=== PATIENT | male | born 1940 | race Caucasian/White ===

== ENCOUNTER 2017-10-23 19:05 | Inpatient (IN) | payer OTHER ==
[~2017-10-23] VITALS: Ht 167.6 cm; Wt 86.2 kg
[2017-10-23 20:30] VITALS: BP 172/93; PULSE 102; TEMP 36.7; O2SAT 91
[2017-10-23 21:20] VITALS: Ht 167.6 cm; Wt 86.2 kg
[2017-10-23] MEDS ORDERED: INFLUENZA VACCINE HIGH DOSE 65+ 0.5 ML SYR IM. ONE (21:45)
[2017-10-23] MEDS ORDERED: INFLUENZA ADMINISTRATION CHARGE ONE (21:45)
[2017-10-23] MEDS ORDERED: PATIENT'S ALLERGY INFO NEEDS ENTERED SCH (22:00)
[2017-10-23] MEDS ORDERED: FRS/40 PO (22:10)
[2017-10-23] MEDS ORDERED: POTA10CA28 PO (22:22)
[2017-10-23] MEDS ORDERED: TRAM-10 PO (22:22)
[2017-10-23] MEDS ORDERED: FENO145T26 PO (22:22)
[2017-10-23] MEDS ORDERED: DUTA0.5C PO (22:22)
[2017-10-23] MEDS ORDERED: DOXE10CA PO (22:22)
[2017-10-23] MEDS ORDERED: NTRGSL/4 UT (22:22)
[2017-10-23] MEDS ORDERED: MELO7.5T5 PO (22:22)
[2017-10-23] MEDS ORDERED: METO25TA4 PO (22:22)
[2017-10-23] MEDS ORDERED: MOME200A INH (22:22)
[2017-10-23] MEDS ORDERED: LEVO1TAB33 PO (22:22)
[2017-10-23] MEDS ORDERED: LOSA1TAB PO (22:22)
[2017-10-23] MEDS ORDERED: ESCI1TAB10 PO (22:22)
[2017-10-23] MEDS ORDERED: PANT1TAB3 PO (22:22)
[2017-10-23] MEDS ORDERED: TAMS0.4C38 PO (22:27)
[2017-10-23] MEDS ORDERED: ISOS30TA3 PO (22:27)
[2017-10-23] MEDS ORDERED: SITA100T3 PO (22:27)
[2017-10-23] MEDS ORDERED: ALBU2SYP9 NEB (22:27)
[2017-10-23] MEDS ORDERED: IPRASOL4 INH (22:27)
[2017-10-23] MEDS ORDERED: NITROGLYCERIN 0.4 MG SL PER TAB CHARGE UT PRN (23:15)
[2017-10-23] MEDS ORDERED: FUROSEMIDE 40 MG TAB PO PRN (23:15)
[2017-10-23] MEDS ORDERED: NITROGLYCERIN 0.4 MG SL PER TAB CHARGE SL PRN (23:30)
[2017-10-23] MEDS ORDERED: VANCOMYCIN INJ 1,000 MG in SODIUM CHLORIDE 0.9% 250ML 250 ML IV SCH (23:30)
[2017-10-23] MEDS ORDERED: MAGNESIUM HYDROXIDE SUSP 30 ML UDC PO PRN (23:30)
[2017-10-23] MEDS ORDERED: ONDANSETRON INJ 2 MG/ML 2 ML VIAL IV PRN (23:30)
[2017-10-23 23:55] VITALS: BP 164/84; PULSE 100; TEMP 36.9; O2SAT 91
[2017-10-24] VITALS (12 sets, daily range): BP systolic 147–169; BP diastolic 72–89; PULSE 61–95; TEMP 36.5–36.7; O2SAT 90–97
[2017-10-24] MEDS ORDERED: PIPERACILL/TAZOBAC IV 3.375 GM in DEXTROSE 5% 100ML IV ONE ×2
[2017-10-24] MEDS ORDERED: VANCOMYCIN INJ 2,000 MG in SODIUM CHLORIDE 0.9% 500ML 500 ML IV SCH ×2
[2017-10-24 00:04] LABS: BASO % 0.1 %; BASO ABS # 0.01 K/uL (0-0.2); HEMATOCRIT 42.6 % (42-52); HEMOGLOBIN 14.5 g/dL (14.0-18.0); IG# 0.16 K/uL (0.00-0.02); LYMPH % 4.7 %; LYMPH ABS # 0.58 K/uL (1.2-3.4); MEAN CELL VOLUME 89.3 fL (80-100); MEAN CORPUSCULAR HEMOGLOBIN 30.4 pg (25-34); MONO ABS # 0.12 K/uL (0.11-0.59); NEUT % 92.9 %; NEUT ABS # 11.43 K/uL (1.4-6.5); PLATELET COUNT 376 K/uL (130-400); RED CELL DISTRIBUTION WIDTH CV 14.2 % (11.5-14.5); RED CELL DISTRIBUTION WIDTH SD 46.6 fL (36.4-46.3)
--- NOTE | 2017-10-24 00:31 | History and Physical ---
History & Physical Date & Time of Service: Oct 24, 2017 at 00:00 Chief Complaint: Pneumonia, Copd Primary Care Physician: No Doctor, Assigned History of Present Illness Source: patient, hospital records The patient is a 77-year-old male with a past medical history of End Stage COPD , Type 2 diabetes, hypertension, congestive heart failure, and CAD with CABG x 4 , that presents as a transfer from [facility] for worsening shortness of breath and pneumonia. The patient was initially evaluated 3 days ago with cough and dyspnea and was sent on chest x-ray to have a right sided lung consolidation. The patient was started on by mouth Levaquin and discharged home. Earlier today the patient returned to the hospital with worsening shortness of breath and increased work of breathing. The patient states that he has had this cough for the last month, and it has recently become productive of clear sputum. He denies any fevers or chills during this time but states that in the hospital he is started to develop some sweats. The patient is normally on 2 L of oxygen at home, and currently smokes 2 packs per day which is how much she has been smoking for an extensive period of time. The patient also states that he has been having left sided pain around his abdomen and flank for the last month as well along with this cough. At [facility] his chest x-ray showed a questionable mass or infiltrate that had changed in size from a few years ago, and due to concern of the worsening pulmonary status of the patient with the concerning chest x-ray findings the patient was transferred to [facility]. His PCP is Mica Lacey in [place], [place] Family History Noncontributory Social History Smoking Status: Current Every Day Smoker Smokeless Tobacco Use: No Alcohol Use: none Drug Use: none Occupational Status: retired Immunizations History of Influenza Vaccine: Unknown History of Tetanus Vaccine?: Unknown History of Pneumococcal: Unknown History of Hepatitis B Vaccine: Unknown Multi-Drug Resistant Organisms History of MDRO: No Allergies Coded Allergies: Cortisone (Verified Allergy, Unknown, unknown, 10/23/17) Home Medications Scheduled Dutasteride (Avodart), 0.5 MG PO DAILY Escitalopram Oxalate (Lexapro), 20 MG PO DAILY Fenofibrate (Tricor ), 1 TAB PO DAILY Isosorbide Mononitrate Ext Rel (Imdur Ext Rel), 1 TAB PO DAILY Levofloxacin (Levaquin), 500 MG PO DAILY Losartan Potassium (Cozaar), 1 TAB PO DAILY Meloxicam (Mobic), 15 MG PO DAILY Metoprolol Succinate (Toprol Xl), 1 TAB PO DAILY Mometasone Furoate-Formoterol (Dulera 200/5 Mcg), 1 AER INH BID Pantoprazole (Protonix), 1 TAB PO DAILY Potassium Chloride (Micro-K Ext Rel), 20 MEQ PO DAILY Sitagliptin Phosphate (Januvia), 100 MG PO DAILY Tamsulosin Hcl (Flomax), 0.4 MG PO DAILY Scheduled PRN Albuterol Sulf (Ventolin), 2 NEB QID PRN for Shortness of Breath Furosemide (Lasix), 40 MG PO DAILY PRN for edema Ipratropium-Albuterol (Duoneb), 1 TREATMENT INH Q4H PRN for Shortness of Breath Nitroglycerin (Nitrostat), 0.4 MG UT PRN PRN for Chest Pain Tramadol (Ultram), 50 MG PO Q6H PRN for Pain Miscellaneous Medications Doxepin (Sinequan), 3 MG PO Review of Systems Constitutional: + sweats, + fatigue, No fever, No chills, No weight loss Respiratory: + cough, + sputum, + wheezing, + shortness of breath, + dyspnea on exertion, + dyspnea at rest, No hemoptysis Cardiovascular: + edema, No chest pain, No palpitations Abdomen: No pain, No nausea, No vomiting, No diarrhea, No constipation Endocrine: + fatigue Physical Exam Vital Signs Date Time Temp Pulse Resp B/P (MAP) Pulse Ox O2 Delivery O2 Flow Rate FiO2 10/23/17 21:20 Nasal Cannula 3.0 10/23/17 20:30 36.7 102 22 172/93 (119) 91 Nasal Cannula 3.0 General Appearance: WD/WN, no apparent distress Head: normocephalic, atraumatic Eyes: normal inspection, sclerae normal Neck: supple, no carotid bruits Respiratory/Chest: chest non-tender, + decreased breath sounds, + wheezing Cardiovascular: regular rate, rhythm, no gallop, no murmur Abdomen/GI: normal bowel sounds, non tender, soft, + distended Extremities/Musculoskelatal: no calf tenderness, + pedal edema Neurologic/Psych: alert, normal mood/affect, oriented x 3 Diagnostics Laboratory Results Results Past 24 Hours Test 10/23/17 23:54 Range/Units Impression Assessment and Plan The patient is a 77-year-old male with a past medical history of End Stage COPD , Type 2 diabetes, hypertension, congestive heart failure, and CAD with CABG x 4 , that presents as a transfer from [facility] for worsening shortness of breath and pneumonia. 1) Acute Hypoxic Respiratory Failure 2/2 RLL Pneumonia - Admit to telemetry - Chest CT --> Upper lobe pleural effusion with appearance of pneumonia/ multiple abscesses throughout the right lung. Also appearance of multiple liver mets - 2 View CXR ordered - Vancomycin, Zosyn, and Levaquin - Duonebs - Supplemental oxygen to maintain SpO2 > 92% - CBC, CMP - CXR from [facility]: Large airspace consolidation in the right lung base - Pulmonary Consult - Thoracic Surgery Consult 2) Questionable Malignancy - Son apparently stated that during previous hip surgery a tumor was discovered although at that time the patient refused further evaluation - On CT chest patient has appearance of liver mets in addition to concerning lung findings - Extensive smoking history (2 PPD for 40-50 years) 3) End Stage COPD - Supplemental oxygen - Duonebs - Currently on Dulera at home --> Ordered Budesonide 4) Diabetes Mellitus - Hold home Sitagliptin - BSG of 354 --> Gave 20 units of Lantus and 16 units of Novolog one time - Sliding scale insulin - BSG AC and HS - HbA1c - Glycemic consult 5) CHF - Continue home Lasix and Imdur - Continue home potassium - ECHO ordered 6) Hyperlipidemia - Continue home Fenofibrate 7) Hypertension - Continue home Losartan and metoprolol 8) Depression - Continue home Doxepin and Lexapro 9) BPH - Tamsulosin 10) Chronic Pain - Tramadol 50mg q6h PRN 11) Smoking Cessation - Nicotine Patch 21mg qAM 12) DVT Prophylaxis - SCDs 13) Code Status - Full Resuscitation Attending addendum: I have physically seen this patient, have supervised the medical residents activities, and agree with the H&P unless as otherwise noted. Assessment and Plan: Acute respiratory failure with hypoxia/pneumonia/pleural effusion/end-stage COPD -- Vancomycin IV per pharmacokinetic monitoring Zosyn 3.375 mg IV every 8 hours Levofloxacin 500 mg IV every 24 hours Duonebs every 4 hours while awake and every 2 hours when necessary. Pulmicort Respules 0.5 mg inhaled twice a day Guaifenesin extended release 600 mg by mouth twice a day Nasal cannula oxygen titrate to keep pulse ox greater than or equal to 92% Thoracic surgery consult Dr. Mock Pulmonology consult CAD/hypertension/CHF-- The patient will be admitted to telemetry for serial cardiac enzymes, serial EKG's, cardiac rhythm monitoring and a 2-D echocardiogram with Dopplers. Continue Lasix, Imdur, potassium, losartan and metoprolol tartrate Level of Care Telemetry Advanced Directives Existing Advance Directive: No Existing Living Will: No Existing Power of [employer]ist: No Resuscitation Status FULL RESUSCITATION VTE Prophylaxis VTE Risk Assessment Done? Y/N: Yes Risk Level: Moderate Given or contraindicated: SCD's Resident Tracking Resident Involvement: Resident Care Provided Care Provided: Adult Hospital Medicine
[2017-10-24 00:54] LABS: ALBUMIN 2.3 gm/dl (3.4-5.0); ALKALINE PHOSPHATASE 112 U/L (45-117); ALT/SGPT 32 U/L (12-78); AST/SGOT 52 U/L (15-37); BLOOD UREA NITROGEN 13 mg/dl (7-18); CALCIUM 9.2 mg/dl (8.5-10.1); CARBON DIOXIDE 30 mmol/L (21-32); CREATININE 0.98 mg/dl (0.60-1.40); GLUCOSE 354 mg/dl (70-99); POTASSIUM 4.6 mmol/L (3.5-5.1); SODIUM 131 mmol/L (136-145); TOTAL PROTEIN 6.9 gm/dl (6.4-8.2)
[2017-10-24] MEDS: BUDESONIDE 0.5 MG/2 ML VIAL (PULMICORT) INH SCH ×2 (01:15→07:42)
[2017-10-24] MEDS ORDERED: INSULIN GLARGINE SOLOSTAR 100 UNITS/ML 3 ML PEN SC ONE ×2 (01:15→08:00)
[2017-10-24] MEDS ORDERED: PHARMACY GLYCEMIC MGMT CONSULT PRN (01:41)
[2017-10-24] MEDS ORDERED: INSULIN GLARGINE SOLOSTAR 100 UNITS/ML 3 ML PEN SC STA (01:46)
[2017-10-24] MEDS ORDERED: GLUCOSE 40% GEL 15 GM TUBE PO PRN (02:00)
[2017-10-24] MEDS ORDERED: INSULIN HUMAN REGULAR PER UNIT 6 UNITS in SYRINGE 5.94 ML IV SCH (02:00)
[2017-10-24] MEDS ORDERED: GLUCAGON FOR INJ 1 MG VIAL SQ PRN (02:00)
[2017-10-24] MEDS ORDERED: GLUCOSE 10 TABS/TUBE PO PRN (02:00)
[2017-10-24] MEDS: LEVOFLOXACIN 750 MG TAB PO SCH ×2 (02:10→08:35)
[2017-10-24] MEDS ORDERED: IV FLUIDS COMPLETED PRN (03:00)
[2017-10-24] MEDS ORDERED: INSULIN ASPART 100 UNITS/ML 3 ML PEN SC SCH (04:00)
[2017-10-24] MEDS: PIPERACILL/TAZOBAC IV 3.375 GM in DEXTROSE 5% 100ML 100 ML IV SCH ×3 (04:16→20:19)
[2017-10-24] MEDS: ALBUT/IPRATROP 3MG/0.5MG NEB 3 ML VIAL INH SCH ×3 (07:42→19:35)
[2017-10-24] MEDS ORDERED: ALBUT/IPRATROP 3MG/0.5MG NEB 3 ML VIAL INH SCH (08:00)
[2017-10-24] MEDS ORDERED: FORMOTEROL FUMA NEBULIZER SOLN 20 MCG/2 ML VIAL INH SCH (08:00)
--- NOTE | 2017-10-24 08:06 | DIAGNOSTIC IMAGING REPORT ---
CHEST 2 VIEWS ROUTINE CLINICAL HISTORY: Pneumonia, Pleural Effusions COMPARISON STUDY: No previous studies for comparison. FINDINGS: Right basilar pleural effusion and or consolidative change. Right midlung infiltrate. Mild congestive failure. Left lung is grossly clear. Pulmonary vasculature is prominent. IMPRESSION: Congestive heart failure with a right basilar effusion versus superimposed consolidative infiltrate. The above report was generated using voice recognition software. It may contain grammatical, syntax or spelling errors. Electronically signed by: Minor Davila M.D. 10/24/2017 8:04 AM Dictated Date/Time: 10/24/2017 8:03 AM
--- NOTE | 2017-10-24 08:07 | DIAGNOSTIC IMAGING REPORT ---
CHEST DECUBS CLINICAL HISTORY: Pneumonia, Pleural Effusions basilar consolidation COMPARISON STUDY: Chest films same date FINDINGS: Layering right pleural effusion. Trace layering left effusion. Persistent prominence of pulmonary vasculature. IMPRESSION: 1. Layering right effusion. 2. Trace layering left effusion. The above report was generated using voice recognition software. It may contain grammatical, syntax or spelling errors. Electronically signed by: Minor Davila M.D. 10/24/2017 8:05 AM Dictated Date/Time: 10/24/2017 8:05 AM
[2017-10-24] MEDS ORDERED: VANCOMYCIN CONSULT ACTIVE PRN (08:30)
[2017-10-24] MEDS ORDERED: PIPERACILL/TAZOBAC CONSULT ACTIVE PRN (08:30)
--- NOTE | 2017-10-24 08:30 | DIAGNOSTIC IMAGING REPORT ---
(CHEST) THORAX WITHOUT CT DOSE: 660.85 mGy.cm HISTORY: Pneumonia, questionable mass TECHNIQUE: Multiaxial CT images of the chest were performed without contrast. A dose lowering technique was utilized adhering to the principles of ALARA. COMPARISON: None. FINDINGS: Multiple hypodense lesions seen throughout the liver with the largest in the left hepatic lobe measuring 3 cm. These are highly suspicious for metastatic disease. The visualized spleen and adrenal glands are unremarkable. Abnormal appearance to the partially visualized abdominal aorta which appears to be widened concerning for an aneurysm. This measures up to 5.6 cm in diameter. A few mildly enlarged upper abdominal lymph nodes measuring up to 2 cm. This is also concerning for metastatic disease. Mildly enlarged right supraclavicular lymph node measuring 16 x 14 mm. Mediastinal and left hilar lymphadenopathy. Subcarinal lymph node measures up to 5.6 cm. Dominant left hilar lymph node measures 2.5 cm. The heart is mildly enlarged. The right hilum appears to be replaced by an ill-defined soft tissue mass which is not usually measured on this noncontrast study. This results in complete obstruction of the bronchus intermedius. There is also mucous material within the right upper lobe bronchus. Small to moderate right pleural effusion. Complete collapse of the right middle lobe and right lower lobes. Consolidative and nodular densities within the majority of the right upper lobe. There is an irregular 7 mm nodule within the left upper lobe. A few tiny subpleural nodular densities within the left upper lobe are nonspecific. Mass effect at the distal right main pulmonary artery and right pulmonary veins due to the suspected right hilar mass. This is suboptimally evaluated on this noncontrast study. Old, healed right-sided rib fractures. IMPRESSION: 1. Large right ill-defined right hilar mass consistent with a primary bronchogenic malignancy. This results in obstruction of the bronchus intermedius with complete collapse of the right middle and lower lobes. Bronchoscopy is recommended for further evaluation. 2. There is right supraclavicular, mediastinal, bilateral hilar, and upper abdominal lymphadenopathy consistent with metastatic disease. 3. Multiple hypodense lesions within the liver also consistent with metastatic disease. 4. A 7 mm irregular nodule within the left upper lobe. This may represent metastatic disease. 5. Consolidative and nodular densities within the right upper lobe which may represent a postobstructive pneumonitis. However, extension of the right hilar malignancy cannot be excluded. 6. Small to moderate right pleural effusion. Electronically signed by: Wilber Pennington M.D. 10/24/2017 8:29 AM Dictated Date/Time: 10/24/2017 8:07 AM
[2017-10-24] MEDS: POTASSIUM CHLORIDE 10 MEQ TABCR PO SCH (08:33)
[2017-10-24] MEDS: TAMSULOSIN HCL 0.4 MG CAP PO SCH (08:34)
[2017-10-24] MEDS: FENOFIBRATE 145 MG TAB PO SCH (08:34)
[2017-10-24] MEDS: ESCITALOPRAM OXALATE 20 MG TAB PO SCH (08:34)
[2017-10-24] MEDS: ISOSORBIDE MONONITRATE 30 MG TABCR PO SCH (08:34)
[2017-10-24] MEDS: METOPROLOL SUCC 25MG EXT REL TAB PO SCH (08:34)
[2017-10-24] MEDS: PANTOprazole SOD 40 MG TAB PO SCH (08:35)
[2017-10-24] MEDS: NICOTINE 21 MG/24 HR TDSY TD SCH (08:35)
[2017-10-24] MEDS: LOSARTAN POTASSIUM 25 MG TAB PO SCH (08:35)
[2017-10-24] MEDS: INSULIN ASPART 100 UNITS/ML 3 ML PEN SC SCH ×4 (08:40→20:21)
--- NOTE | 2017-10-24 08:55 | Family Medicine Progress Note ---
Progress Note Date of Service Oct 24, 2017. Subjective Pt evaluation today including: conversation w/ patient, physical exam, chart review, lab review, review of studies, conversation w/ [facility] consultant (Dr Cain, Dr Mock) Patient feels his breathing has improved since coming in. He is a 2 pack/day smoker quit just one month previously and requests a nicotine patch. Discussed his cardiac history and had a CABG 14 years prior but reports not having a heart attack since then or further stents. He is unsure whether he has had a cardiac catheterization since then. He denies any worsening of swelling in his ankles. At baseline Constitutional: No fever, No chills Eyes: No worsening of vision ENT: No hearing loss Respiratory: + cough, + sputum, + wheezing, + shortness of breath Cardiovascular: + orthopnea, + edema, No chest pain Abdomen: No pain, No nausea, No vomiting, No diarrhea Male : No dysuria Heme: No abnormal bleeding/bruising Skin: No rash, No itch Medications Current Inpatient Medications Medications (Trade) Dose Ordered Sig/Ramin Route Start Time Stop Time Status Last Admin Dose Admin Escitalopram Oxalate (Lexapro Tab) 20 mg DAILY PO 10/24/17 09:00 11/23/17 08:59 10/24/17 08:34 20 MG Fenofibrate (Tricor Tab) 145 mg DAILY PO 10/24/17 09:00 11/23/17 08:59 10/24/17 08:34 145 MG Isosorbide Mononitrate (Imdur Ext Rel Tab) 30 mg DAILY PO 10/24/17 09:00 11/23/17 08:59 10/24/17 08:34 30 MG Losartan Potassium (coZAAR TAB) 25 mg DAILY PO 10/24/17 09:00 11/23/17 08:59 10/24/17 08:35 25 MG Metoprolol Succinate (Toprol Xl Tab) 25 mg DAILY PO 10/24/17 09:00 11/23/17 08:59 10/24/17 08:34 25 MG Nitroglycerin (Nitrostat Tab) 0.4 mg PRN PRN UT 10/23/17 23:15 11/22/17 23:14 Pantoprazole Sodium (Protonix Tab) 40 mg DAILY PO 10/24/17 09:00 11/23/17 08:59 10/24/17 08:35 40 MG Potassium Chloride (Klor-Con M10) 20 meq DAILY PO 10/24/17 09:00 11/23/17 08:59 10/24/17 08:33 20 MEQ Tamsulosin HCl (Flomax Cap) 0.4 mg DAILY PO 10/24/17 09:00 11/23/17 08:59 10/24/17 08:34 0.4 MG Tramadol HCl (Ultram Tab) 50 mg Q6H PRN PO 10/23/17 23:15 11/22/17 23:14 Miscellaneous Information (Order Awaiting Action) 1 ea QS N/A 10/24/17 00:00 11/23/17 00:00 Miscellaneous Information (Order Awaiting Action) 1 ea QS N/A 10/24/17 08:00 11/23/17 07:59 Piperacillin Sod/ Tazobactam Sod 3.375 gm/Dextrose 115 ml @ 28.75 mls/ hr Q8H IV 10/24/17 04:00 10/26/17 03:59 10/24/17 04:16 28.75 MLS/HR Levofloxacin (Levaquin Tab) 750 mg DAILY PO 10/23/17 23:30 10/25/17 23:29 10/24/17 08:35 750 MG Albuterol/ Ipratropium (Duoneb) 3 ml QIDR INH 10/24/17 08:00 11/23/17 07:59 10/24/17 07:42 3 ML Acetaminophen (Tylenol Tab) 650 mg Q4H PRN PO 10/23/17 23:30 11/22/17 23:29 Magnesium Hydroxide (Milk Of Magnesia Susp) 30 ml Q12H PRN PO 10/23/17 23:30 11/22/17 23:29 Ondansetron HCl (Zofran Inj) 4 mg Q6H PRN IV 10/23/17 23:30 11/22/17 23:29 Nicotine (Nicoderm Cq 21MG Patch) 1 patch QAM TD 10/24/17 09:00 11/23/17 08:59 10/24/17 08:35 1 PATCH Miscellaneous (Remove Nicoderm Patch) 1 ea HS N/A 10/24/17 21:00 11/23/17 20:59 Budesonide (Pulmicort Respules 0.5MG/ 2ML Neb Soln) 0.5 mg BIDR INH 10/24/17 01:15 11/23/17 01:14 10/24/17 07:42 0.5 MG Insulin Aspart (novoLOG ASPART) SLIDING SCALE G... ACHS SC 10/24/17 07:00 11/23/17 06:59 10/24/17 08:40 8 UNITS Miscellaneous Information (Consult Glycemic Management Pharmacy) 1 ea DAILY PRN N/A 10/24/17 01:41 11/23/17 01:40 Glucose (Glucose 40% Gel) 15-30 GRAMS 15 GRAMS... UD PRN PO 10/24/17 02:00 11/23/17 01:59 Glucose (Glucose Chew Tab) 4-8 Tablets 4 Tabl... UD PRN PO 10/24/17 02:00 11/23/17 01:59 Dextrose (Dextrose 50% 50ML Syringe) 25-50ML OF 50% DW IV FOR... UD PRN IV 10/24/17 02:00 11/23/17 01:59 Glucagon (Glucagon Inj) 1 mg UD PRN SQ 10/24/17 02:00 11/23/17 01:59 Albuterol/ Ipratropium (Duoneb) 3 ml Q2H PRN INH 10/24/17 02:30 11/23/17 02:29 Miscellaneous (Iv Fluids Completed) 1 ea PRN PRN N/A 10/24/17 03:00 10/24/18 02:59 Vancomycin HCl (Consult) 1 ea UD PRN N/A 10/24/17 08:30 10/26/17 23:59 Piperacillin Sod/ Tazobactam Sod (Consult) 1 ea UD PRN N/A 10/24/17 08:30 10/26/17 23:59 Vancomycin HCl 1000 mg/Sodium Chloride 270 ml @ 125 mls/hr Q12H IV 10/24/17 12:00 10/26/17 00:00 Objective Vital Signs Date Time Temp Pulse Resp B/P (MAP) Pulse Ox O2 Delivery O2 Flow Rate FiO2 10/24/17 07:40 36.5 93 18 164/89 (114) 93 3.0 10/24/17 04:00 92 Nasal Cannula 3.0 1/10/18 03:40 36.6 95 20 158/72 (100) 92 Nasal Cannula 3.5 10/24/17 02:14 86 18 95 Nasal Cannula 3.0 10/24/17 00:01 91 Nasal Cannula 3.0 10/23/17 23:55 36.9 100 18 164/84 (110) 91 Nasal Cannula 3.0 10/23/17 21:20 Nasal Cannula 3.0 10/23/17 20:30 36.7 102 22 172/93 (119) 91 Nasal Cannula 3.0 Physical Exam General Appearance: no apparent distress (short of breath), + mild distress Eyes: normal inspection (pupils equal) Neck: supple, no JVD, trachea midline Respiratory/Chest: + decreased breath sounds (right > left), + crackles ( throughout), + wheezing (mild intermittent expiratory wheezing) Cardiovascular: regular rate, rhythm, no murmur Abdomen: normal bowel sounds, non tender, soft Extremities: no calf tenderness, normal capillary refill, + pedal edema (2+ up to knees) Neurologic/Psychiatric: no motor/sensory deficits (grossly normal), alert, oriented x 3 Skin: normal color, warm/dry, no rash Laboratory Results 10/23/17 23:54 Red Blood Count 4.77, Mean Corpuscular Volume 89.3, Mean Corpuscular Hemoglobin 30.4, Mean Corpuscular Hemoglobin Concent 34.0, Mean Platelet Volume 10.0, Neutrophils (%) (Auto) 92.9, Lymphocytes (%) (Auto) 4.7, Monocytes (%) (Auto) 1.0, Eosinophils (%) (Auto) 0.0, Basophils (%) (Auto) 0.1, Neutrophils # (Auto) 11.43, Lymphocytes # (Auto) 0.58, Monocytes # (Auto) 0.12, Eosinophils # (Auto) 0.00, Basophils # (Auto) 0.01 10/23/17 23:54 Test 10/23/17 23:54 10/24/17 06:36 White Blood Count 12.30 K/uL (4.8-10.8) Red Blood Count 4.77 M/uL (4.7-6.1) Hemoglobin 14.5 g/dL (14.0-18.0) Hematocrit 42.6 % (42-52) Mean Corpuscular Volume 89.3 fL (80-100) Mean Corpuscular Hemoglobin 30.4 pg (25-34) Mean Corpuscular Hemoglobin Concent 34.0 g/dl (32-36) Platelet Count 376 K/uL (130-400) Mean Platelet Volume 10.0 fL (7.4-10.4) Neutrophils (%) (Auto) 92.9 % Lymphocytes (%) (Auto) 4.7 % Monocytes (%) (Auto) 1.0 % Eosinophils (%) (Auto) 0.0 % Basophils (%) (Auto) 0.1 % Neutrophils # (Auto) 11.43 K/uL (1.4-6.5) Lymphocytes # (Auto) 0.58 K/uL (1.2-3.4) Monocytes # (Auto) 0.12 K/uL (0.11-0.59) Eosinophils # (Auto) 0.00 K/uL (0-0.5) Basophils # (Auto) 0.01 K/uL (0-0.2) RDW Standard Deviation 46.6 fL (36.4-46.3) RDW Coefficient of Variation 14.2 % (11.5-14.5) Immature Granulocyte % (Auto) 1.3 % Immature Granulocyte # (Auto) 0.16 K/uL (0.00-0.02) Prothrombin Time 10.7 SECONDS (9.0-12.0) Prothromb Time International Ratio 1.0 (0.9-1.1) Anion Gap 7.0 mmol/L (3-11) Est Creatinine Clear Calc Drug Dose 69.6 ml/min Estimated GFR () 85.8 Estimated GFR (Non- 74.1 BUN/Creatinine Ratio 12.8 (10-20) Lactic Acid Level 1.8 mmol/L (0.4-2.0) Calcium Level 9.2 mg/dl (8.5-10.1) Total Bilirubin 0.3 mg/dl (0.2-1) Aspartate Amino Transf (AST/SGOT) 52 U/L (15-37) Alanine Aminotransferase (ALT/SGPT) 32 U/L (12-78) Alkaline Phosphatase 112 U/L (45-117) Troponin I < 0.015 ng/ml (0-0.045) Total Protein 6.9 gm/dl (6.4-8.2) Albumin 2.3 gm/dl (3.4-5.0) Globulin 4.6 gm/dl (2.5-4.0) Albumin/Globulin Ratio 0.5 (0.9-2) Beta-Hydroxybutyric Acid 8.82 mg/dL (0.2-2.81) Bedside Glucose 221 mg/dl (70-99) Assessment and Plan 77-year-old male with a past medical history of End Stage COPD, Type 2 diabetes , hypertension, congestive heart failure, and CAD with CABG x 4, that presents as a transfer from [facility] for worsening shortness of breath and pneumonia. Acute on chronic Hypoxic Respiratory Failure secondary to right middle and lower loba collapse from mass obstruction - Duonebs - Supplemental oxygen to maintain SpO2 > 92% - ABG to assess for hypercapnia Right hilar mass obstructing bronchus intermedius with collapse of right middle and lower lobes - Thoracic Surgery Consult - discussed with Dr Mock and plan for bronchoscopy this afternoon, will be NPO till then Suspected metastatic disease - multiple hypodense lesions seen throughout the liver - Son apparently stated that during previous hip surgery a tumor was discovered although at that time the patient refused further evaluation - On CT chest patient has appearance of liver mets in addition to concerning lung findings - Extensive smoking history (2 PPD for 40-50 years) - Will consult heme/oncology when more stable Possible pneumonia - will continue on Vancomycin, Zosyn and Levaquin pending bronchoscopy results - Consult pulmonology pending Severe COPD - On 2L O2 at home - Duonebs QIDR, then Q2H PRN for wheezing - Switch from Dulera to Pulmicort nebulizers Type 2 Diabetes Mellitus - HbA1C 11.2 - Hold home Sitagliptin - BSG AC and HS - Cancel Glycemic consult - Give lantus 15 units SQ BID, Sliding scale insulin: correction 25, carb ratio 8 (will need tighter control if starts on steroids) Congestive heart failure (unknown systolic vs. diastolic) / Coronary artery disease / hypertension / Hyperlipidemia - does not appear to be in acute failure - unclear why he is not on aspirin or statin (request outpatient notes) - continue metoprolol, losartan and ISMN - Continue fenofibrate - takes lasix PRN outpatient - ECHO ordered - EKG on admission with nonspecific T wave abnormality (no previous to compare) - consult cardiology as per thoracic surgery recommendations Depression - Continue home Doxepin and Lexapro BPH - Continue Tamsulosin Chronic Pain - Continue Tramadol 50mg q6h PRN - Hold meloxicam as awaiting bronchoscopy Smoking Cessation - Nicotine Patch 21mg qAM VTE Prophylaxis - SCDs - chemical prophylaxis deferred pending bronchoscopy results Code Status - Full Disposition - continued on telemetry given cardiac risk factors and needing high level of care due to severity of illness Resident Tracking Resident Involvement: Resident Care Provided Care Provided: Adult Hospital Medicine Reviewed: Pt Seen/Exam by Me History breathing still difficult but better than last night. still coughing with phlegm Constitutional: denies: fever Cardiovascular: denies chest pain Gastrointestinal/Abdominal: positive: other (no bowel movement today) General Appearance: mild distress Respiratory: no respiratory distress, decreased breath sounds, rhonchi Cardiovascular: regular rate, rhythm Neurologic/Psychiatric: alert, oriented x 3 Skin Characteristics: warm/dry Assessment/Plan Resident Physician Supervision Note: I independently interviewed and examined the patient and verified the bryant history and physical, reviewed labs and image studies, discussed the case with the resident Dr. Rosas and agree with the findings and care plan.
[2017-10-24 08:57] LABS: HEMOGLOBIN A1C 11.7 % (4.5-5.6)
[2017-10-24] MEDS ORDERED: MOMETASONE FUROATE 14 PUFF/1 INHALER INH SCH (09:00)
[2017-10-24] MEDS ORDERED: SITAGLIPTIN 100 MG TAB PO SCH (09:00)
[2017-10-24] MEDS ORDERED: METOPROLOL SUCC 25MG EXT REL TAB PO STA (09:34)
--- NOTE | 2017-10-24 09:56 | Cardiology Consultation ---
Cardiology Consultation Date of Consultation: Oct 24, 2017. Requesting Physician: Dr. Mock, Dr. Rosas, Dr. Miranda Attending Physician: Dr. Cain Reason for Consultation: Pre-op clearance for endoscopy to investigate questionable mass in lungs Pt evaluation today including: conversation w/ patient, physical exam, chart review, lab review History of Present Illness This note is written by Brea Demarco, PGY 1 [facility] Med Resident. Mr. Noguera is a pleasant 77-year-old male with a past medical history of End Stage COPD, Type 2 diabetes, hypertension, congestive heart failure, and CAD with CABG x 4, who presents as a transfer from [facility] for worsening shortness of breath and pneumonia. He was evaluated 4 days ago at [facility] and sent home on aquin, returned yesterday with worsening shortness of breath and then transferred here. He has been found on CXR to have a questionable mass in his lungs, and is to undergo a scope to evaluate further. The purpose of this consultation is to assess him from a cardiac point of view for such procedure. Mr. Noguera states that his only heart attack was in 2002, for which he underwent a bypass surgery. Afterwards, he was followed by a podiatry professor but only for a brief time, and then did not attend to any more follow up appointments. When asked who prescribes his cardiac medications, he states his family doctor does, and that generally he does not see a doctor regularly, only when he "has to." Mr. Noguera lives at home by himself and is on 3L O2 daily. His daily routine is quite sedentary, denies climbing stairs, and goes from bedroom to kitchen to living room with his O2 tank. He describes having a sharp chest pain on average 4 days out of 7 days per week for the last few months, which is resolved with one dose of his nitrostat daily, however he denies a pressure. He takes all his other medications as scheduled. He denies PND, leg swelling or palpitations however he describes needing to sleep in a recliner for the past 4- 5 months which was new for him. Prior to 4-5 months, he was able to sleep in his bed with one pillow. Pt states he is a former smoker, quit 1 month ago. Prior to that smoked 2 PPD. Currently denies chest pain, and says he is breathing much better than yesterday. This note is written by Brea Demarco, PGY 1 [facility] Med Resident. Past Medical/Surgical History CABG x 4 2002 Social History Smoking Status: Former Smoker (2 packs per day. Pt states he quit 1 month ago.) History of Alcohol Use: No Review of Systems Respiratory: + see HPI Cardiac: + see HPI Allergies Coded Allergies: Cortisone (Verified Allergy, Unknown, unknown, 10/23/17) Medications Current Inpatient Medications Medications (Trade) Dose Ordered Sig/Ramin Route Start Time Stop Time Status Last Admin Dose Admin Escitalopram Oxalate (Lexapro Tab) 20 mg DAILY PO 10/24/17 09:00 11/23/17 08:59 10/24/17 08:34 20 MG Fenofibrate (Tricor Tab) 145 mg DAILY PO 10/24/17 09:00 11/23/17 08:59 10/24/17 08:34 145 MG Isosorbide Mononitrate (Imdur Ext Rel Tab) 30 mg DAILY PO 10/24/17 09:00 11/23/17 08:59 10/24/17 08:34 30 MG Losartan Potassium (coZAAR TAB) 25 mg DAILY PO 10/24/17 09:00 11/23/17 08:59 10/24/17 08:35 25 MG Metoprolol Succinate (Toprol Xl Tab) 25 mg DAILY PO 10/24/17 09:00 11/23/17 08:59 10/24/17 08:34 25 MG Nitroglycerin (Nitrostat Tab) 0.4 mg PRN PRN UT 10/23/17 23:15 11/22/17 23:14 Pantoprazole Sodium (Protonix Tab) 40 mg DAILY PO 10/24/17 09:00 11/23/17 08:59 10/24/17 08:35 40 MG Potassium Chloride (Klor-Con M10) 20 meq DAILY PO 10/24/17 09:00 11/23/17 08:59 10/24/17 08:33 20 MEQ Tamsulosin HCl (Flomax Cap) 0.4 mg DAILY PO 10/24/17 09:00 11/23/17 08:59 10/24/17 08:34 0.4 MG Tramadol HCl (Ultram Tab) 50 mg Q6H PRN PO 10/23/17 23:15 11/22/17 23:14 Miscellaneous Information (Order Awaiting Action) 1 ea QS N/A 10/24/17 00:00 11/23/17 00:00 Miscellaneous Information (Order Awaiting Action) 1 ea QS N/A 10/24/17 08:00 11/23/17 07:59 Piperacillin Sod/ Tazobactam Sod 3.375 gm/Dextrose 115 ml @ 28.75 mls/ hr Q8H IV 10/24/17 04:00 10/26/17 03:59 10/24/17 04:16 28.75 MLS/HR Levofloxacin (Levaquin Tab) 750 mg DAILY PO 10/23/17 23:30 10/25/17 23:29 10/24/17 08:35 750 MG Albuterol/ Ipratropium (Duoneb) 3 ml QIDR INH 10/24/17 08:00 11/23/17 07:59 10/24/17 07:42 3 ML Acetaminophen (Tylenol Tab) 650 mg Q4H PRN PO 10/23/17 23:30 11/22/17 23:29 Magnesium Hydroxide (Milk Of Magnesia Susp) 30 ml Q12H PRN PO 10/23/17 23:30 11/22/17 23:29 Ondansetron HCl (Zofran Inj) 4 mg Q6H PRN IV 10/23/17 23:30 11/22/17 23:29 Nicotine (Nicoderm Cq 21MG Patch) 1 patch QAM TD 10/24/17 09:00 11/23/17 08:59 10/24/17 08:35 1 PATCH Miscellaneous (Remove Nicoderm Patch) 1 ea HS N/A 10/24/17 21:00 11/23/17 20:59 Budesonide (Pulmicort Respules 0.5MG/ 2ML Neb Soln) 0.5 mg BIDR INH 10/24/17 01:15 11/23/17 01:14 10/24/17 07:42 0.5 MG Insulin Aspart (novoLOG ASPART) SLIDING SCALE G... ACHS SC 10/24/17 07:00 11/23/17 06:59 10/24/17 08:40 8 UNITS Miscellaneous Information (Consult Glycemic Management Pharmacy) 1 ea DAILY PRN N/A 10/24/17 01:41 11/23/17 01:40 Glucose (Glucose 40% Gel) 15-30 GRAMS 15 GRAMS... UD PRN PO 10/24/17 02:00 11/23/17 01:59 Glucose (Glucose Chew Tab) 4-8 Tablets 4 Tabl... UD PRN PO 10/24/17 02:00 11/23/17 01:59 Dextrose (Dextrose 50% 50ML Syringe) 25-50ML OF 50% DW IV FOR... UD PRN IV 10/24/17 02:00 11/23/17 01:59 Glucagon (Glucagon Inj) 1 mg UD PRN SQ 10/24/17 02:00 11/23/17 01:59 Albuterol/ Ipratropium (Duoneb) 3 ml Q2H PRN INH 10/24/17 02:30 11/23/17 02:29 Miscellaneous (Iv Fluids Completed) 1 ea PRN PRN N/A 10/24/17 03:00 10/24/18 02:59 Vancomycin HCl (Consult) 1 ea UD PRN N/A 10/24/17 08:30 10/26/17 23:59 Piperacillin Sod/ Tazobactam Sod (Consult) 1 ea UD PRN N/A 10/24/17 08:30 10/26/17 23:59 Vancomycin HCl 1000 mg/Sodium Chloride 270 ml @ 125 mls/hr Q12H IV 10/24/17 12:00 10/26/17 00:00 Insulin Glargine (Lantus Solostar Pen) 15 units BID SC 10/24/17 21:00 11/23/17 20:59 UNV Physical Exam Vital Signs Past 12 Hours Date Time Temp Pulse Resp B/P (MAP) Pulse Ox O2 Delivery O2 Flow Rate FiO2 10/24/17 07:40 36.5 93 18 164/89 (114) 93 3.0 10/24/17 04:00 92 Nasal Cannula 3.0 10/24/17 03:40 36.6 95 20 158/72 (100) 92 Nasal Cannula 3.5 10/24/17 02:14 86 18 95 Nasal Cannula 3.0 10/24/17 00:01 91 Nasal Cannula 3.0 10/23/17 23:55 36.9 100 18 164/84 (110) 91 Nasal Cannula 3.0 10/23/17 21:20 Nasal Cannula 3.0 Constitutional: General Apperance: well-nourished Level of Distress: NAD Psychiatric: Mental Status: normal mood, normal affect Lungs: Respiratory effort: use of accessory muscles Auscultation: no rales/crackles, expiratory wheezing Cardiovascular: Heart Auscultation: normal S1, normal S2, no murmurs, no rubs, no gallops, tachycardia Peripheral Pulses: Bruits: none appreciated Radial Pulse: normal on the left, normal on the right Dorsalis Pedis Pulse: normal on the left, normal on the right Abdomen: Bowel Sounds: normal Inspection & Palpation: soft, non-distended Extremities: no cyanosis, edema (trace edema) Data Laboratory Results: Last 24 Hours Test 10/23/17 23:54 10/24/17 02:32 10/24/17 06:36 White Blood Count 12.30 K/uL Red Blood Count 4.77 M/uL Hemoglobin 14.5 g/dL Hematocrit 42.6 % Mean Corpuscular Volume 89.3 fL Mean Corpuscular Hemoglobin 30.4 pg Mean Corpuscular Hemoglobin Concent 34.0 g/dl Platelet Count 376 K/uL Mean Platelet Volume 10.0 fL Neutrophils (%) (Auto) 92.9 % Lymphocytes (%) (Auto) 4.7 % Monocytes (%) (Auto) 1.0 % Eosinophils (%) (Auto) 0.0 % Basophils (%) (Auto) 0.1 % Neutrophils # (Auto) 11.43 K/uL Lymphocytes # (Auto) 0.58 K/uL Monocytes # (Auto) 0.12 K/uL Eosinophils # (Auto) 0.00 K/uL Basophils # (Auto) 0.01 K/uL RDW Standard Deviation 46.6 fL RDW Coefficient of Variation 14.2 % Immature Granulocyte % (Auto) 1.3 % Immature Granulocyte # (Auto) 0.16 K/uL Prothrombin Time 10.7 SECONDS Prothromb Time International Ratio 1.0 Sodium Level 131 mmol/L Potassium Level 4.6 mmol/L Chloride Level 94 mmol/L Carbon Dioxide Level 30 mmol/L Anion Gap 7.0 mmol/L Blood Urea Nitrogen 13 mg/dl Creatinine 0.98 mg/dl Est Creatinine Clear Calc Drug Dose 69.6 ml/min Estimated GFR () 85.8 Estimated GFR (Non- 74.1 BUN/Creatinine Ratio 12.8 Random Glucose 354 mg/dl Estimated Average Glucose 289 mg/dl Hemoglobin A1c 11.7 % Lactic Acid Level 1.8 mmol/L Calcium Level 9.2 mg/dl Total Bilirubin 0.3 mg/dl Aspartate Amino Transf (AST/SGOT) 52 U/L Alanine Aminotransferase (ALT/SGPT) 32 U/L Alkaline Phosphatase 112 U/L Troponin I < 0.015 ng/ml Total Protein 6.9 gm/dl Albumin 2.3 gm/dl Globulin 4.6 gm/dl Albumin/Globulin Ratio 0.5 Beta-Hydroxybutyric Acid 8.82 mg/dL Bedside Glucose 278 mg/dl 221 mg/dl Imaging: CHEST 2 VIEWS ROUTINE CLINICAL HISTORY: Pneumonia, Pleural Effusions COMPARISON STUDY: No previous studies for comparison. FINDINGS: Right basilar pleural effusion and or consolidative change. Right midlung infiltrate. Mild congestive failure. Left lung is grossly clear. Pulmonary vasculature is prominent. IMPRESSION: Congestive heart failure with a right basilar effusion versus superimposed consolidative infiltrate. CHEST DECUBS CLINICAL HISTORY: Pneumonia, Pleural Effusions basilar consolidation COMPARISON STUDY: Chest films same date FINDINGS: Layering right pleural effusion. Trace layering left effusion. Persistent prominence of pulmonary vasculature. IMPRESSION: 1. Layering right effusion. 2. Trace layering left effusion. (CHEST) CT THORAX WITHOUT HISTORY: Pneumonia, questionable mass TECHNIQUE: Multiaxial CT images of the chest were performed without contrast. A dose lowering technique was utilized adhering to the principles of ALARA. COMPARISON: None. IMPRESSION: 1. Large right ill-defined right hilar mass consistent with a primary bronchogenic malignancy. This results in obstruction of the bronchus intermedius with complete collapse of the right middle and lower lobes. Bronchoscopy is recommended for further evaluation. 2. There is right supraclavicular, mediastinal, bilateral hilar, and upper abdominal lymphadenopathy consistent with metastatic disease. 3. Multiple hypodense lesions within the liver also consistent with metastatic disease. 4. A 7 mm irregular nodule within the left upper lobe. This may represent metastatic disease. 5. Consolidative and nodular densities within the right upper lobe which may represent a postobstructive pneumonitis. However, extension of the right hilar malignancy cannot be excluded. 6. Small to moderate right pleural effusion. EKG: Vent. rate 98 BPM ND interval 242 ms QRS duration 102 ms QT/QTc 360/459 ms P-R-T axes 103 -42 73 Sinus rhythm with 1st degree A-V block Left axis deviation Nonspecific T wave abnormality Abnormal ECG Stable from 10/23/17. Telemetry reviewed: Sinus tachycardia, rate 90-100. Assessment & Plan This note is written by Brea Demarco, PGY 1 [facility] Med Resident. Mr. Noguera is a pleasant 77 year old male here to be evaluated for lung malignancy with possible metastases. From a cardiac perspective, he is reasonably stable for the proposed endoscopic procedure. We recommend the following: Tachycardia, hypertension - ordered additional dose of Toprol Xl 25mg LA, CABG x4, stable angina - continue Nitrostat PRN - continue Isosorbide Mononitrate (Imdur Ext Rel Tab) 30 mg daily, Losartan 25mg daily, Toprol Xl 25mg daily and Klor-con 20meq. Smoking cessation - continue Nicoderm patch daily Diabetes - continue blood sugar management per hospitalist team End stage COPD - continue inhalers and antibiotics per hospitalist team Thank you for allowing us to participate in his care. This note is written by Brea Demarco, PGY 1 [facility] Med Resident. Mr. Noguera has a longstanding history of coronary artery disease. He gives a history of chronic stable angina pectoris, however, his symptoms are atypical in nature. We have discussed increasing his beta-norah to better control his resting heart rate and blood pressure. Unfortunately, it appears that the patient may have a malignancy. Feel that it is best to proceed with bronchoscopy and biopsy at this time. No further cardiac evaluation is necessary. Would be sure to continue his beta-norah medications in the perioperative period.
[2017-10-24] MEDS ORDERED: NICOTINE 21 MG/24 HR TDSY TD ONE (09:57)
--- NOTE | 2017-10-24 11:16 | SURGICAL CONSULTATION ---
DATE OF CONSULTATION: 10/24/2017 REASON FOR CONSULTATION: Right pleural effusion. HISTORY OF PRESENT ILLNESS: This is a very nice 77-year-old male with history of heavy cigarette smoking. He began smoking at age 11 and continues to smoke in an average of 2 packs a day for the last 66 years. He has had increasing shortness of breath. He was evaluated at [facility] near his hometown of [place]. They felt he had a pneumonia and was discharged home on Levaquin only and to come back and a chest x-ray and then a CT showed enlarging right pleural effusion, and also has consolidation of the right middle lobe and lower lobe and has marked mediastinal adenopathy. He was transferred here for further evaluation. I was asked to see him for this pleural effusion. The patient is a heavy smoker. He has continued to smoke up until his admission. He has been on 3 liters of O2 daily. He had some chest pain in the last few months for which he takes Nitrostat. He has also had some orthopnea at night. He tells me he has really not lost too much weight. He is short of breath and he does have a cough. He states that he feels much better than he felt when he was admitted to the hospital. PAST MEDICAL HISTORY: 1. Coronary artery disease. 2. Chronic obstructive pulmonary disease. 3. Episodes of congestive heart failure. 4. Hypertension. 5. Active cigarette smoking. 6. Benign prostatic hypertrophy. ALLERGIES: CORTISONE. FAMILY MEDICAL HISTORY: The patient's mother at 51 from myocardial infarction. Mother at 67 from complications of diabetes. He had a sister with type 1 diabetes and at age 37. He has several siblings who are still living, although he did have a 47-year-old brother who from a myocardial infarction. The patient has 5 children and multiple grandchildren they are all healthy. SOCIAL HISTORY: He was in the [employer] for 3 years in the early 50s. 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 He is a heavy smoker. Denies the use of alcohol. He lives alone. He is independent in his activities of daily living. PAST SURGICAL HISTORY: Coronary artery bypass grafting x4 in 2002. MEDICATIONS: (at home): 1. Ventolin 2. Sinequan. 3. Avodart. 4. TriCor. 5. Lasix. 6. Lexapro. 7. DuoNeb treatments. 8. Cozaar. 9. Imdur. 10. Mobic. 11. Toprol-XL. 12. Nitrostat p.r.n. sublingual. 13. Dulera. 14. Protonix. 15. Potassium supplements. 16. Flomax. 17. Januvia. 18. Ultram. REVIEW OF SYSTEMS: The patient states his weight has not really changed much. He has had some night sweats. He has also been quite fatigued and more short of breath. He has a cough and states it occasionally produced some greenish or light yellow sputum. He has also complained of wheezing and has had marked dyspnea on exertion. He cannot lay flat. He has had some chest pain which sounds anginal in nature and he uses Nitrostat for that. He denies palpitations. He has had no nausea, vomiting or diarrhea. He takes Flomax for his benign prostatic hypertrophy. He denies any peripheral edema, although on exam, he has 2+ edema. He has had no neurologic events such as amaurosis fugax, transient ischemic attacks. He has had no skin breakdown. He has had no changes in his visual or auditory systems. PHYSICAL EXAMINATION: GENERAL: This is an elderly appearing 77-year-old male who stands 5 feet 6 inches tall and weighs 192 pounds. HEENT: His extraocular movements are intact. His pupils are equal, round and reactive. His sclerae are anicteric. He has no nasolabial flattening. He is edentulous. He wears upper and lower denture plates. He has no oral mucosal lesions. His oral mucosa is dry. NECK: Supple. I detect no supraclavicular, cervical or axillary adenopathy. He has no carotid bruits. LUNGS: He has some wheezing and some rhonchi in his upper airways. He has decreased breath sounds in the right base. HEART: He has a regular rate and rhythm of his heart. ABDOMEN: A bit protuberant, soft, nontender. EXTREMITIES: He has 2+ edema of his lower extremities. I am having difficulty palpating his pulses, but his feet are warm and well perfused and he has no joint effusions. NEUROLOGIC: He is completely intact. He was ambulating in his room. DATA: I reviewed the CT scan and it is pretty impressive. He has got marked mediastinal adenopathy. In addition, he has a large right hilar mass and this is causing obstruction in the bronchus intermedius with subsequent collapse. He has marked adenopathy, although I did not feel the right supraclavicular lesion. He also has possible liver lesions. He has got a small to moderate effusion, but I do not think this is his major problem. ASSESSMENT AND PLAN: Right hilar mass. I attempted to schedule him for an endobronchial ultrasound for this afternoon; however, he had already eaten breakfast. I have discussed this with Dr. Chidi Huff and Dr. Huff will see him and schedule him. It is possible he would offer something from an endobronchial perspective to open his middle lobe or lower lobe. Diagnosis is paramount importance as he will need radiation to get these airways opened up. I will be going out of town tomorrow, and I have asked Dr. Huff to kindly see Mr. Noguera.
[2017-10-24] MEDS: VANCOMYCIN INJ 1,000 MG in SODIUM CHLORIDE 0.9% 250ML 250 ML IV SCH (11:25)
[2017-10-24] MEDS ORDERED: MIDAZOLAM HCL 5 MG/ML 1 ML VIAL IV STA (12:02)
[2017-10-24] MEDS ORDERED: LORAZEPAM 2 MG/ML 1 ML VIAL IV STA (12:16)
[2017-10-24] MEDS ORDERED: LORAZEPAM 2 MG/ML 1 ML VIAL ONE (12:17)
--- NOTE | 2017-10-24 12:40 | ECHOCARDIOGRAM REPORT ---
*NOTICE TO RECEIVING REPUBLICAN AGENCY This information is strictly Confidential and protected under [place] law. [place] law prohibits you from making any further disclosure of this information unless further disclosure is expressly permitted by the written consent of the person to whom it pertains or is authorized by law. A general authorization for the release of medical or other information is not sufficient for this purpose. Hospital accepts no responsibility if the information is made available to any other person, INCLUDING THE PATIENT. Interpretation Summary * Name: NIKOS CANTU Study Date: 10/24/2017 06:38 AM BP: 164/89 mmHg * Patient Location: C.2T\S\S244\S\1 HR: 98 * : 1940 (M/d/yyyy) Gender: Male Height: 67 in * Age: 77 yrs Ethnicity: CA Weight: 197 lb * Ordering Physician: Efraín Valdez * Referring Physician: UNKNOWN * Performed By: Sosa Mckeon RCS * * Reason For Study: CHF * BSA: 2.0 m2 * -- Conclusions -- * Left ventricular systolic function is normal. * Small akinetic and thinned segment involving the proximal inferoposterior wall. * Ejection Fraction = 60-65%. * There is mild concentric left ventricular hypertrophy. * Diastolic dysfunction is suggested. * Aortic valve sclerosis moderate, without significant aortic valvular stenosis. * There is mild mitral regurgitation. Procedure Details * A complete two-dimensional transthoracic echocardiogram was performed (2D, M-mode, Doppler and color flow Doppler). Left Ventricle * The left ventricle is normal in size. * There is mild concentric left ventricular hypertrophy. * Left ventricular systolic function is normal. * Ejection Fraction = 60-65%. * Small akinetic and thinned segment involving the proximal inferoposterior wall. Right Ventricle * The right ventricle is grossly normal size. * The right ventricular systolic function is normal as assessed by tricuspid annular plane systolic excursion (TAPSE) (normal >1.5 cm). Atria * The left atrium is mildly dilated. * The right atrium is mildly dilated. Mitral Valve * The mitral valve is grossly normal. * There is no mitral valve stenosis. * There is mild mitral regurgitation. Tricuspid Valve * The tricuspid valve is not well visualized, but is grossly normal. * There is no tricuspid stenosis. * Significant tricuspid regurgitation is absent. Aortic Valve * The aortic valve is trileaflet. * The aortic valve opens well. * Aortic valve sclerosis moderate, without significant aortic valvular stenosis. * No aortic regurgitation is present. Pulmonic Valve * The pulmonary valve is not well seen, but the Doppler examination is normal without significant regurgitation or stenosis. Great Vessels * The aortic root is normal size. * The pulmonary is not well visualized. Pericardium/Pleural * There is no pericardial effusion. Great Vessels * Normal inferior vena cava size and collapsability with sniff indicates a normal right atrial pressure of 3 mmHg Left Ventricular Diastolic Function * Diastolic dysfunction is suggested. MMode 2D Measurements and Calculations IVSd 1.6 cm IVSs 2.2 cm LVIDd 5.2 cm LVIDs 3.8 cm LVPWd 1.6 cm LVPWs 1.7 cm IVS/LVPW 0.98 FS 26.2 % EDV(Teich) 127.2 ml ESV(Teich) 62.2 ml EF(Teich) 51.1 % EDV(cubed) 137.3 ml ESV(cubed) 55.2 ml EF(cubed) 59.8 % % IVS thick 38.5 % % LVPW thick 4.4 % LV mass(C)d 365.2 grams LV mass(C)dI 181.8 grams/m\S\2 LV mass(C)s 325.2 grams LV mass(C)sI 161.8 grams/m\S\2 SV(Teich) 64.9 ml SI(Teich) 32.3 ml/m\S\2 SV(cubed) 82.2 ml SI(cubed) 40.9 ml/m\S\2 Ao root diam 3.3 cm Ao root area 8.6 cm\S\2 ACS 1.4 cm LA dimension 3.4 cm LA/Ao 1.0 LVOT diam 1.8 cm LVOT area 2.6 cm\S\2 LVAd ap4 36.2 cm\S\2 LVLd ap4 8.3 cm EDV(MOD-sp4) 126.2 ml EDV(sp4-el) 133.9 ml LVAs ap4 22.2 cm\S\2 LVLs ap4 7.2 cm ESV(MOD-sp4) 55.5 ml ESV(sp4-el) 57.6 ml EF(MOD-sp4) 56.0 % EF(sp4-el) 57.0 % LVAd ap2 37.6 cm\S\2 LVLd ap2 7.7 cm EDV(MOD-sp2) 151.7 ml EDV(sp2-el) 156.6 ml LVAs ap2 21.3 cm\S\2 LVLs ap2 6.5 cm ESV(MOD-sp2) 62.9 ml ESV(sp2-el) 59.5 ml EF(MOD-sp2) 58.5 % EF(sp2-el) 62.0 % LVLd %diff -8.19 % EDV(MOD-bp) 141.5 ml LVLs %diff -11.92 % ESV(MOD-bp) 61.7 ml EF(MOD-bp) 56.4 % SV(MOD-sp4) 70.7 ml SI(MOD-sp4) 35.2 ml/m\S\2 SV(MOD-sp2) 88.7 ml SI(MOD-sp2) 44.2 ml/m\S\2 SV(MOD-bp) 79.8 ml SI(MOD-bp) 39.7 ml/m\S\2 SV(sp4-el) 76.4 ml SI(sp4-el) 38.0 ml/m\S\2 SV(sp2-el) 97.1 ml SI(sp2-el) 48.3 ml/m\S\2 Doppler Measurements and Calculations MV E max rona 126.7 cm/sec MV P1/2t max rona 134.6 cm/sec MV P1/2t 69.6 msec MVA(P1/2t) 3.2 cm\S\2 MV dec slope 566.4 cm/sec\S\2 MV dec time 0.20 sec Ao V2 max 122.5 cm/sec Ao max PG 6.0 mmHg Ao max PG (full) 2.5 mmHg RUDY(V,A) 1.9 cm\S\2 RUDY(V,D) 1.9 cm\S\2 LV V1 max PG 3.5 mmHg LV V1 max 93.4 cm/sec PA V2 max 71.6 cm/sec PA max PG 2.1 mmHg TR max rona 280.4 cm/sec
--- NOTE | 2017-10-24 13:05 | Procedure Note ---
Procedure Note Date of Service Oct 24, 2017. Procedure Note Procedures: right sided Thoracentesis Consent: obtained via the patient and placed into the chart Pre-Procedural Dx: Left-sided Pleural effusion Post-Procedural Dx: Left-sided pleural effusion possibly malignant Analgesia: 8cc of 1% Liquid Lidocaine Procedure: The patient was placed in an upright position and thoracic US was used to select a spot for the procedure. A spot along the posterior axillary line was marked in the 7th intercostal space. The patient was then draped and prepped in a sterile fashion. A modified Seldinger technique was then used for catheter placement. Flowing this approximately 1500cc of brownish alvarado pleural fluid was removed. The patient was then cleaned and placed at a 60 degree angle in the bed were the US was used to evaluate for possible pneumothorax. The US showed good lung sliding and starry night sign. EBL: None Complications: None
[2017-10-24 13:57] LABS: PLEURAL FLUID TOTAL PROTEIN 3.2 g/dl
--- NOTE | 2017-10-24 14:35 | Pharmacy Progress Note ---
Pharmacy Abx Initial Consult Date of Service Oct 24, 2017. Pharmacy Dosing Scope Date of Consult: 10/24/17 Consultation requested by: Dr. Valdez Pharmacy is consulted to initiate empiric Vancomycin and Zosyn IV dosing therapies r/o pneumonia, order appropriate labs and adjust drug dose/frequency. Subjective The patient is a 77 year old male admitted on Oct 24, 2017 at 10:39. Objective Height (Feet): 5 Height (Inches): 6.00 Weight (Kilograms): 87.300 Vital Signs (Past 12Hrs) Vital Signs Past 12 Hours Date Time Temp Pulse Resp B/P (MAP) Pulse Ox O2 Delivery O2 Flow Rate FiO2 10/24/17 11:34 88 18 97 Nasal Cannula 3.0 10/24/17 11:20 36.7 79 22 162/79 (106) 95 3.0 10/24/17 07:40 36.5 93 18 164/89 (114) 93 3.0 10/24/17 04:00 92 Nasal Cannula 3.0 10/24/17 03:40 36.6 95 20 158/72 (100) 92 Nasal Cannula 3.5 Lab Results (24Hrs) Laboratory Tests (24 Hours) Test 10/23/17 23:54 Lactic Acid Level 1.8 mmol/L (0.4-2.0) White Blood Count 12.30 K/uL (4.8-10.8) H Red Blood Count 4.77 M/uL (4.7-6.1) Hemoglobin 14.5 g/dL (14.0-18.0) Hematocrit 42.6 % (42-52) Mean Corpuscular Volume 89.3 fL (80-100) Mean Corpuscular Hemoglobin 30.4 pg (25-34) Mean Corpuscular Hemoglobin Concent 34.0 g/dl (32-36) Platelet Count 376 K/uL (130-400) Mean Platelet Volume 10.0 fL (7.4-10.4) Neutrophils (%) (Auto) 92.9 % Lymphocytes (%) (Auto) 4.7 % Monocytes (%) (Auto) 1.0 % Eosinophils (%) (Auto) 0.0 % Basophils (%) (Auto) 0.1 % Neutrophils # (Auto) 11.43 K/uL (1.4-6.5) H Lymphocytes # (Auto) 0.58 K/uL (1.2-3.4) L Monocytes # (Auto) 0.12 K/uL (0.11-0.59) Eosinophils # (Auto) 0.00 K/uL (0-0.5) Basophils # (Auto) 0.01 K/uL (0-0.2) Micro Results Date/Time Source Procedure Growth Status 10/24/17 11:28 Nasal MRSA DNA Surveillance Screen - Final Specimen Negative for MRSA by DNA Probe Complete 10/24/17 12:15 Pleural Fluid (Thoracentesis) Right Acid Fast Stain Pending Received 10/24/17 12:15 Pleural Fluid (Thoracentesis) Right Mycobacterial Culture Pending Received 10/24/17 12:15 Pleural Fluid (Thoracentesis) Right Gram Stain - Final Resulted 10/24/17 12:15 Pleural Fluid (Thoracentesis) Right Bacterial Culture Pending Resulted Risk Factors for Resistance * Antimicrobial use within the last 90 days Levaquin [unknown dose] started at [facility] as out-patient therapy for pneumonia Assessment & Plan Assessment 77 year old male * Direct transfer from [facility] * failed out-patient Levaquin therapy (started 10/20/17) * smoker * h/o COPD * h/o diabetes and CHF Plan Pharmacy has been consulted for treatment of empiric antimicrobial therapy r/o pneumonia Vancomycin IV * Loading dose: 2000 mg (23 mg/kg) * Maintenance dose: 1000 mg IV (11 mg/kg) every 12 hours * Goal trough level for empiric therapy r/o pneumonia : 15 to 20 mcg/mL * Trough/Random levels will be ordered if therapy is to continue beyond empiric window of 48 hours Piperacillin/tazobactam * 3.375 g IV extended infusion every 8 hours for CrCl greater than 20 mL/min Pharmacy will continue to follow and will adjust dose/frequency as necessary. Thank you.
--- NOTE | 2017-10-24 15:39 | Pulmonary Consultation ---
History General Date of Service: Oct 24, 2017. Stated Complaint: Pneumonia, Copd HPI The patient is a 77 year old male who presents to [facility] with complaints of Pneumonia, Copd. The patient's primary care provider is No Doctor, Assigned. CC: Large mediastinal and perihilar mass with associated pleural effusion 77-year-old male with a long history of smoking and a previous mass seen on CXR per the patient which she had decided not to further workup at that time. The patient initially presented to [facility] [address] for worsening shortness of breath. Patient was started on Levaquin and discharged home. Earlier on the day of his admission the patient presented to [facility] [address] for worsening shortness of breath and increased work of breathing. Is also noted now cough for at least last month, increasing work of breathing is some mild sweats and some pleuritic-type chest pain. The patient has a long history of smoking at least 2 packs per day as currently oxygen dependent on 2 liters. After further workup the patient was transferred to [facility] for higher level of care. At the time of my interview the patient still noted increased work of breathing some mild shortness of breath but did not have any active pleurisy or chest pain. He also denied any active sputum production but intermittent dry cough. Echocardiogram 10/24/2017 LV: 60-65%, mild concentric LVH, diastolic dysfunction RV: TAPSE >1.5cm Atria: Bilaterally mildly dilated Valves: Grossly within normal limits Serum studies WBC: 12.3 (neutro# >11.43) PLT: 376K AB.43/43/70/28 on 3 liters oxygen support INR: 1.0 PTT: 10.7 Na: 131 AST: 52 Alb: 2.3 Pro: 6.9 Beta-Hydroxybutyric Acid: >>8.82 Pleural effusion pH: 7.40 WBC: 3349 (Mifflin: 97%) LDH: 220 Sosa: 14 Pro: 3.2 Glucose: 139 PmHx: 1. COPD 2. Diabetes 3. Hypertension 4. Congestive heart failure 5. Coronary artery disease the PsHx: 1. 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) ENT: reports: no symptoms Cardiovascular: reports: as stated in HPI Respiratory: reports: as stated in HPI Gastrointestinal: reports: no symptoms Genitourinary - Male: reports: no symptoms Musculoskeletal: reports: myalgias Integumentary: reports: no symptoms Neurologic: reports: no symptoms Psychiatric: reports: no symptoms Endocrine: no symptoms Hematologic / Lymphatic: no symptoms Allergic / Immunologic: no symptoms Past Medical History Past Medical History: Please refer to HPI Past Surgical History: Please refer to HPI Family History Please refer to HPI Social History Please refer to HPI Hx Tobacco Use In Past Year?: Yes Smoking Status: Former Smoker (2 packs per day. Pt states he quit 1 month ago.) Allergies Coded Allergies: Cortisone (Verified Allergy, Unknown, unknown, 10/23/17) Current Medications Reported Home Medications Medications Dose Route/Sig Max Daily Dose Days Date Category Ventolin (Albuterol Sulfate) 2 Mg/5 Ml Syrp 2 NEB QID PRN 10/23/17 Reported Januvia (Sitagliptin Phosphate) 100 Mg Tab 100 Mg PO DAILY 10/23/17 Reported Imdur Ext Rel (Isosorbide Mononitrate) 30 Mg Ertab 1 Tab PO DAILY 30 10/23/17 Reported Flomax (Tamsulosin Hcl) 0.4 Mg Cap 0.4 Mg PO DAILY 10/23/17 Reported Duoneb (Ipratropium-Albuterol) 3 Ml Nebu 1 Treatment INH Q4H PRN 10/23/17 Reported Dulera 200/5 Mcg (Mometasone Furoate-Formoterol) 1 Aer Aer 1 Aer INH BID 10/23/17 Reported Cozaar (Losartan Potassium) 25 Mg Tab 1 Tab PO DAILY 30 10/23/17 Reported Avodart (Dutasteride) 0.5 Mg Cap 0.5 Mg PO DAILY 10/23/17 Reported Ultram (Tramadol HCl) 50 Mg Tab 50 Mg PO Q6H PRN 10/23/17 Reported Tricor (Fenofibrate) 145 Mg Tab 1 Tab PO DAILY 30 10/23/17 Reported Toprol Xl (Metoprolol Succinate) 25 Mg Tabcr 1 Tab PO DAILY 30 10/23/17 Reported Sinequan (Doxepin HCl) 10 Mg Cap 3 Mg PO 10/23/17 Reported Protonix (Pantoprazole) 40 Mg Tab 1 Tab PO DAILY 30 10/23/17 Reported Nitrostat (Nitroglycerin) 0.4 Mg Tab 0.4 Mg UT PRN PRN 10/23/17 Reported Mobic (Meloxicam) 7.5 Mg Tab 15 Mg PO DAILY 10/23/17 Reported Lexapro (Escitalopram Oxalate) 20 Mg Tab 20 Mg PO DAILY 10/23/17 Reported Levaquin (Levofloxacin) 500 Mg Tab 500 Mg PO DAILY 7 10/23/17 Reported Micro-K Ext Rel (Potassium Chloride) 10 Meq Capcr 20 Meq PO DAILY 10/23/17 Reported Lasix (Furosemide) 40 Mg Tab 40 Mg PO DAILY PRN 10/23/17 Reported Physical Physical Exam Vital Signs: Date Time Temp Pulse Resp B/P (MAP) Pulse Ox O2 Delivery O2 Flow Rate FiO2 10/24/17 14:58 61 18 92 Nasal Cannula 3.0 10/24/17 12:00 Nasal Cannula 3.0 10/24/17 11:34 88 18 97 Nasal Cannula 3.0 10/24/17 11:20 36.7 79 22 162/79 (106) 95 3.0 10/24/17 08:00 93 Nasal Cannula 3.0 10/24/17 07:40 36.5 93 18 164/89 (114) 93 3.0 10/24/17 04:00 92 Nasal Cannula 3.0 10/24/17 03:40 36.6 95 20 158/72 (100) 92 Nasal Cannula 3.5 10/24/17 02:14 86 18 95 Nasal Cannula 3.0 10/24/17 00:01 91 Nasal Cannula 3.0 10/23/17 23:55 36.9 100 18 164/84 (110) 91 Nasal Cannula 3.0 10/23/17 21:20 Nasal Cannula 3.0 10/23/17 20:30 36.7 102 22 172/93 (119) 91 Nasal Cannula 3.0 General Appearance: mild distress Head: NORMOCEPHALIC, ATRAUMATIC Eyes: NO DISCHARGE, EOMI, SCLERAE NORMAL ENT: NORMAL EAR EXAM, NORMAL NASAL EXAM, NORMAL MOUTH EXAM, NORMAL THROAT EXAM , NORMAL DENTAL EXAM Neck: NO TENDERNESS, TRACHEA MIDLINE, NO STRIDOR, SUPPLE, NO THYROMEGALY Respiratory: other (Bilateral inspiratory expiratory rhonchi with decreased breath sounds and dullness to percussion on the right hemithorax: Ultrasonic evaluation should noted large right-sided pleural effusion with intraparenchymal changes) Cardiovasular: other (Tachycardic distant heart sounds unable to auscultate for murmurs rubs or gallops) Abdomen: NON TENDER, NORMAL BOWEL SOUNDS, NO REBOUND, NO MASSES, NO GUARDING Genitourinary - Male: EXTERNAL GENITALIA NORMAL Back: NORMAL INSPECTION, NO MIDLINE TENDERNESS, NO CVA TENDERNESS Upper Extremities: NO EDEMA, NO DEFORMITY, NORMAL ROM Lower Extremities: NO EDEMA, NO DEFORMITY, NORMAL ROM Pulses: carotid (R) (1+), carotid (L) (1+), dorsalis pedis (R) (1+), dorsalis pedis (L) (1+) Neuro: ALERT, ORIENTED x 3, NORMAL MOTOR EXAM, NORMAL SENSATION, NORMAL CEREBELLAR EXAM Reflexes: biceps (R) (2+), bicpes (L) (2+), patellar (R) (1+), patellar (L) (1+ ) Babinski Testing: right (downgoing), left (downgoing) Psychiatric: NORMAL AFFECT, NO SUICIDAL IDEATION, CONTRACTS FOR SAFETY Diagnostics Labs Results Past 24 Hours Test 10/23/17 23:54 10/24/17 02:32 10/24/17 04:19 10/24/17 06:36 Range/Units White Blood Count 12.30 4.8-10.8 K/uL Red Blood Count 4.77 4.7-6.1 M/uL Hemoglobin 14.5 14.0-18.0 g/dL Hematocrit 42.6 42-52 % Mean Corpuscular Volume 89.3 80-100 fL Mean Corpuscular Hemoglobin 30.4 25-34 pg Mean Corpuscular Hemoglobin Concent 34.0 32-36 g/dl Platelet Count 376 130-400 K/uL Mean Platelet Volume 10.0 7.4-10.4 fL Neutrophils (%) (Auto) 92.9 % Lymphocytes (%) (Auto) 4.7 % Monocytes (%) (Auto) 1.0 % Eosinophils (%) (Auto) 0.0 % Basophils (%) (Auto) 0.1 % Neutrophils # (Auto) 11.43 1.4-6.5 K/uL Lymphocytes # (Auto) 0.58 1.2-3.4 K/uL Monocytes # (Auto) 0.12 0.11-0.59 K/uL Eosinophils # (Auto) 0.00 0-0.5 K/uL Basophils # (Auto) 0.01 0-0.2 K/uL RDW Standard Deviation 46.6 36.4-46.3 fL RDW Coefficient of Variation 14.2 11.5-14.5 % Immature Granulocyte % (Auto) 1.3 % Immature Granulocyte # (Auto) 0.16 0.00-0.02 K/uL Prothrombin Time 10.7 9.0-12.0 SECONDS Prothromb Time International Ratio 1.0 0.9-1.1 Sodium Level 131 136-145 mmol/L Potassium Level 4.6 3.5-5.1 mmol/L Chloride Level 94 98-107 mmol/L Carbon Dioxide Level 30 21-32 mmol/L Anion Gap 7.0 3-11 mmol/L Blood Urea Nitrogen 13 7-18 mg/dl Creatinine 0.98 0.60-1.40 mg/dl Est Creatinine Clear Calc Drug Dose 69.6 ml/min Estimated GFR () 85.8 Estimated GFR (Non- 74.1 BUN/Creatinine Ratio 12.8 10-20 Random Glucose 354 70-99 mg/dl Estimated Average Glucose 289 mg/dl Hemoglobin A1c 11.7 4.5-5.6 % Lactic Acid Level 1.8 0.4-2.0 mmol/L Calcium Level 9.2 8.5-10.1 mg/dl Total Bilirubin 0.3 0.2-1 mg/dl Aspartate Amino Transf (AST/SGOT) 52 15-37 U/L Alanine Aminotransferase (ALT/SGPT) 32 12-78 U/L Alkaline Phosphatase 112 45-117 U/L Troponin I < 0.015 0-0.045 ng/ml Total Protein 6.9 6.4-8.2 gm/dl Albumin 2.3 3.4-5.0 gm/dl Globulin 4.6 2.5-4.0 gm/dl Albumin/Globulin Ratio 0.5 0.9-2 Beta-Hydroxybutyric Acid 8.82 0.2-2.81 mg/dL Bedside Glucose 278 270 221 70-99 mg/dl Test 10/24/17 11:02 10/24/17 11:51 10/24/17 12:15 Range/Units Bedside Glucose 75 70-99 mg/dl Arterial Blood pH 7.43 7.35-7.45 Arterial Blood Partial Pressure CO2 43 35-46 mmHg Arterial Blood Partial Pressure O2 70 80-95 mm/Hg Arterial Blood HCO3 28 19-24 mmol/L Arterial Blood Oxygen Saturation 93.1 90-95 % Arterial Blood Base Excess 3.0 -9-1.8 mEq/L Arterial Blood Gas Delivery 3L Reid Test POS POS Pleural Fluid Source RIGHT LUNG Pleural Fluid Color YELLOW Pleural Fluid Appearance HAZY Pleural Fluid WBC 3349 /uL Pleural Fluid RBC 4000 /uL Pleural Fluid pH 7.40 7.3-7.4 Pleural Fluid Polynuclear WBCs % 2.8 % Pleural Fluid Mononuclear WBCs % 97.2 % Pleural Fluid Total Protein 3.2 g/dl Pleural Fluid LDH 220 IU Pleural Fluid Glucose 139 mg/dl Pleural Fluid Amylase 14 U/L Microbiology Results 10/24/17 MRSA DNA Surveillance Screen - Final, Complete Specimen Negative for MRSA by DNA Probe 10/24/17 Acid Fast Stain, Received Pending 10/24/17 Mycobacterial Culture, Received Pending 10/24/17 Gram Stain - Final, Resulted 10/24/17 Bacterial Culture, Resulted Pending Diagnostic Radiology CT thorax 1. Large right ill-defined right hilar mass consistent with a primary bronchogenic malignancy. This results in obstruction of the bronchus intermedius with complete collapse of the right middle and lower lobes. Bronchoscopy is recommended for further evaluation. 2. There is right supraclavicular, mediastinal, bilateral hilar, and upper abdominal lymphadenopathy consistent with metastatic disease. 3. Multiple hypodense lesions within the liver also consistent with metastatic disease. 4. A 7 mm irregular nodule within the left upper lobe. This may represent metastatic disease. 5. Consolidative and nodular densities within the right upper lobe which may represent a postobstructive pneumonitis. However, extension of the right hilar malignancy cannot be excluded. 6. Small to moderate right pleural effusion. EKG Sinus rhythm with first-degree AV block Impression Assessment and Plan 77-year-old male with large mediastinal hilar mass, pleural effusion associated dyspnea: 1. Mediastinal-Hilar Mass/Pleural Effusion: The most noninvasive way to initially workup this patient is to evaluate the patient's pleural effusion. He did agree to undergo thoracentesis please refer to the notes. The chemical analysis at this time does show transudative property with an elevated LDH level and monocytic/lymphocytic predominant cell type. Subtle pathology is currently pending. This time I would like to wait for the cytologic report. I will also speak to the patient about moving forward with bronchoscopic evaluation in the a.m. and trans carinal biopsy if necessary verses evaluation of the airway to determine if stent placement is necessary. Thank you for this consultation
[2017-10-24] MEDS: [UNRECOGNIZED DRUG - OTHER] SCH (16:00)
[2017-10-24] MEDS: AVODART~ORDER AWAITING ACTION SCH ×2 (16:00)
--- NOTE | 2017-10-24 17:16 | Medical Student: [facility] ---
Med Student Progress Note Date of Service Oct 24, 2017. Subjective Pt evaluation today including: conversation w/ patient, physical exam, chart review, lab review, review of studies Pt is a 77 yo M who presented to [facility] with worsening SOB and chest pain. At [facility], CXR showed R pleural effusion and R basilar airspace ( suspected pneumonia) and he was subsequently transferred to [facility] for "diagnostic imaging" and "specialty care" purposes. Pt has had SOB since Sunday and received Levaquin to take as an outpatient but this did not improve the SOB. Pt had bronchoscopy performed on this morning with drainage of 1500 cc of fluid from the pleural effusion sent off for analysis. Pt reports feeling much better s/p R thoracentesis and is able to breathe with more ease now. Besides some breathing problems, he otherwise has no acute complaints. Review of Systems Eyes: + problem reported (patient is legally blind), No worsening of vision ENT: + problem reported (patient is hard of hearing) Respiratory: + cough, + sputum (clear), + wheezing, + shortness of breath, + dyspnea on exertion Cardiac: + orthopnea, + PND, + edema Abdomen: No pain, No nausea, No vomiting Musculoskeletal: No joint pain, No muscle pain Male : No dysuria Neurologic: No memory loss Psychiatric: No depression symptoms Heme: No abnormal bleeding/bruising Endo: No fatigue Skin: No rash, No itch Objective Vital Signs Date Time Temp Pulse Resp B/P (MAP) Pulse Ox O2 Delivery O2 Flow Rate FiO2 10/24/17 14:58 61 18 92 Nasal Cannula 3.0 10/24/17 12:00 Nasal Cannula 3.0 10/24/17 11:34 88 18 97 Nasal Cannula 3.0 10/24/17 11:20 36.7 79 22 162/79 (106) 95 3.0 10/24/17 08:00 93 Nasal Cannula 3.0 10/24/17 07:40 36.5 93 18 164/89 (114) 93 3.0 10/24/17 04:00 92 Nasal Cannula 3.0 10/24/17 03:40 36.6 95 20 158/72 (100) 92 Nasal Cannula 3.5 10/24/17 02:14 86 18 95 Nasal Cannula 3.0 10/24/17 00:01 91 Nasal Cannula 3.0 10/23/17 23:55 36.9 100 18 164/84 (110) 91 Nasal Cannula 3.0 10/23/17 21:20 Nasal Cannula 3.0 10/23/17 20:30 36.7 102 22 172/93 (119) 91 Nasal Cannula 3.0 Physical Exam General Appearance: WD/WN, no apparent distress Eyes: bilateral eyes normal inspection ENT: + pertinent finding (hard of hearing) Neck: supple, no adenopathy, no JVD Respiratory/Chest: + decreased breath sounds (moreso on the right side than the left side), + crackles (diffuse) Cardiovascular: regular rate, rhythm, no gallop, no JVD, no murmur Abdomen: normal bowel sounds, non tender, soft Extremities: normal range of motion, non-tender, + pedal edema (+2 bilaterally) Neurologic/Psychiatric: alert, normal mood/affect, oriented x 3 Skin: normal color, warm/dry, no rash Laboratory Results Last 24 Hours Test 10/23/17 23:54 10/24/17 02:32 10/24/17 04:19 10/24/17 06:36 White Blood Count 12.30 K/uL Red Blood Count 4.77 M/uL Hemoglobin 14.5 g/dL Hematocrit 42.6 % Mean Corpuscular Volume 89.3 fL Mean Corpuscular Hemoglobin 30.4 pg Mean Corpuscular Hemoglobin Concent 34.0 g/dl Platelet Count 376 K/uL Mean Platelet Volume 10.0 fL Neutrophils (%) (Auto) 92.9 % Lymphocytes (%) (Auto) 4.7 % Monocytes (%) (Auto) 1.0 % Eosinophils (%) (Auto) 0.0 % Basophils (%) (Auto) 0.1 % Neutrophils # (Auto) 11.43 K/uL Lymphocytes # (Auto) 0.58 K/uL Monocytes # (Auto) 0.12 K/uL Eosinophils # (Auto) 0.00 K/uL Basophils # (Auto) 0.01 K/uL RDW Standard Deviation 46.6 fL RDW Coefficient of Variation 14.2 % Immature Granulocyte % (Auto) 1.3 % Immature Granulocyte # (Auto) 0.16 K/uL Prothrombin Time 10.7 SECONDS Prothromb Time International Ratio 1.0 Sodium Level 131 mmol/L Potassium Level 4.6 mmol/L Chloride Level 94 mmol/L Carbon Dioxide Level 30 mmol/L Anion Gap 7.0 mmol/L Blood Urea Nitrogen 13 mg/dl Creatinine 0.98 mg/dl Est Creatinine Clear Calc Drug Dose 69.6 ml/min Estimated GFR () 85.8 Estimated GFR (Non- 74.1 BUN/Creatinine Ratio 12.8 Random Glucose 354 mg/dl Estimated Average Glucose 289 mg/dl Hemoglobin A1c 11.7 % Lactic Acid Level 1.8 mmol/L Calcium Level 9.2 mg/dl Total Bilirubin 0.3 mg/dl Aspartate Amino Transf (AST/SGOT) 52 U/L Alanine Aminotransferase (ALT/SGPT) 32 U/L Alkaline Phosphatase 112 U/L Troponin I < 0.015 ng/ml Total Protein 6.9 gm/dl Albumin 2.3 gm/dl Globulin 4.6 gm/dl Albumin/Globulin Ratio 0.5 Beta-Hydroxybutyric Acid 8.82 mg/dL Bedside Glucose 278 mg/dl 270 mg/dl 221 mg/dl Test 10/24/17 11:02 10/24/17 11:51 10/24/17 12:15 Bedside Glucose 75 mg/dl Arterial Blood pH 7.43 Arterial Blood Partial Pressure CO2 43 mmHg Arterial Blood Partial Pressure O2 70 mm/Hg Arterial Blood HCO3 28 mmol/L Arterial Blood Oxygen Saturation 93.1 % Arterial Blood Base Excess 3.0 mEq/L Arterial Blood Gas Delivery 3L Reid Test POS Pleural Fluid Source RIGHT LUNG Pleural Fluid Color YELLOW Pleural Fluid Appearance HAZY Pleural Fluid WBC 3349 /uL Pleural Fluid RBC 4000 /uL Pleural Fluid pH 7.40 Pleural Fluid Polynuclear WBCs % 2.8 % Pleural Fluid Mononuclear WBCs % 97.2 % Pleural Fluid Total Protein 3.2 g/dl Pleural Fluid LDH 220 IU Pleural Fluid Glucose 139 mg/dl Pleural Fluid Amylase 14 U/L Medications Current Inpatient Medications Medications (Trade) Dose Ordered Sig/Ramin Route Start Time Stop Time Status Last Admin Dose Admin Escitalopram Oxalate (Lexapro Tab) 20 mg DAILY PO 10/24/17 09:00 11/23/17 08:59 10/24/17 08:34 20 MG Fenofibrate (Tricor Tab) 145 mg DAILY PO 10/24/17 09:00 11/23/17 08:59 10/24/17 08:34 145 MG Isosorbide Mononitrate (Imdur Ext Rel Tab) 30 mg DAILY PO 10/24/17 09:00 11/23/17 08:59 10/24/17 08:34 30 MG Losartan Potassium (coZAAR TAB) 25 mg DAILY PO 10/24/17 09:00 11/23/17 08:59 10/24/17 08:35 25 MG Metoprolol Succinate (Toprol Xl Tab) 25 mg DAILY PO 10/24/17 09:00 11/23/17 08:59 10/24/17 08:34 25 MG Nitroglycerin (Nitrostat Tab) 0.4 mg PRN PRN UT 10/23/17 23:15 11/22/17 23:14 Pantoprazole Sodium (Protonix Tab) 40 mg DAILY PO 10/24/17 09:00 11/23/17 08:59 10/24/17 08:35 40 MG Potassium Chloride (Klor-Con M10) 20 meq DAILY PO 10/24/17 09:00 11/23/17 08:59 10/24/17 08:33 20 MEQ Tamsulosin HCl (Flomax Cap) 0.4 mg DAILY PO 10/24/17 09:00 11/23/17 08:59 10/24/17 08:34 0.4 MG Tramadol HCl (Ultram Tab) 50 mg Q6H PRN PO 10/23/17 23:15 11/22/17 23:14 Miscellaneous Information (Order Awaiting Action) 1 ea QS N/A 10/24/17 00:00 11/23/17 00:00 Miscellaneous Information (Order Awaiting Action) 1 ea QS N/A 10/24/17 08:00 11/23/17 07:59 Piperacillin Sod/ Tazobactam Sod 3.375 gm/Dextrose 115 ml @ 28.75 mls/ hr Q8H IV 10/24/17 04:00 10/26/17 03:59 10/24/17 13:41 28.75 MLS/HR Levofloxacin (Levaquin Tab) 750 mg DAILY PO 10/23/17 23:30 10/25/17 23:29 10/24/17 08:35 750 MG Albuterol/ Ipratropium (Duoneb) 3 ml QIDR INH 10/24/17 08:00 11/23/17 07:59 10/24/17 11:34 3 ML Acetaminophen (Tylenol Tab) 650 mg Q4H PRN PO 10/23/17 23:30 11/22/17 23:29 Magnesium Hydroxide (Milk Of Magnesia Susp) 30 ml Q12H PRN PO 10/23/17 23:30 11/22/17 23:29 10/24/17 11:39 30 ML Ondansetron HCl (Zofran Inj) 4 mg Q6H PRN IV 10/23/17 23:30 11/22/17 23:29 Nicotine (Nicoderm Cq 21MG Patch) 1 patch QAM TD 10/24/17 09:00 11/23/17 08:59 10/24/17 08:35 1 PATCH Miscellaneous (Remove Nicoderm Patch) 1 ea HS N/A 10/24/17 21:00 11/23/17 20:59 Budesonide (Pulmicort Respules 0.5MG/ 2ML Neb Soln) 0.5 mg BIDR INH 10/24/17 01:15 11/23/17 01:14 10/24/17 07:42 0.5 MG Insulin Aspart (novoLOG ASPART) SLIDING SCALE G... ACHS SC 10/24/17 07:00 11/23/17 06:59 10/24/17 08:40 8 UNITS Glucose (Glucose 40% Gel) 15-30 GRAMS 15 GRAMS... UD PRN PO 10/24/17 02:00 11/23/17 01:59 Glucose (Glucose Chew Tab) 4-8 Tablets 4 Tabl... UD PRN PO 10/24/17 02:00 11/23/17 01:59 Dextrose (Dextrose 50% 50ML Syringe) 25-50ML OF 50% DW IV FOR... UD PRN IV 10/24/17 02:00 11/23/17 01:59 Glucagon (Glucagon Inj) 1 mg UD PRN SQ 10/24/17 02:00 11/23/17 01:59 Albuterol/ Ipratropium (Duoneb) 3 ml Q2H PRN INH 10/24/17 02:30 11/23/17 02:29 Miscellaneous (Iv Fluids Completed) 1 ea PRN PRN N/A 10/24/17 03:00 10/24/18 02:59 Vancomycin HCl (Consult) 1 ea UD PRN N/A 10/24/17 08:30 10/26/17 23:59 Piperacillin Sod/ Tazobactam Sod (Consult) 1 ea UD PRN N/A 10/24/17 08:30 10/26/17 23:59 Vancomycin HCl 1000 mg/Sodium Chloride 270 ml @ 125 mls/hr Q12H IV 10/24/17 12:00 10/26/17 00:00 10/24/17 11:25 125 MLS/HR Insulin Glargine (Lantus Solostar Pen) 15 units BID SC 10/24/17 21:00 11/23/17 20:59 Assessment and Plan Assessment and Plan: Pt is a 77 yo M who presented to [facility] with worsening SOB and chest pain with subsequent transfer to [facility] for "diagnostic imaging" and "specialty care" purposes. He has an extensive smoking hx (~2PPD for 66 years). PMH notable for COPD, T2DM, and HTN. CXR finding notable for R pleural effusion and R airspace basilar opacity. Chest CT found an ill-defined R hilar mass and multiple hypodense lesions in the liver. Acute on chronic hypoxic respiratory failure - Collapse of the R middle and lower lobes 2/2 mass obstruction from the hilar mass which is consistent with a primary bronchogenic malignancy. Significant smoking hx. - Dr. Mock consulted: would like to schedule EBUS, NPO then Pleural effusion Right side - drained via thoracentesis 1500cc. Pathology pending. - Initial analysis shows transudative properties COPD - On 3L NC O2 at home - Duonebs - Pulmicort T2DM - HbA1c 11.2 - Lantus 15 units SQ BID plus sliding scale - Glucose check AC and HS Suspected Metastases to Liver - Found on CT - Pt had refused workup previously CHF / RI / CABG X 4 - Unknown whether diastolic or systolic - Outpatient notes requested - Continue fenofibrate, metoprolol, losartan, ISMN - ECHO ordered - Cardio consulted CAD - Not sure why no aspirin or statin - Outside notes requested HTN - Metoprolol and losartan Suspected pneumonia - Continue vanc, zosyn, and levoquin Depression - Continue doxepin and lexapro BPH - Tamsolusin Chronic pain - Tramadol Smoking Cessation - Nicotine patch 21mg q AM VTE Prophylaxis - SCDs Code - Full Disposition - Continue on tele
--- NOTE | 2017-10-24 17:43 | DIAGNOSTIC IMAGING REPORT ---
CT OF THE CHEST WITHOUT IV CONTRAST CLINICAL HISTORY: Previous CT with mass - now S/P thoracentesis COMPARISON STUDY: Chest CT October 23, 2017. CT DOSE: 483.75 mGycm TECHNIQUE: Axial images of the chest were obtained without IV contrast. Images were reviewed in the axial, sagittal, and coronal planes. IV contrast was not administered for this examination. A dose lowering technique was utilized adhering to the principles of ALARA. FINDINGS: A right pleural effusion has decreased in size since exam of October 22, 2017. A small to moderate residual right pleural effusion is noted. No pneumothorax is present There are median sternotomy wires and post surgical findings consistent with bypass grafting. There is moderate cardiomegaly and extensive coronary artery calcification. There is no pericardial effusion. 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 Several calcified and noncalcified pleural plaques are noted. A mildly enlarged right supraclavicular lymph node measures 1.8 x 1.3 cm. A right paratracheal lymph node measures 3.8 x 2.8 cm. A subcarinal lymph node measures approximately 4.2 x 7 cm. Abrupt cut off of the longus intermedius is noted due to a large infiltrative right hilar/infrahilar mass. Measurements of this mass are difficult to obtain given adjacent consolidated lung. The mass may measure approximately 8.9 x 7.8 cm. Diffuse nodular and lobular septal thickening within the right lung is noted. An irregular 1.4 cm left upper lobe nodular density is noted. There is moderate emphysema. No suspicious osseous lesion is present. Innumerable hypodense hepatic lesions are noted. Index lateral segment lesion measures 3 cm. There are several mildly enlarged upper abdominal lymph nodes. A left renal calculus is noted. IMPRESSION: 1. Large irregular right hilar/infrahilar mass with resultant occlusion of the bronchus intermedius and volume loss within the right middle and right lower lobes. The appearance is highly suggestive of bronchogenic carcinoma. 2. Interval decrease in size of a small to moderate right pleural effusion. No pneumothorax. 3. Extensive right supraclavicular, mediastinal, bilateral hilar and upper abdominal lymphadenopathy consistent with metastatic disease. 4. Numerous hypodense hepatic lesions consistent with metastatic disease. 5. 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 6. Moderate emphysema. 7. Nodular interlobular septal thickening within the right lung which favors lymphangitic carcinomatosis. Electronically signed by: Fabian Zavala M.D. 10/24/2017 5:42 PM Dictated Date/Time: 10/24/2017 5:13 PM
[2017-10-24] MEDS ORDERED: INSULIN GLARGINE SOLOSTAR 100 UNITS/ML 3 ML PEN SC SCH (21:00)
[2017-10-24] MEDS: ACETAMINOPHEN 325 MG TAB PO PRN (21:36)
[2017-10-25] VITALS (16 sets, daily range): BP systolic 113–185; BP diastolic 58–89; PULSE 71–97; TEMP 36.7–37.1; O2SAT 91–98
[2017-10-25] MEDS: VANCOMYCIN INJ 1,000 MG in SODIUM CHLORIDE 0.9% 250ML 250 ML IV SCH (00:44)
[2017-10-25] MEDS: PIPERACILL/TAZOBAC IV 3.375 GM in DEXTROSE 5% 100ML 100 ML IV SCH ×3 (04:20→19:21)
[2017-10-25] MEDS: DEXTROSE 50% 50 ML SYR IV PRN ×2 (06:54→10:17)
[2017-10-25] MEDS: INSULIN ASPART 100 UNITS/ML 3 ML PEN SC SCH ×4 (07:00→21:00)
[2017-10-25 07:33] LABS: BASO % 0.4 %; BASO ABS # 0.05 K/uL (0-0.2); EOS ABS # 0.13 K/uL (0-0.5); HEMATOCRIT 41.2 % (42-52); HEMOGLOBIN 13.5 g/dL (14.0-18.0); IG# 0.27 K/uL (0.00-0.02); LYMPH ABS # 1.37 K/uL (1.2-3.4); MEAN CORPUSCULAR HEMOGLOBIN 29.5 pg (25-34); MEAN CORPUSCULAR HGB CONC 32.8 g/dl (32-36); MEAN PLATELET VOLUME 9.8 fL (7.4-10.4); MONO % 9.2 %; MONO ABS # 1.25 K/uL (0.11-0.59); NEUT % 77.4 %; NEUT ABS # 10.59 K/uL (1.4-6.5); PLATELET COUNT 381 K/uL (130-400); RED CELL DISTRIBUTION WIDTH CV 14.7 % (11.5-14.5); RED CELL DISTRIBUTION WIDTH SD 47.7 fL (36.4-46.3); WHITE BLOOD COUNT 13.66 K/uL (4.8-10.8)
[2017-10-25 07:38] LABS: PTT PATIENT 27.3 SECONDS (21.0-31.0)
[2017-10-25] MEDS ORDERED: HydrALAZINE HCL 20 MG/ML VIAL IV. STA (07:46)
[2017-10-25] MEDS: BUDESONIDE 0.5 MG/2 ML VIAL (PULMICORT) INH SCH ×2 (07:56→20:05)
[2017-10-25] MEDS: ALBUT/IPRATROP 3MG/0.5MG NEB 3 ML VIAL INH SCH ×3 (07:56→20:00)
[2017-10-25] MEDS: [UNRECOGNIZED DRUG - OTHER] SCH ×3 (08:00→16:00)
[2017-10-25] MEDS: AVODART~ORDER AWAITING ACTION SCH ×3 (08:00→16:00)
[2017-10-25 08:10] LABS: CALCIUM 8.7 mg/dl (8.5-10.1); CREATININE 0.81 mg/dl (0.60-1.40); POTASSIUM 3.5 mmol/L (3.5-5.1)
[2017-10-25] MEDS: POTASSIUM CHLORIDE 10 MEQ TABCR PO SCH (08:27)
[2017-10-25] MEDS: TAMSULOSIN HCL 0.4 MG CAP PO SCH (08:27)
[2017-10-25] MEDS: ISOSORBIDE MONONITRATE 30 MG TABCR PO SCH (08:27)
[2017-10-25] MEDS: LEVOFLOXACIN 750 MG TAB PO SCH (08:28)
[2017-10-25] MEDS: LOSARTAN POTASSIUM 25 MG TAB PO SCH (08:28)
[2017-10-25] MEDS: ESCITALOPRAM OXALATE 20 MG TAB PO SCH (08:28)
[2017-10-25] MEDS: PANTOprazole SOD 40 MG TAB PO SCH (08:28)
[2017-10-25] MEDS: FENOFIBRATE 145 MG TAB PO SCH (08:29)
[2017-10-25] MEDS: METOPROLOL SUCC 25MG EXT REL TAB PO SCH (08:29)
[2017-10-25] MEDS: NICOTINE 21 MG/24 HR TDSY TD SCH (08:29)
[2017-10-25] MEDS ORDERED: NICOTINE 21 MG/24 HR TDSY TD SCH (09:00)
--- NOTE | 2017-10-25 09:30 | CARDIOLOGY PROGRESS NOTE ---
DATE: 10/25/2017 SUBJECTIVE: Mr. Noguera is resting comfortably in bed without complaints of chest pain or dyspnea. His family is at the bedside. OBJECTIVE: VITAL SIGNS: Blood pressure 144/58 with a regular pulse of 77. Respiratory rate is 20. The patient is afebrile at 36.8 degrees Celsius. Saturation 91% on 3 liters nasal cannula. NECK: Supple with full carotid upstrokes. No obvious bruits. Jugular venous pressure is flat at 90 degrees. There is no thyromegaly. CARDIOVASCULAR: Reveals a regular rhythm with normal S1 and S2. Heart sounds are distant. LUNGS: Note diffuse wheezes. ABDOMEN: Soft without bruits. EXTREMITIES: Reveal no edema. LABORATORY DATA: CBC notes a hemoglobin of 13.5, hematocrit 41.2, white count 13.6, platelet count 381,000. Electrolytes note a sodium of 138, potassium 3.5, chloride 101, bicarb 30, BUN 13, creatinine 0.8, glucose 103. IMPRESSION AND PLAN: 1. Coronary artery disease status post coronary artery bypass graft x4. Gives a history of chronic stable angina pectoris, however, suspect that this is not the case. He describes a sharp stabbing type sensation. In any event, we feel he is in acceptable risk to undergo surgical procedure realizing his likely malignancy. 2. Hypertension -- tolerating increased dose of metoprolol. 3. Chronic obstructive pulmonary disease. 4. Large right-sided pulmonary mass -- workup in progress.
[2017-10-25] MEDS ORDERED: LORAZEPAM 2 MG/ML 1 ML VIAL IV STA (10:06)
[2017-10-25] MEDS ORDERED: LORAZEPAM 2 MG/ML 1 ML VIAL ONE (10:11)
--- NOTE | 2017-10-25 10:42 | Pre Sedation Assessment ---
Pre Sedation Assessment General Date of Sedation: Oct 25, 2017. Vital Signs Past 12 Hours Date Time Temp Pulse Resp B/P (MAP) Pulse Ox O2 Delivery O2 Flow Rate FiO2 10/25/17 08:00 36.8 77 24 185/80 (115) 93 Nasal Cannula 3.0 10/25/17 08:00 83 18 91 Nasal Cannula 3.0 10/25/17 04:00 93 Nasal Cannula 3.0 10/25/17 03:52 36.8 72 17 153/73 (99) 93 Nasal Cannula 2.0 10/25/17 00:36 36.9 71 22 144/58 (86) 94 Nasal Cannula 10/25/17 00:01 93 Nasal Cannula 3.0 Review Cardiovascular: regular rate, rhythm, no edema, no gallop, + systolic murmur Lungs: + pertinent finding (decreased BS bilateral with R>L and rhonchi throughout) Pre-Sedation Airway Assessment Smoking Status: Former Smoker (2 packs per day. Pt states he quit 1 month ago.) Hx of Sleep Apnea: No Hx of difficult intubation: No Short Thick Neck: Yes Thyro-mental Distance: > 3 Finger Breadths Oral Cavity: WNL Mallampati Classification: Class II ASA Classification: Class IV NPO Status Date of Last Intake of Fluids: Oct 25, 2017 Time of Last Intake of Fluids: 0700 Date of Last Intake of Solids: Oct 24, 2017 Time of Last Intake of Solids: 2000 Notes The planned sedation has been discussed with the patient. Informed Consent was obtained. I have identified the patient, determined the appropriateness of sedation and have assessed the patient immediately prior to the procedure. All medicine(s) and interventions are by my order.
--- NOTE | 2017-10-25 10:51 | Family Medicine Progress Note ---
Progress Note Date of Service Oct 25, 2017. Subjective Pt evaluation today including: conversation w/ patient, physical exam, chart review, lab review, review of studies, conversation w/ territory sales consultant (Daria), review of inpatient medication list Patient reports breathing improved this morning. Not coughing anything up but feels slightly congested. Denies any fever, chills, chest pain, abdominal pain, palpitations, leg swelling, orthopnea or PND. All Other Systems: Reviewed and Negative Medications Current Inpatient Medications Medications (Trade) Dose Ordered Sig/Ramin Route Start Time Stop Time Status Last Admin Dose Admin Escitalopram Oxalate (Lexapro Tab) 20 mg DAILY PO 10/24/17 09:00 11/23/17 08:59 10/25/17 08:28 20 MG Fenofibrate (Tricor Tab) 145 mg DAILY PO 10/24/17 09:00 11/23/17 08:59 10/25/17 08:29 145 MG Isosorbide Mononitrate (Imdur Ext Rel Tab) 30 mg DAILY PO 10/24/17 09:00 11/23/17 08:59 10/25/17 08:27 30 MG Losartan Potassium (coZAAR TAB) 25 mg DAILY PO 10/24/17 09:00 11/23/17 08:59 10/25/17 08:28 25 MG Metoprolol Succinate (Toprol Xl Tab) 25 mg DAILY PO 10/24/17 09:00 11/23/17 08:59 10/25/17 08:29 25 MG Nitroglycerin (Nitrostat Tab) 0.4 mg PRN PRN UT 10/23/17 23:15 11/22/17 23:14 Pantoprazole Sodium (Protonix Tab) 40 mg DAILY PO 10/24/17 09:00 11/23/17 08:59 10/25/17 08:28 40 MG Potassium Chloride (Klor-Con M10) 20 meq DAILY PO 10/24/17 09:00 11/23/17 08:59 10/25/17 08:27 20 MEQ Tamsulosin HCl (Flomax Cap) 0.4 mg DAILY PO 10/24/17 09:00 11/23/17 08:59 10/25/17 08:27 0.4 MG Tramadol HCl (Ultram Tab) 50 mg Q6H PRN PO 1/9/18 23:15 11/22/17 23:14 Miscellaneous Information (Order Awaiting Action) 1 ea QS N/A 10/24/17 00:00 11/23/17 00:00 Miscellaneous Information (Order Awaiting Action) 1 ea QS N/A 10/24/17 08:00 11/23/17 07:59 Piperacillin Sod/ Tazobactam Sod 3.375 gm/Dextrose 115 ml @ 28.75 mls/ hr Q8H IV 10/24/17 04:00 10/26/17 03:59 10/25/17 04:20 28.75 MLS/HR Levofloxacin (Levaquin Tab) 750 mg DAILY PO 10/23/17 23:30 10/25/17 23:29 10/25/17 08:28 750 MG Albuterol/ Ipratropium (Duoneb) 3 ml QIDR INH 10/24/17 08:00 11/23/17 07:59 10/25/17 07:56 3 ML Acetaminophen (Tylenol Tab) 650 mg Q4H PRN PO 10/23/17 23:30 11/22/17 23:29 10/24/17 21:36 650 MG Magnesium Hydroxide (Milk Of Magnesia Susp) 30 ml Q12H PRN PO 10/23/17 23:30 11/22/17 23:29 10/24/17 11:39 30 ML Ondansetron HCl (Zofran Inj) 4 mg Q6H PRN IV 10/23/17 23:30 11/22/17 23:29 10/25/17 10:16 4 MG Nicotine (Nicoderm Cq 21MG Patch) 1 patch QAM TD 10/24/17 09:00 11/23/17 08:59 10/25/17 08:29 1 PATCH Miscellaneous (Remove Nicoderm Patch) 1 ea HS N/A 10/24/17 21:00 11/23/17 20:59 10/24/17 20:19 1 EA Budesonide (Pulmicort Respules 0.5MG/ 2ML Neb Soln) 0.5 mg BIDR INH 10/24/17 01:15 11/23/17 01:14 10/25/17 07:56 0.5 MG Insulin Aspart (novoLOG ASPART) SLIDING SCALE G... ACHS SC 10/24/17 07:00 11/23/17 06:59 10/24/17 20:21 1 UNITS Glucose (Glucose 40% Gel) 15-30 GRAMS 15 GRAMS... UD PRN PO 10/24/17 02:00 11/23/17 01:59 Glucose (Glucose Chew Tab) 4-8 Tablets 4 Tabl... UD PRN PO 10/24/17 02:00 11/23/17 01:59 Dextrose (Dextrose 50% 50ML Syringe) 25-50ML OF 50% DW IV FOR... UD PRN IV 10/24/17 02:00 11/23/17 01:59 10/25/17 10:17 50 ML Glucagon (Glucagon Inj) 1 mg UD PRN SQ 10/24/17 02:00 11/23/17 01:59 Albuterol/ Ipratropium (Duoneb) 3 ml Q2H PRN INH 10/24/17 02:30 11/23/17 02:29 Miscellaneous (Iv Fluids Completed) 1 ea PRN PRN N/A 10/24/17 03:00 10/24/18 02:59 Vancomycin HCl (Consult) 1 ea UD PRN N/A 10/24/17 08:30 10/26/17 23:59 Piperacillin Sod/ Tazobactam Sod (Consult) 1 ea UD PRN N/A 10/24/17 08:30 10/26/17 23:59 Vancomycin HCl 1000 mg/Sodium Chloride 270 ml @ 125 mls/hr Q12H IV 10/24/17 12:00 10/26/17 00:00 10/25/17 00:44 125 MLS/HR Insulin Glargine (Lantus Solostar Pen) 15 units BID SC 10/24/17 21:00 11/23/17 20:59 Future Hold 10/24/17 20:22 15 UNITS Objective Vital Signs Date Time Temp Pulse Resp B/P (MAP) Pulse Ox O2 Delivery O2 Flow Rate FiO2 10/25/17 08:00 36.8 77 24 185/80 (115) 93 Nasal Cannula 3.0 10/25/17 08:00 83 18 91 Nasal Cannula 3.0 10/25/17 04:00 93 Nasal Cannula 3.0 10/25/17 03:52 36.8 72 17 153/73 (99) 93 Nasal Cannula 2.0 10/25/17 00:36 36.9 71 22 144/58 (86) 94 Nasal Cannula 10/25/17 00:01 93 Nasal Cannula 3.0 10/24/17 20:00 Nasal Cannula 3.0 10/24/17 19:35 79 18 93 Nasal Cannula 3.0 10/24/17 19:30 36.7 80 20 169/80 (109) 90 Nasal Cannula 3.0 10/24/17 16:37 36.7 76 21 147/80 (102) 93 Nasal Cannula 3.0 10/24/17 16:00 Nasal Cannula 3.0 10/24/17 14:58 61 18 92 Nasal Cannula 3.0 10/24/17 12:00 Nasal Cannula 3.0 10/24/17 11:34 88 18 97 Nasal Cannula 3.0 10/24/17 11:20 36.7 79 22 162/79 (106) 95 3.0 Physical Exam General Appearance: no apparent distress Eyes: sclerae normal ENT: pharynx normal Neck: no JVD, trachea midline Respiratory/Chest: chest non-tender, no respiratory distress, no accessory muscle use, + wheezing (throughout) Cardiovascular: regular rate, rhythm (quiet), no edema, no JVD, no murmur Abdomen: normal bowel sounds, non tender, soft Extremities: no pedal edema, no calf tenderness, normal capillary refill Neurologic/Psychiatric: interactive digital media specialist II-XII nml as tested (no facial droop), no motor/ sensory deficits (grossly morving all 4 limbs), alert, oriented x 3 Skin: normal color, warm/dry, no rash Lymphatic: + pertinent finding (supraclavicular lymphadenopathy b/l, non tender ) Laboratory Results 10/25/17 06:56 Red Blood Count 4.58, Mean Corpuscular Volume 90.0, Mean Corpuscular Hemoglobin 29.5, Mean Corpuscular Hemoglobin Concent 32.8, Mean Platelet Volume 9.8, Neutrophils (%) (Auto) 77.4, Lymphocytes (%) (Auto) 10.0, Monocytes (%) (Auto) 9.2, Eosinophils (%) (Auto) 1.0, Basophils (%) (Auto) 0.4, Neutrophils # (Auto) 10.59, Lymphocytes # (Auto) 1.37, Monocytes # (Auto) 1.25, Eosinophils # (Auto) 0.13, Basophils # (Auto) 0.05 10/25/17 06:56 Test 10/24/17 11:51 10/24/17 12:15 10/25/17 06:56 10/25/17 07:12 Arterial Blood pH 7.43 (7.35-7.45) Arterial Blood Partial Pressure CO2 43 mmHg (35-46) Arterial Blood Partial Pressure O2 70 mm/Hg (80-95) Arterial Blood HCO3 28 mmol/L (19-24) Arterial Blood Oxygen Saturation 93.1 % (90-95) Arterial Blood Base Excess 3.0 mEq/L (-9-1.8) Arterial Blood Gas Delivery 3L Reid Test POS (POS) Pleural Fluid Source RIGHT LUNG Pleural Fluid Color YELLOW Pleural Fluid Appearance HAZY Pleural Fluid WBC 3349 /uL Pleural Fluid RBC 4000 /uL Pleural Fluid pH 7.40 (7.3-7.4) Pleural Fluid Polynuclear WBCs % 2.8 % Pleural Fluid Mononuclear WBCs % 97.2 % Pleural Fluid Total Protein 3.2 g/dl Pleural Fluid LDH 220 IU Pleural Fluid Glucose 139 mg/dl Pleural Fluid Amylase 14 U/L White Blood Count 13.66 K/uL (4.8-10.8) Red Blood Count 4.58 M/uL (4.7-6.1) Hemoglobin 13.5 g/dL (14.0-18.0) Hematocrit 41.2 % (42-52) Mean Corpuscular Volume 90.0 fL (80-100) Mean Corpuscular Hemoglobin 29.5 pg (25-34) Mean Corpuscular Hemoglobin Concent 32.8 g/dl (32-36) Platelet Count 381 K/uL (130-400) Mean Platelet Volume 9.8 fL (7.4-10.4) Neutrophils (%) (Auto) 77.4 % Lymphocytes (%) (Auto) 10.0 % Monocytes (%) (Auto) 9.2 % Eosinophils (%) (Auto) 1.0 % Basophils (%) (Auto) 0.4 % Neutrophils # (Auto) 10.59 K/uL (1.4-6.5) Lymphocytes # (Auto) 1.37 K/uL (1.2-3.4) Monocytes # (Auto) 1.25 K/uL (0.11-0.59) Eosinophils # (Auto) 0.13 K/uL (0-0.5) Basophils # (Auto) 0.05 K/uL (0-0.2) RDW Standard Deviation 47.7 fL (36.4-46.3) RDW Coefficient of Variation 14.7 % (11.5-14.5) Immature Granulocyte % (Auto) 2.0 % Immature Granulocyte # (Auto) 0.27 K/uL (0.00-0.02) Activated Partial Thromboplast Time 27.3 SECONDS (21.0-31.0) Partial Thromboplastin Ratio 1.1 Anion Gap 7.0 mmol/L (3-11) Est Creatinine Clear Calc Drug Dose 77.8 ml/min Estimated GFR () 99.4 Estimated GFR (Non- 85.7 BUN/Creatinine Ratio 15.6 (10-20) Calcium Level 8.7 mg/dl (8.5-10.1) Bedside Glucose 103 mg/dl (70-99) Date/Time Source Procedure Growth Status 10/24/17 11:28 Nasal MRSA DNA Surveillance Screen - Final Specimen Negative for MRSA by DNA Probe Complete Assessment and Plan 77-year-old male with a past medical history of Severe COPD, Type 2 diabetes, hypertension, congestive heart failure, and CAD with CABG x 4, that presents as a transfer from [facility] for worsening shortness of breath. Acute on chronic Hypoxic Respiratory Failure secondary to right middle and lower lobe collapse from mass obstruction, possible pneumonia and COPD - Since he has minimal hypercapnia on ABG will aim to maintain O2 sats > 94% Suspected lung cancer with suspected malignant pleural effusion Right hilar mass obstructing bronchus intermedius with collapse of right middle and lower lobes - Discussed with Dr Huff and plan is for bronchoscopy later today. Right pleural effusions s/p thoracocentesis 10/24/17 - Many mononuclear WBC and RBC - cytology pending Suspected metastatic disease - multiple hypodense lesions seen throughout the liver - Son stated that during previous hip surgery a tumor was discovered although at that time the patient refused further evaluation - Extensive smoking history (2 PPD for 40-50 years) - Will consult oncology when pathology available Possible pneumonia - will continue on Vancomycin, Zosyn and Levaquin pending bronchoscopy results - Appreciate pulmonology recommendations Severe COPD - On 2L O2 at home - Duonebs QIDR, then Q2H PRN for wheezing - Switch from Dulera to Pulmicort nebulizers - Continued wheezing but feels his breathing has improved Thoracic aortic aneurysm - Size noted. follow Type 2 Diabetes Mellitus - HbA1C 11.2 - Hold home Sitagliptin - BSG AC and HS - Hold lantus this morning due to hypoglycemia, Sliding scale insulin: correction 25, carb ratio 8 (will need tighter control if starts on steroids) Diastolic congestive heart failure / Coronary artery disease / Hypertension / Hyperlipidemia - does not appear to be in acute failure - unclear why he is not on aspirin or statin (request outpatient notes) - continue metoprolol, losartan and ISMN - Continue fenofibrate - takes lasix PRN outpatient - no current need for this now - ECHO LVEF 60-65%, small proximal inferoposterior wall akinetic region, diastolic dysfunction suggested - EKG on admission with nonspecific T wave abnormality (no previous to compare) - appreciate cardiology management Depression - Continue home Doxepin and Lexapro BPH - Continue Tamsulosin Chronic Pain - Continue Tramadol 50mg q6h PRN - Hold meloxicam as awaiting bronchoscopy Smoking Cessation - Nicotine Patch 21mg qAM VTE Prophylaxis - SCDs - chemical prophylaxis deferred pending bronchoscopy results Code Status - Full Disposition - continued on telemetry given cardiac risk factors and needing high level of care due to severity of illness Resident Tracking Resident Involvement: Resident Care Provided Care Provided: Adult Hospital Medicine Reviewed: Pt Seen/Exam by Me History seen after bronch. sedated from anesthesia. family at bedside Constitutional: denies: fever General Appearance: other (sedated. ) Respiratory: respiratory distress (mild), decreased breath sounds Cardiovascular: regular rate, rhythm Skin Characteristics: warm/dry Assessment/Plan Resident Physician Supervision Note: I independently interviewed and examined the patient and verified the bryant history and physical, reviewed labs and image studies, discussed the case with the resident Dr. Rosas and agree with the findings and care plan.
--- NOTE | 2017-10-25 11:10 | Bronchoscopy Procedure Note ---
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 Start time: 1049 End time: 1100 Total time: 11minutes Analgesia: 2% liquid lidocaine: Via nebulizer 4% gel lidocaine: Via right naris 2% liquid lidocaine: Via bronchoscopy Sedation: Versed IV: 2 mg Fentanyl IV: 50 g Procedure: The Olympus video bronchoscope was used for this procedure and passed down through the right naris Right naris/posterior naris/posterior oropharynx: Anatomically within normal limits Glottis: Anatomically within normal limits, diffuse mucous secretions noted around the glottis Vocal cords: Proper abduction and abduction, anatomically within normal limits Subglottis/trachea: Anatomically within normal limits Allyssa: Notably splayed Right bronchial tree: Right mainstem bronchus: Anatomically within normal limits Right upper lobe: Anatomically within normal limits Bronchus intermedius: Caudal and notable mucosal tumor infiltration with external compression of the right middle lobe and right lower lobes Right middle lobe: Mucosal Tumor infiltration with external compression of the takeoff Right lower lobe: Mucosal Tumor infiltration with external compression of the takeoff Left bronchial tree: Left mainstem bronchus: Anatomically within normal limits Left upper lobe: Anatomically within normal limits Lingula: Anatomically within normal limits Left lower lobe: Anatomically within normal limits Findings: No significant findings noted Bronchial alveolar lavage: Right lower lobe EBL: None Complications: None Follow-up: In patient rhythm
[2017-10-25] MEDS ORDERED: FENTANYL CITRATE INJ 50 MCG/1 ML 2 ML VIAL IV ONE (11:45)
[2017-10-25] MEDS ORDERED: LIDOCAINE HCL 2% LOCAL 50ML VIAL INSTIL ONE (11:45)
[2017-10-25] MEDS ORDERED: LIDOCAINE 4% INH SOLN 4 ML BTL TOP ONE (11:45)
[2017-10-25] MEDS ORDERED: MIDAZOLAM HCL 5 MG/ML 1 ML VIAL IV ONE (11:45)
[2017-10-25] MEDS ORDERED: LIDOCAINE VISCOUS 2% 100ML TOP ONE (11:45)
--- NOTE | 2017-10-25 12:30 | Clinical Documentation Query ---
CLINICAL DOCUMENTATION QUERY Dr. 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 Clinical Indicators: 77 yo male presenting with worsening dyspnea and possible pneumonia. CT chest: highly suggestive of bronchogenic carcinoma. Currently findings being described as a "mass obstruction" Treatment: consult thoracic surgery and pulmonary, R thoracentesis, pending pathology results, O2 support, tele monitoring, nebs Risk Factors: heavy smoking history, severe COPD, Please clarify and document your clinical opinion in the progress notes and discharge summary. Terms such as "probable", "suspected", "likely", "questionable", "possible", or "still to be ruled out" are acceptable. IF IN AGREEMENT, YOU MUST DOCUMENT ABOVE DIAGNOSTIC STATEMENT IN DAILY PROGRESS NOTES AND DISCHARGE SUMMARY. This document is not part of the patient's record. Thank You, Barb Reaves RN [phone]
--- NOTE | 2017-10-25 12:32 | Clinical Documentation Query ---
CLINICAL DOCUMENTATION QUERY Dr. POLANCO, In your clinical opinion is this patient being managed for: ( x ) Suspected lung cancer with suspected malignant pleural effusion ( ) Not Agree ( ) Other explanation of clinical findings (Please Explain) ( ) Unable to determine (Please Define) ( ) Need to Discuss The medical record reflects the following clinical findings, treatment, and risk factors. Clinical Indicators: 77 yo male presenting with worsening dyspnea and possible pneumonia. CT chest: highly suggestive of bronchogenic carcinoma. Currently findings being described as a "mass obstruction" Treatment: consult thoracic surgery and pulmonary, R thoracentesis, pending pathology results, O2 support, tele monitoring, nebs Risk Factors: heavy smoking history, severe COPD, Please clarify and document your clinical opinion in the progress notes and discharge summary. Terms such as "probable", "suspected", "likely", "questionable", "possible", or "still to be ruled out" are acceptable. IF IN AGREEMENT, YOU MUST DOCUMENT ABOVE DIAGNOSTIC STATEMENT IN DAILY PROGRESS NOTES AND DISCHARGE SUMMARY. This document is not part of the patient's record. Thank You, Barb Reaves, RN [phone]
--- NOTE | 2017-10-25 16:34 | Medical Student: [facility] ---
[facility] Student Progress Note Date of Service Oct 25, 2017. Subjective Pt evaluation today including: conversation w/ patient, conversation w/ family , physical exam, chart review, lab review Pt is a 77 yo M who presented to [facility] with worsening SOB and chest pain with subsequent transfer to [facility] for "diagnostic imaging" and "specialty care" purposes. Pt has an extensive smoking hx (~2PPD for 66 years). PMH notable for COPD, T2DM, and HTN. CXR finding notable for R pleural effusion and R airspace basilar opacity. Chest CT found an ill-defined R hilar mass and multiple lesions in the liver. According to pt his breathing continues to improve and he is still on 3.0 L NC currently. NPO as bronchoscopy was planned for this morning. Denies SOB, chest pain, or pain elsewhere. Review of Systems Constitutional: No fever, No chills Eyes: + problem reported (pt legally blind) ENT: + problem reported (pt hearing is impaired) Respiratory: + cough, + sputum (clear) Cardiac: + orthopnea, + PND, + edema, No chest pain Abdomen: No pain, No nausea, No vomiting Musculoskeletal: No joint pain, No muscle pain Male : No dysuria Neurologic: No memory loss, No paralysis Psychiatric: No depression symptoms Skin: + problem reported (bruising over pt's arms bilaterally), No rash, No itch Objective Vital Signs Date Time Temp Pulse Resp B/P (MAP) Pulse Ox O2 Delivery O2 Flow Rate FiO2 10/25/17 08:00 36.8 77 24 185/80 (115) 93 Nasal Cannula 3.0 10/25/17 08:00 83 18 91 Nasal Cannula 3.0 10/25/17 04:00 93 Nasal Cannula 3.0 10/25/17 03:52 36.8 72 17 153/73 (99) 93 Nasal Cannula 2.0 10/25/17 00:36 36.9 71 22 144/58 (86) 94 Nasal Cannula 10/25/17 00:01 93 Nasal Cannula 3.0 10/24/17 20:00 Nasal Cannula 3.0 10/24/17 19:35 79 18 93 Nasal Cannula 3.0 10/24/17 19:30 36.7 80 20 169/80 (109) 90 Nasal Cannula 3.0 10/24/17 16:37 36.7 76 21 147/80 (102) 93 Nasal Cannula 3.0 10/24/17 16:00 Nasal Cannula 3.0 10/24/17 14:58 61 18 92 Nasal Cannula 3.0 10/24/17 12:00 Nasal Cannula 3.0 10/24/17 11:34 88 18 97 Nasal Cannula 3.0 10/24/17 11:20 36.7 79 22 162/79 (106) 95 3.0 Physical Exam General Appearance: WD/WN, no apparent distress Eyes: bilateral eyes normal inspection ENT: normal ENT inspection, + pertinent finding (hearing impaired) Neck: supple, no adenopathy, no JVD Respiratory/Chest: chest non-tender, + decreased breath sounds (right side decreased more than left), + crackles, + wheezing (both inspiratory and expiratory) Cardiovascular: regular rate, rhythm, no JVD, no murmur Abdomen: normal bowel sounds, non tender, soft Extremities: normal range of motion, non-tender, normal inspection, + pedal edema (+1 bilaterl LE) Neurologic/Psychiatric: no motor/sensory deficits, alert, normal mood/affect, oriented x 3 Skin: normal color, warm/dry, no rash, + pertinent finding (bruises on arms bilaterally) Laboratory Results Last 24 Hours Test 10/24/17 11:02 10/24/17 11:51 10/24/17 12:15 10/24/17 16:18 Bedside Glucose 75 mg/dl 133 mg/dl Arterial Blood pH 7.43 Arterial Blood Partial Pressure CO2 43 mmHg Arterial Blood Partial Pressure O2 70 mm/Hg Arterial Blood HCO3 28 mmol/L Arterial Blood Oxygen Saturation 93.1 % Arterial Blood Base Excess 3.0 mEq/L Arterial Blood Gas Delivery 3L Reid Test POS Pleural Fluid Source RIGHT LUNG Pleural Fluid Color YELLOW Pleural Fluid Appearance HAZY Pleural Fluid WBC 3349 /uL Pleural Fluid RBC 4000 /uL Pleural Fluid pH 7.40 Pleural Fluid Polynuclear WBCs % 2.8 % Pleural Fluid Mononuclear WBCs % 97.2 % Pleural Fluid Total Protein 3.2 g/dl Pleural Fluid LDH 220 IU Pleural Fluid Glucose 139 mg/dl Pleural Fluid Amylase 14 U/L Test 10/24/17 20:12 10/25/17 06:56 10/25/17 07:12 Bedside Glucose 144 mg/dl 103 mg/dl White Blood Count 13.66 K/uL Red Blood Count 4.58 M/uL Hemoglobin 13.5 g/dL Hematocrit 41.2 % Mean Corpuscular Volume 90.0 fL Mean Corpuscular Hemoglobin 29.5 pg Mean Corpuscular Hemoglobin Concent 32.8 g/dl Platelet Count 381 K/uL Mean Platelet Volume 9.8 fL Neutrophils (%) (Auto) 77.4 % Lymphocytes (%) (Auto) 10.0 % Monocytes (%) (Auto) 9.2 % Eosinophils (%) (Auto) 1.0 % Basophils (%) (Auto) 0.4 % Neutrophils # (Auto) 10.59 K/uL Lymphocytes # (Auto) 1.37 K/uL Monocytes # (Auto) 1.25 K/uL Eosinophils # (Auto) 0.13 K/uL Basophils # (Auto) 0.05 K/uL RDW Standard Deviation 47.7 fL RDW Coefficient of Variation 14.7 % Immature Granulocyte % (Auto) 2.0 % Immature Granulocyte # (Auto) 0.27 K/uL Activated Partial Thromboplast Time 27.3 SECONDS Partial Thromboplastin Ratio 1.1 Sodium Level 138 mmol/L Potassium Level 3.5 mmol/L Chloride Level 101 mmol/L Carbon Dioxide Level 30 mmol/L Anion Gap 7.0 mmol/L Blood Urea Nitrogen 13 mg/dl Creatinine 0.81 mg/dl Est Creatinine Clear Calc Drug Dose 77.8 ml/min Estimated GFR () 99.4 Estimated GFR (Non- 85.7 BUN/Creatinine Ratio 15.6 Random Glucose 67 mg/dl Calcium Level 8.7 mg/dl Medications Current Inpatient Medications Medications (Trade) Dose Ordered Sig/Ramin Route Start Time Stop Time Status Last Admin Dose Admin Escitalopram Oxalate (Lexapro Tab) 20 mg DAILY PO 10/24/17 09:00 11/23/17 08:59 10/25/17 08:28 20 MG Fenofibrate (Tricor Tab) 145 mg DAILY PO 10/24/17 09:00 11/23/17 08:59 10/25/17 08:29 145 MG Isosorbide Mononitrate (Imdur Ext Rel Tab) 30 mg DAILY PO 10/24/17 09:00 11/23/17 08:59 10/25/17 08:27 30 MG Losartan Potassium (coZAAR TAB) 25 mg DAILY PO 10/24/17 09:00 2/9/18 08:59 10/25/17 08:28 25 MG Metoprolol Succinate (Toprol Xl Tab) 25 mg DAILY PO 10/24/17 09:00 11/23/17 08:59 10/25/17 08:29 25 MG Nitroglycerin (Nitrostat Tab) 0.4 mg PRN PRN UT 10/23/17 23:15 11/22/17 23:14 Pantoprazole Sodium (Protonix Tab) 40 mg DAILY PO 10/24/17 09:00 11/23/17 08:59 10/25/17 08:28 40 MG Potassium Chloride (Klor-Con M10) 20 meq DAILY PO 10/24/17 09:00 11/23/17 08:59 10/25/17 08:27 20 MEQ Tamsulosin HCl (Flomax Cap) 0.4 mg DAILY PO 10/24/17 09:00 11/23/17 08:59 10/25/17 08:27 0.4 MG Tramadol HCl (Ultram Tab) 50 mg Q6H PRN PO 10/23/17 23:15 11/22/17 23:14 Miscellaneous Information (Order Awaiting Action) 1 ea QS N/A 10/24/17 00:00 11/23/17 00:00 Miscellaneous Information (Order Awaiting Action) 1 ea QS N/A 10/24/17 08:00 11/23/17 07:59 Piperacillin Sod/ Tazobactam Sod 3.375 gm/Dextrose 115 ml @ 28.75 mls/ hr Q8H IV 10/24/17 04:00 10/26/17 03:59 10/25/17 04:20 28.75 MLS/HR Levofloxacin (Levaquin Tab) 750 mg DAILY PO 10/23/17 23:30 10/25/17 23:29 10/25/17 08:28 750 MG Albuterol/ Ipratropium (Duoneb) 3 ml QIDR INH 10/24/17 08:00 11/23/17 07:59 10/25/17 07:56 3 ML Acetaminophen (Tylenol Tab) 650 mg Q4H PRN PO 10/23/17 23:30 11/22/17 23:29 10/24/17 21:36 650 MG Magnesium Hydroxide (Milk Of Magnesia Susp) 30 ml Q12H PRN PO 10/23/17 23:30 11/22/17 23:29 10/24/17 11:39 30 ML Ondansetron HCl (Zofran Inj) 4 mg Q6H PRN IV 10/23/17 23:30 11/22/17 23:29 10/25/17 10:16 4 MG Nicotine (Nicoderm Cq 21MG Patch) 1 patch QAM TD 10/24/17 09:00 11/23/17 08:59 10/25/17 08:29 1 PATCH Miscellaneous (Remove Nicoderm Patch) 1 ea HS N/A 10/24/17 21:00 11/23/17 20:59 10/24/17 20:19 1 EA Budesonide (Pulmicort Respules 0.5MG/ 2ML Neb Soln) 0.5 mg BIDR INH 10/24/17 01:15 11/23/17 01:14 10/25/17 07:56 0.5 MG Insulin Aspart (novoLOG ASPART) SLIDING SCALE G... ACHS SC 10/24/17 07:00 11/23/17 06:59 10/24/17 20:21 1 UNITS Glucose (Glucose 40% Gel) 15-30 GRAMS 15 GRAMS... UD PRN PO 10/24/17 02:00 11/23/17 01:59 Glucose (Glucose Chew Tab) 4-8 Tablets 4 Tabl... UD PRN PO 10/24/17 02:00 11/23/17 01:59 Dextrose (Dextrose 50% 50ML Syringe) 25-50ML OF 50% DW IV FOR... UD PRN IV 10/24/17 02:00 11/23/17 01:59 10/25/17 10:17 50 ML Glucagon (Glucagon Inj) 1 mg UD PRN SQ 10/24/17 02:00 11/23/17 01:59 Albuterol/ Ipratropium (Duoneb) 3 ml Q2H PRN INH 10/24/17 02:30 11/23/17 02:29 Miscellaneous (Iv Fluids Completed) 1 ea PRN PRN N/A 10/24/17 03:00 10/24/18 02:59 Vancomycin HCl (Consult) 1 ea UD PRN N/A 10/24/17 08:30 10/26/17 23:59 Piperacillin Sod/ Tazobactam Sod (Consult) 1 ea UD PRN N/A 10/24/17 08:30 10/26/17 23:59 Vancomycin HCl 1000 mg/Sodium Chloride 270 ml @ 125 mls/hr Q12H IV 10/24/17 12:00 10/26/17 00:00 10/25/17 00:44 125 MLS/HR Insulin Glargine (Lantus Solostar Pen) 15 units BID SC 10/24/17 21:00 11/23/17 20:59 Future Hold 10/24/17 20:22 15 UNITS Assessment and Plan Assessment and Plan: Pt is a 77 yo M who presented to [facility] with worsening SOB and chest pain with subsequent transfer to [facility] for "diagnostic imaging" and "specialty care" purposes. He has an extensive smoking hx (~2PPD for 66 years). PMH notable for COPD, T2DM, and HTN. CXR finding notable for R pleural effusion and R airspace basilar opacity. Chest CT found an ill-defined R hilar mass and multiple hypodense lesions in the liver. Acute on chronic hypoxic respiratory failure - Collapse of the R middle and lower lobes 2/2 mass obstruction from the hilar mass which is consistent with a primary bronchogenic malignancy. Significant smoking hx. - Dr. 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 Pleural fluid analysis pending. - Initial analysis shows transudative properties COPD (severe/on oxygen outpatient) - On 3L NC O2 at home - Duonebs - Pulmicort T2DM - HbA1c 11.2 - Lantus 15 units SQ BID plus sliding scale - Glucose check AC and HS CHF / CT / CABG X 4 - Outpatient notes requested - Continue fenofibrate, metoprolol, losartan, ISMN - ECHO ordered: - Small akinetic and thinned segment involving the proximal inferoposterior wall. - EF 60 - 65%. - Mild concentric left ventricular hypertrophy. - Diastolic dysfunction suggested. - Moderate aortic valve sclerosis without significant stenosis. - Mild mitral regurgitation. - Cardio consulted - Nitrostat PRN, ISMN, losartan, metoprolol, Klor-Con CAD - Pt has CT / CABG x 4 - Not sure why no aspirin or statin - Outside notes requested HTN - Metoprolol and losartan Suspected pneumonia - Continue vanc, zosyn, and levoquin Thoracic aortic aneurysm - 5. 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 - Follow Depression - Continue doxepin and lexapro BPH - Tamsolusin Chronic pain - Tramadol Smoking Cessation - Nicotine patch 21mg q AM VTE Prophylaxis - SCDs Code - Full Disposition - Continue on tele
--- NOTE | 2017-10-25 19:25 | Medical Consult ---
Consultation Date of Consultation: Oct 25, 2017. Attending Physician: Daniella Miranda M.D. History of Present Illness ONCOLOGY HEMATOLOGY CONSULT: Evaluation and management of small-cell lung cancer. Date of consult: 10/25/2017 Consult requested by HPI: 77-year-old male who presented at local hospital ER ([facility]) for worsening shortness of breath, some nonspecific chest pain about 3 months duration which got worse and subsequently he was transferred at [facility] for further diagnostic evaluation. Long-standing history of smoking, perhaps 2 pack per day for the last 60 years also. He has few other comorbid conditions mainly diabetes mellitus, recently he was treated for steroid therapy for increasing shortness of breath, which did not respond well with the steroid as well as antibiotic therapy. Earlier he was using nasal cannula supplemental oxygen on p.r.n. basis at nighttime but lately in the last 3 months has been using it on a regular basis at 3 liters per minute. Further workup as follows: - CT scan of chest done on 10/23/2017 --> Multiple hypodense lesions noted throughout the liver, the largest one in the left lobe of the liver measuring 3 cm. Right supraclavicular lymph node measuring 1.6 x 1.4 cm, mediastinal and left hilar lymphedenopathy, subcarinal lymph node measuring up to 5.6 cm, dominant left hilar lymph node measuring 2.5 cm, right hilum appears to be replaced by ill-defined soft tissue mass which cannot be really measured on the non-contrast study, results in the complete obstruction of the bronchus intermedius. Upper abdominal lymphadenopathy noted. Small to moderate right pleural effusion noted. 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 - CT scan of the chest done on 10/25/2017 --> Large irregular right infrahilar/ hilar mass causing occlusion of the bronchus intermedius and volume loss within the right middle lobe and right lower lobe, decreasing right pleural effusion noted after thoracocentesis, extensive right supraclavicular communist of the bilateral hilar and upper abdominal lymphadenopathy noted. Descending thoracic aorta can resume measuring 5 x 3.7 cm, moderate emphysema noted. Nodular septal thickening within the right lung favoring lymphangitic carcinomatosis noted. Bronchoscopic invitation by Dr. Huff (10/25/2017) --> -Bronchus intermedius: Caudal and notable mucosal tumor infiltration with external compression of the right middle lobe and right lower lobes -Right middle lobe: Mucosal Tumor infiltration with external compression of the takeoff -Right lower lobe: Mucosal Tumor infiltration with external compression of the takeoff. I saw him at bedside, several family members were at bedside, he was sitting in the chair, receiving oxygen therapy at 3 L per minute, says that after thoracocentesis bleeding has improved, has some nonspecific chest pain, also complain some nonspecific left shoulder pain for the last 3 to 4 months duration , no increasing headache, no nausea, no vomiting, no focal neurological symptoms , before this hospice, he was immolating well by himself. He feels weak and tired, has some memory changes, impaired hearing present. REVIEW OF SYSTEMS: GENERAL: No change in weight, feels slightly weak and tired, no fever, sweats or chills. SKIN: No skin rash, some bruising of the skin noted. HEAD: No headache, no new dizziness. EYES: No recent change in the vision, no diplopia, EARS: No earache ,no tinnitus, impaired hearing present. NOSE: No epistaxis, No nasal discharge or stuffiness, MOUTH: No sores, no dysphagia, no hoarseness of voice, NECK: No lumps, No swelling in thyroid area. No stiffness. PULMONARY shortness of breath on exertion present, increasing coughing with scanty white expectant, no hemoptysis, had some chest pain earlier, CARDIOVASCULAR: No anginal chest pain, no PND, no orthopnea. No palpitation, no increasing leg edema. No syncope. History of CABG surgery in the past. GASTRIINTESTINAL: No abdominal pain, no nausea or vomiting. No diarrhea, No constipation. No blood in stool or black tarry stools. No abdominal distention. UROLOGIC: No burning urination. No hematuria. MUSCULOSKELETAL: left shoulder pain present, chronic back pain present, had fracture in the hip, S/P surgery intervention about 3 to 4 years back. HEMATOLOGIC: No anemia, no bleeding disorder, No bruising NEUROLOGIC: No seizures, no focal weakness, no speech difficulty, some memory disturbances. No tingling or numbness of the extremities. PSYCHRIATRIC: history of depression, he is on doxepin and Lexapro.. No anxiety. No psychosis. PAST MEDICAL/SURGICAL HISTORY: - Diabetes mellitus - COPD - Congestive heart failure. - Hyperlipidemia. - Hypertension. - BPH SOCIAL HISTORY: Smoking for the last 60 years or so. His about 15 years back. Has strong family support. He lives in [place], [place] denies any EtOH abuse. FAMILY HISTORY: not significant. MEDICATIONS: please review his chart for detailed list of medications. On exam: - Alert and oriented x3, well built man, not in any distress. - HEENT: no icterus, no pallor, Throat: Normal. - Neck: No palpable cervical lymphadenopathy. - Chest: clear to auscultation. - Abdomen: soft, nontender, no hepatomegaly, no splenomegaly. - No focal neuro deficit. - Extremities: no finger clubbing, no leg edema. LABS: Blood workup done on 10/25/2017: - WBC 13,600, H&H of 13.5/41.2, Platelet count of 381,000. - BUN/creatinine: 13/0.8, calcium 8.7. - Hemoglobin A1c --> 11.7 - AST 52, ALT 32, alkaline phosphatase 112, Total bilirubin: 0.3 (10/23/2017 - Albumin 2.3, globulin 4.6. - Normal PT and PTT. Pleural fluid analysis: - WBC 3349, RBC 4000 - Total protein 3.2, LDH 220, glucose 139, MLS 14. - Cholesterol era pending. - PH 7.4. ASSESSMENT AND PLAN: 77-year-old male, who has long-standing history of smoking , now admitted for increasing shortness of breath for the last 3 months duration , has underlying COPD, now for the last 3 months he is on oxygen therapy at home , recent imaging study showed right hilar/infrahilar mass which is causing occlusion of the bronchus intermedius and some volume loss of the right middle and lower lobe, bilateral hilar lymphedenopathy, supraclavicular lymphadenopathy , multiple liver lesions suspicious for metastatic disease, also has few other comorbid conditions as outlined above. Also has right pleural effusion, pleural cytology positive for small-cell lung cancer. He has extensive stage small-cell lung cancer, I reviewed with the patient and mainly family members regarding the diagnostic workup done in his case, he has stage IV disease, overall treatment goal would be palliative and not curative. I would like to get CT scan of the abdomen and pelvis, bone scan as well as brain MRI for initial staging workup. Discussed with them regarding the role of systemic chemotherapy that can be considered for small-cell lung cancer, I would consider for combination of Carboplatin and Etoposide chemotherapy, reviewed with them regarding treatment show side effect profile and the they would like to proceed with the systemic chemotherapy in his case. Chemotherapy schedule: - Carboplatin at AUC of 4 on day 1 (because of his age and other comorbid conditions, I'm planning for lower dose of Carboplatin at age of 4). - Etoposide at 80 mg/m2 daily for 3 days. - Prophylactic Neulasta 24 after the completion recommended to prevent febrile neutropenia. - Repeating chemotherapy every 21 days. Because of stage IV disease, I would not consider for any radiation treatment to the lung mass at this time. I'm planning for chemotherapy treatment while he is inpatient during this hospitalization. Will check LDH and uric acid, he is at a high risk for tumor lysis, would like to start prophylactic allopurinol 300 mg once a day to prevent tumor lysis. We should continue allopurinol for about 1 month and then discontinue it. He should receive Zofran (8 mg every 8 hourly as needed) and Compazine (10 mg every 6 hourly as needed) for the symptomatic treatment of nausea and vomiting. Thanks for the consultation. Sebastian Morales MD Hem/Onc Social History Smoking Status: Former Smoker (2 packs per day. Pt states he quit 1 month ago.) Smokeless Tobacco Use: No Alcohol Use: none Drug Use: none Occupation Status: retired Allergies Coded Allergies: Cortisone (Verified Allergy, Unknown, unknown, 10/23/17) Current Inpatient Medications Current Inpatient Medications Medications (Trade) Dose Ordered Sig/Ramin Route Start Time Stop Time Status Last Admin Dose Admin Escitalopram Oxalate (Lexapro Tab) 20 mg DAILY PO 10/24/17 09:00 11/23/17 08:59 10/25/17 08:28 20 MG Fenofibrate (Tricor Tab) 145 mg DAILY PO 10/24/17 09:00 11/23/17 08:59 10/25/17 08:29 145 MG Isosorbide Mononitrate (Imdur Ext Rel Tab) 30 mg DAILY PO 10/24/17 09:00 11/23/17 08:59 10/25/17 08:27 30 MG Losartan Potassium (coZAAR TAB) 25 mg DAILY PO 10/24/17 09:00 11/23/17 08:59 10/25/17 08:28 25 MG Metoprolol Succinate (Toprol Xl Tab) 25 mg DAILY PO 10/24/17 09:00 11/23/17 08:59 10/25/17 08:29 25 MG Nitroglycerin (Nitrostat Tab) 0.4 mg PRN PRN UT 10/23/17 23:15 11/22/17 23:14 Pantoprazole Sodium (Protonix Tab) 40 mg DAILY PO 10/24/17 09:00 11/23/17 08:59 10/25/17 08:28 40 MG Potassium Chloride (Klor-Con M10) 20 meq DAILY PO 10/24/17 09:00 11/23/17 08:59 10/25/17 08:27 20 MEQ Tamsulosin HCl (Flomax Cap) 0.4 mg DAILY PO 10/24/17 09:00 11/23/17 08:59 10/25/17 08:27 0.4 MG Tramadol HCl (Ultram Tab) 50 mg Q6H PRN PO 10/23/17 23:15 11/22/17 23:14 Miscellaneous Information (Order Awaiting Action) 1 ea QS N/A 10/24/17 00:00 11/23/17 00:00 Miscellaneous Information (Order Awaiting Action) 1 ea QS N/A 10/24/17 08:00 11/23/17 07:59 Piperacillin Sod/ Tazobactam Sod 3.375 gm/Dextrose 115 ml @ 28.75 mls/ hr Q8H IV 10/24/17 04:00 10/31/17 03:59 10/25/17 19:21 28.75 MLS/HR Albuterol/ Ipratropium (Duoneb) 3 ml QIDR INH 10/24/17 08:00 11/23/17 07:59 10/25/17 07:56 3 ML Acetaminophen (Tylenol Tab) 650 mg Q4H PRN PO 10/23/17 23:30 11/22/17 23:29 10/24/17 21:36 650 MG Magnesium Hydroxide (Milk Of Magnesia Susp) 30 ml Q12H PRN PO 10/23/17 23:30 11/22/17 23:29 10/24/17 11:39 30 ML Ondansetron HCl (Zofran Inj) 4 mg Q6H PRN IV 10/23/17 23:30 11/22/17 23:29 10/25/17 10:16 4 MG Nicotine (Nicoderm Cq 21MG Patch) 1 patch QAM TD 10/24/17 09:00 11/23/17 08:59 10/25/17 08:29 1 PATCH Miscellaneous (Remove Nicoderm Patch) 1 ea HS N/A 10/24/17 21:00 11/23/17 20:59 10/24/17 20:19 1 EA Budesonide (Pulmicort Respules 0.5MG/ 2ML Neb Soln) 0.5 mg BIDR INH 10/24/17 01:15 11/23/17 01:14 10/25/17 07:56 0.5 MG Insulin Aspart (novoLOG ASPART) SLIDING SCALE G... ACHS SC 10/24/17 07:00 11/23/17 06:59 10/25/17 16:15 5 UNITS Glucose (Glucose 40% Gel) 15-30 GRAMS 15 GRAMS... UD PRN PO 10/24/17 02:00 11/23/17 01:59 Glucose (Glucose Chew Tab) 4-8 Tablets 4 Tabl... UD PRN PO 10/24/17 02:00 11/23/17 01:59 Dextrose (Dextrose 50% 50ML Syringe) 25-50ML OF 50% DW IV FOR... UD PRN IV 10/24/17 02:00 11/23/17 01:59 10/25/17 10:17 50 ML Glucagon (Glucagon Inj) 1 mg UD PRN SQ 10/24/17 02:00 11/23/17 01:59 Albuterol/ Ipratropium (Duoneb) 3 ml Q2H PRN INH 10/24/17 02:30 11/23/17 02:29 Miscellaneous (Iv Fluids Completed) 1 ea PRN PRN N/A 10/24/17 03:00 10/24/18 02:59 Piperacillin Sod/ Tazobactam Sod (Consult) 1 ea UD PRN N/A 10/24/17 08:30 10/31/17 08:29 Insulin Glargine (Lantus Solostar Pen) 15 units BID SC 10/24/17 21:00 11/23/17 20:59 Future Hold 10/24/17 20:22 15 UNITS Physical Exam Date Time Temp Pulse Resp B/P (MAP) Pulse Ox O2 Delivery O2 Flow Rate FiO2 10/25/17 15:57 37.0 85 18 117/67 (84) 91 Nasal Cannula 4.0 10/25/17 14:40 86 18 94 Nasal Cannula 3.0 10/25/17 13:25 86 24 132/72 (92) 94 Non-Rebreather 10.0 10/25/17 12:55 81 22 132/71 (91) 97 Non-Rebreather 10.0 10/25/17 12:30 81 22 114/69 (84) 94 Non-Rebreather 10.0 10/25/17 12:00 Non-Rebreather 10.0 10/25/17 11:50 37.0 79 24 113/66 (82) 92 Non-Rebreather 10.0 10/25/17 11:46 Mask 10/25/17 11:15 90 19 113/64 91 Mask 10 10/25/17 11:10 80 18 124/70 91 Mask 10 10/25/17 11:05 81 17 116/68 91 Mask 10 10/25/17 11:00 81 17 141/78 96 Mask 10 10/25/17 10:55 81 17 141/78 96 Mask 10 10/25/17 10:50 81 17 141/78 96 Mask 10 10/25/17 10:45 80 17 142/85 96 Mask 10 10/25/17 10:30 82 18 139/84 96 Mask 10 10/25/17 08:00 93 Nasal Cannula 3.0 10/25/17 08:00 36.8 77 24 185/80 (115) 93 Nasal Cannula 3.0 10/25/17 08:00 83 18 91 Nasal Cannula 3.0 10/25/17 04:00 93 Nasal Cannula 3.0 10/25/17 03:52 36.8 72 17 153/73 (99) 93 Nasal Cannula 2.0 10/25/17 00:36 36.9 71 22 144/58 (86) 94 Nasal Cannula 10/25/17 00:01 93 Nasal Cannula 3.0 10/24/17 20:00 Nasal Cannula 3.0 10/24/17 19:35 79 18 93 Nasal Cannula 3.0 10/24/17 19:30 36.7 80 20 169/80 (109) 90 Nasal Cannula 3.0 Laboratory Results Last 24 Hours Test 10/24/17 20:12 10/25/17 06:47 10/25/17 06:56 10/25/17 07:12 Bedside Glucose 144 mg/dl 67 mg/dl 103 mg/dl White Blood Count 13.66 K/uL Red Blood Count 4.58 M/uL Hemoglobin 13.5 g/dL Hematocrit 41.2 % Mean Corpuscular Volume 90.0 fL Mean Corpuscular Hemoglobin 29.5 pg Mean Corpuscular Hemoglobin Concent 32.8 g/dl Platelet Count 381 K/uL Mean Platelet Volume 9.8 fL Neutrophils (%) (Auto) 77.4 % Lymphocytes (%) (Auto) 10.0 % Monocytes (%) (Auto) 9.2 % Eosinophils (%) (Auto) 1.0 % Basophils (%) (Auto) 0.4 % Neutrophils # (Auto) 10.59 K/uL Lymphocytes # (Auto) 1.37 K/uL Monocytes # (Auto) 1.25 K/uL Eosinophils # (Auto) 0.13 K/uL Basophils # (Auto) 0.05 K/uL RDW Standard Deviation 47.7 fL RDW Coefficient of Variation 14.7 % Immature Granulocyte % (Auto) 2.0 % Immature Granulocyte # (Auto) 0.27 K/uL Activated Partial Thromboplast Time 27.3 SECONDS Partial Thromboplastin Ratio 1.1 Sodium Level 138 mmol/L Potassium Level 3.5 mmol/L Chloride Level 101 mmol/L Carbon Dioxide Level 30 mmol/L Anion Gap 7.0 mmol/L Blood Urea Nitrogen 13 mg/dl Creatinine 0.81 mg/dl Est Creatinine Clear Calc Drug Dose 77.8 ml/min Estimated GFR () 99.4 Estimated GFR (Non- 85.7 BUN/Creatinine Ratio 15.6 Random Glucose 67 mg/dl Calcium Level 8.7 mg/dl Test 10/25/17 10:06 10/25/17 11:30 10/25/17 16:19 Bedside Glucose 79 mg/dl 130 mg/dl 146 mg/dl
[2017-10-25] MEDS ORDERED: OPTIRAY 320 IV PRN (19:45)
[2017-10-25] MEDS: TRAMADOL HCL 50 MG TAB PO PRN (19:56)
[2017-10-25] MEDS ORDERED: LORAZEPAM 2 MG/ML 1 ML VIAL IV PRN (22:00)
--- NOTE | 2017-10-25 22:42 | DIAGNOSTIC IMAGING REPORT ---
ABD/PELVIS IV AND ORAL CONT CT DOSE: 982.26 mGy.cm HISTORY: Mass Small-cell lung cancer, rule out mets. TECHNIQUE: Multiaxial CT images of the abdomen and pelvis were performed following the use of intravenous and oral contrast. A dose lowering technique was utilized adhering to the principles of ALARA. COMPARISON STUDY: CT chest 10/24/2017 FINDINGS: Complex consolidative mass right lung base which has been previously described. There has solid as well as complex cystic components. There is complete occlusion and consolidative change of the right lung base which has been described previously. The left base is generally clear. May be a trace amount pleural fluid at the posterior calcified angle. Findings of widespread metastatic disease throughout all major lobes the liver. There is no evidence for biliary ductal distention. 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 It extends from the bifurcation superiorly to a level at and are slightly superior to the renal arteries and renal veins. True 5. Stable aneurysmal dilatation of the thoracic aorta which has been described previously luminal dimension is approximately is approximately 2.7 cm. There is severe atherosclerotic change of the arterial structures of the soft tissue pelvis. There are findings of a right hip pinning type procedure. Bladder is midline. There is mild chronic sigmoid diverticulosis. Bowel pattern overall is considered nonobstructive. There is an old healed fracture of the right 11th rib posteriorly. There are degenerative changes of the osseous structures throughout. A major lytic or blastic process is not seen within the limitations of this exam. IMPRESSION: 1. Large complex mass occupying the bulk of the right lung base. 2. Evidence for mediastinal extension as has been discussed previously in the CT of the chest. 3. Diffuse hepatic metastatic disease. 4. 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 Maximum dimensions are 5.3 x 5.9 cm in cross-section, with a true lumen of 2.7 cm. 5. Scattered upper abdominal adenopathy which has been described previously on the patient's chest CT exam. The above report was generated using voice recognition software. It may contain grammatical, syntax or spelling errors. Electronically signed by: Minor Davila M.D. 10/25/2017 10:40 PM Dictated Date/Time: 10/25/2017 10:30 PM
--- NOTE | 2017-10-25 22:51 | DIAGNOSTIC IMAGING REPORT ---
ORBITS FOR MRI HISTORY: Pre-MRI pre-MRI screening. COMPARISON: None. FINDINGS: There are no radiopaque foreign bodies identified within the orbits. IMPRESSION: No radiopaque foreign bodies identified within the orbits. Mild mucosal thickening maxillary sinuses The above report was generated using voice recognition software. It may contain grammatical, syntax or spelling errors. Electronically signed by: Minor Davila M.D. 10/25/2017 10:50 PM Dictated Date/Time: 10/25/2017 10:49 PM
[2017-10-25] MEDS ORDERED: GADAVIST IV PRN (23:30)
[2017-10-26] VITALS (13 sets, daily range): BP systolic 125–157; BP diastolic 69–79; PULSE 72–95; TEMP 36.8–37.5; O2SAT 87–96
[2017-10-26] MEDS: PIPERACILL/TAZOBAC IV 3.375 GM in DEXTROSE 5% 100ML 100 ML IV SCH ×3 (05:22→21:23)
[2017-10-26] MEDS: ALBUT/IPRATROP 3MG/0.5MG NEB 3 ML VIAL INH SCH ×4 (07:21→19:46)
[2017-10-26] MEDS: BUDESONIDE 0.5 MG/2 ML VIAL (PULMICORT) INH SCH ×2 (07:30→19:46)
--- NOTE | 2017-10-26 07:34 | DIAGNOSTIC IMAGING REPORT ---
MRI OF THE BRAIN WITHOUT AND WITH IV CONTRAST CLINICAL HISTORY: Small cell lung cancer. COMPARISON STUDY: No previous studies for comparison. TECHNIQUE: Utilizing a 1.5 Mena magnet and dedicated coil, multiplanar, multiecho imaging of the brain was performed pre and postcontrast administration. IV administration of 8.4 mL of Gadavist contrast was uneventful. FINDINGS: Exam is mildly compromised by motion artifact. There is a 4.1 x 3.3 x 3.6 cm peripherally enhancing lesion within the anterior right frontal region. This appears to be extra-axial in location. There is mild to moderate associated edema without significant mass effect. Specifically, the ventricular system is unremarkable and there is no subfalcine shift. This lesion is T2 hypointense. This lesion has restricted diffusion at its periphery. No additional intracranial masses are present. Ventricular system is unremarkable. Basilar cisterns are patent. Calvarial signal is unremarkable. There are suspected old lacunar infarcts within the bilateral cerebellar hemispheres as well as the bilateral basal ganglia. There is moderate small vessel disease. IMPRESSION: 4.1 x 3.3 x 3.6 cm right frontal peripherally enhancing mass with mild to moderate associated vasogenic edema and minimal mass effect. Extra-axial location is favored. The imaging appearance favors a meningioma. A metastasis could appear similar although is considered slightly less likely. A follow-up head CT to evaluate for calcification is recommended. Electronically signed by: Fabian Zavala M.D. 10/26/2017 7:33 AM Dictated Date/Time: 10/26/2017 7:20 AM
[2017-10-26] MEDS: [UNRECOGNIZED DRUG - OTHER] SCH ×3 (08:00→16:00)
[2017-10-26] MEDS: AVODART~ORDER AWAITING ACTION SCH ×3 (08:00→16:00)
--- NOTE | 2017-10-26 08:17 | Family Medicine Progress Note ---
Progress Note Date of Service Oct 26, 2017. Subjective Pt evaluation today including: conversation w/ patient, physical exam, chart review, lab review, review of studies, review of inpatient medication list Patient feels his shortness of breath is improving on daily basis. Discussed with Dr Morales yesterday regarding chemotherapy although the patient doesn't remember anything about this and is unsure regarding further treatment. All Other Systems: Reviewed and Negative Medications Current Inpatient Medications Medications (Trade) Dose Ordered Sig/Ramin Route Start Time Stop Time Status Last Admin Dose Admin Escitalopram Oxalate (Lexapro Tab) 20 mg DAILY PO 10/24/17 09:00 11/23/17 08:59 10/25/17 08:28 20 MG Fenofibrate (Tricor Tab) 145 mg DAILY PO 10/24/17 09:00 11/23/17 08:59 10/25/17 08:29 145 MG Isosorbide Mononitrate (Imdur Ext Rel Tab) 30 mg DAILY PO 10/24/17 09:00 11/23/17 08:59 10/25/17 08:27 30 MG Losartan Potassium (coZAAR TAB) 25 mg DAILY PO 10/24/17 09:00 11/23/17 08:59 10/25/17 08:28 25 MG Metoprolol Succinate (Toprol Xl Tab) 25 mg DAILY PO 10/24/17 09:00 11/23/17 08:59 10/25/17 08:29 25 MG Nitroglycerin (Nitrostat Tab) 0.4 mg PRN PRN UT 10/23/17 23:15 11/22/17 23:14 Pantoprazole Sodium (Protonix Tab) 40 mg DAILY PO 10/24/17 09:00 11/23/17 08:59 10/25/17 08:28 40 MG Potassium Chloride (Klor-Con M10) 20 meq DAILY PO 10/24/17 09:00 11/23/17 08:59 10/25/17 08:27 20 MEQ Tamsulosin HCl (Flomax Cap) 0.4 mg DAILY PO 10/24/17 09:00 11/23/17 08:59 10/25/17 08:27 0.4 MG Tramadol HCl (Ultram Tab) 50 mg Q6H PRN PO 10/23/17 23:15 11/22/17 23:14 10/25/17 19:56 50 MG Miscellaneous Information (Order Awaiting Action) 1 ea QS N/A 10/24/17 00:00 11/23/17 00:00 Miscellaneous Information (Order Awaiting Action) 1 ea QS N/A 10/24/17 08:00 11/23/17 07:59 Piperacillin Sod/ Tazobactam Sod 3.375 gm/Dextrose 115 ml @ 28.75 mls/ hr Q8H IV 10/24/17 04:00 10/31/17 03:59 10/26/17 05:22 28.75 MLS/HR Albuterol/ Ipratropium (Duoneb) 3 ml QIDR INH 10/24/17 08:00 11/23/17 07:59 10/26/17 07:21 3 ML Acetaminophen (Tylenol Tab) 650 mg Q4H PRN PO 10/23/17 23:30 11/22/17 23:29 10/24/17 21:36 650 MG Magnesium Hydroxide (Milk Of Magnesia Susp) 30 ml Q12H PRN PO 10/23/17 23:30 11/22/17 23:29 10/24/17 11:39 30 ML Ondansetron HCl (Zofran Inj) 4 mg Q6H PRN IV 10/23/17 23:30 11/22/17 23:29 10/25/17 10:16 4 MG Nicotine (Nicoderm Cq 21MG Patch) 1 patch QAM TD 10/24/17 09:00 11/23/17 08:59 10/25/17 08:29 1 PATCH Miscellaneous (Remove Nicoderm Patch) 1 ea HS N/A 10/24/17 21:00 11/23/17 20:59 10/25/17 19:57 1 EA Budesonide (Pulmicort Respules 0.5MG/ 2ML Neb Soln) 0.5 mg BIDR INH 10/24/17 01:15 11/23/17 01:14 10/25/17 20:05 0.5 MG Insulin Aspart (novoLOG ASPART) SLIDING SCALE G... ACHS SC 10/24/17 07:00 11/23/17 06:59 10/25/17 16:15 5 UNITS Glucose (Glucose 40% Gel) 15-30 GRAMS 15 GRAMS... UD PRN PO 10/24/17 02:00 11/23/17 01:59 Glucose (Glucose Chew Tab) 4-8 Tablets 4 Tabl... UD PRN PO 10/24/17 02:00 11/23/17 01:59 Dextrose (Dextrose 50% 50ML Syringe) 25-50ML OF 50% DW IV FOR... UD PRN IV 10/24/17 02:00 11/23/17 01:59 10/25/17 10:17 50 ML Glucagon (Glucagon Inj) 1 mg UD PRN SQ 10/24/17 02:00 11/23/17 01:59 Albuterol/ Ipratropium (Duoneb) 3 ml Q2H PRN INH 10/24/17 02:30 11/23/17 02:29 Miscellaneous (Iv Fluids Completed) 1 ea PRN PRN N/A 10/24/17 03:00 10/24/18 02:59 Piperacillin Sod/ Tazobactam Sod (Consult) 1 ea UD PRN N/A 10/24/17 08:30 10/31/17 08:29 Insulin Glargine (Lantus Solostar Pen) 15 units BID SC 10/24/17 21:00 11/23/17 20:59 Future Hold 10/24/17 20:22 15 UNITS Ioversol (Optiray 320) 111 ml UD PRN IV 10/25/17 19:45 10/29/17 19:44 Gadobutrol (Gadavist) 8.4 mmol UD PRN IV 10/25/17 23:30 10/29/17 23:29 Objective Vital Signs Date Time Temp Pulse Resp B/P (MAP) Pulse Ox O2 Delivery O2 Flow Rate FiO2 10/26/17 07:21 95 20 95 Nasal Cannula 4.0 10/26/17 04:00 93 Nasal Cannula 3.0 10/26/17 03:34 36.8 95 20 134/76 (95) 92 Nasal Cannula 3.5 10/26/17 00:00 93 Nasal Cannula 3.0 10/25/17 23:53 37.1 94 20 152/89 (110) 93 Nasal Cannula 3.5 10/25/17 20:42 93 Nasal Cannula 3.0 10/25/17 20:00 97 18 98 Nasal Cannula 3.0 10/25/17 19:59 36.7 87 21 145/73 (97) 92 Nasal Cannula 4.0 10/25/17 16:01 93 Nasal Cannula 3.0 10/25/17 15:57 37.0 85 18 117/67 (84) 91 Nasal Cannula 4.0 10/25/17 14:40 86 18 94 Nasal Cannula 3.0 10/25/17 13:25 86 24 132/72 (92) 94 Non-Rebreather 10.0 10/25/17 12:55 81 22 132/71 (91) 97 Non-Rebreather 10.0 10/25/17 12:30 81 22 114/69 (84) 94 Non-Rebreather 10.0 10/25/17 12:00 Non-Rebreather 10.0 10/25/17 11:50 37.0 79 24 113/66 (82) 92 Non-Rebreather 10.0 10/25/17 11:46 Mask 10/25/17 11:15 90 19 113/64 91 Mask 10 10/25/17 11:10 80 18 124/70 91 Mask 10 10/25/17 11:05 81 17 116/68 91 Mask 10 10/25/17 11:00 81 17 141/78 96 Mask 10 10/25/17 10:55 81 17 141/78 96 Mask 10 10/25/17 10:50 81 17 141/78 96 Mask 10 10/25/17 10:45 80 17 142/85 96 Mask 10 10/25/17 10:30 82 18 139/84 96 Mask 10 Physical Exam General Appearance: no apparent distress, + obese Respiratory/Chest: no respiratory distress, no accessory muscle use, + decreased breath sounds (right sided), + wheezing (R > L), + pertinent finding ( left sided tenderness to palpation) Cardiovascular: regular rate, rhythm, no murmur Abdomen: normal bowel sounds, non tender, soft Extremities: no pedal edema, no calf tenderness, normal capillary refill, + pertinent finding Neurologic/Psychiatric: benefits coordinator II-XII nml as tested, no motor/sensory deficits, alert Laboratory Results Test 10/25/17 20:27 10/26/17 07:20 Bedside Glucose 96 mg/dl (70-99) Assessment and Plan 77-year-old male with a past medical history of Severe COPD, Type 2 diabetes, hypertension, congestive heart failure, and CAD with CABG x 4, that presents as a transfer from [facility] for worsening shortness of breath. Acute on chronic Hypoxic Respiratory Failure secondary to right middle and lower lobe collapse from mass obstruction, possible pneumonia and COPD - Since he has minimal hypercapnia on ABG will aim to maintain O2 sats > 94% Stage IV Small cell lung cancer Right hilar mass obstructing bronchus intermedius with collapse of right middle and lower lobes - chemotherapy as per Dr Morales. Patient does not appear to have capacity to make this decision at present - will re-evaluate Right sided pleural effusion s/p thoracocentesis 10/24/17 - Malignant small cell neuroendocrine cells - gram stain negative, no growth to date Possible pneumonia - high risk as not aerating the bottom of his right lung - nothing grown on bronchoscopy or pleural fluid, as discussed with Dr Huff yesterday patient was stepped down to Zosyn for total 7 day course, if being discharged can be switched to Augmentin - follow up cultures - incentive spirometry, flutter valve, chest physio Severe COPD - On 2L O2 at home - Duonebs QIDR, then Q2H PRN for wheezing - Switch from Dulera to Pulmicort nebulizers - Wheezing most likely from mass obstruction rather than COPD Thoracic aortic aneurysm - saccular aneurysm distal descending 5 x 3.7 cm Abdominal aortic aneurysm - 5.3 x 5.9 cm - recommend against monitoring given overall poor prognosis and unlikely surgical candidate Type 2 Diabetes Mellitus - HbA1C 11.2 - Hold outpatient Sitagliptin - BSG AC and HS - Continue to hold Lantus this morning due to normal glucose levels. Continue sliding scale insulin: correction 25, carb ratio 8 (will need tighter control if starts on steroids) Diastolic congestive heart failure / Coronary artery disease / Hypertension / Hyperlipidemia - does not appear to be in acute failure - start aspirin, no benefit to statin given overall poor prognosis - continue metoprolol, losartan and ISMN - Stop fenofibrate as not recommended as lipid lowering medication (given increased overall mortality), patient has poor prognosis and no history of pancreatitis - takes lasix PRN outpatient - no current need for this now - ECHO LVEF 60-65%, small proximal inferoposterior wall akinetic region, diastolic dysfunction suggested - appreciate cardiology management Depression - Continue home Doxepin and Lexapro BPH - Continue Tamsulosin Chronic Pain - Continue Tramadol 50mg q6h PRN - Hold meloxicam as awaiting bronchoscopy Smoking Cessation - Nicotine Patch 21mg qAM VTE Prophylaxis - SCDs - Start heparin 5000 units SQ Q8H Code Status - DNR Disposition - once respiratory status stable will transfer to med/surg. Resident Tracking Resident Involvement: Resident Care Provided Care Provided: Adult Hospital Medicine Reviewed: Pt Seen/Exam by Me History comfortable in bed. coughed with phlegm. family at bedside denies any complain Constitutional: denies: fever Respiratory: negative: short of breath Cardiovascular: denies chest pain Gastrointestinal/Abdominal: negative: abdominal pain General Appearance: no apparent distress Respiratory: no respiratory distress, decreased breath sounds Cardiovascular: regular rate, rhythm Neurologic/Psychiatric: alert Skin Characteristics: warm/dry Assessment/Plan Resident Physician Supervision Note: I independently interviewed and examined the patient and verified the bryant history and physical, reviewed labs and image studies, discussed the case with the resident Dr. Rosas and agree with the findings and care plan.
[2017-10-26 08:33] LABS: CREATININE 0.82 mg/dl (0.60-1.40)
[2017-10-26] MEDS: FENOFIBRATE 145 MG TAB PO SCH (08:38)
[2017-10-26] MEDS: POTASSIUM CHLORIDE 10 MEQ TABCR PO SCH (08:38)
[2017-10-26] MEDS: TAMSULOSIN HCL 0.4 MG CAP PO SCH (08:38)
[2017-10-26] MEDS: NICOTINE 21 MG/24 HR TDSY TD SCH (08:38)
[2017-10-26] MEDS: PANTOprazole SOD 40 MG TAB PO SCH (08:38)
[2017-10-26] MEDS: ISOSORBIDE MONONITRATE 30 MG TABCR PO SCH (08:39)
[2017-10-26] MEDS: METOPROLOL SUCC 25MG EXT REL TAB PO SCH (08:39)
[2017-10-26] MEDS: ESCITALOPRAM OXALATE 20 MG TAB PO SCH (08:39)
[2017-10-26] MEDS: LOSARTAN POTASSIUM 25 MG TAB PO SCH (08:39)
[2017-10-26] MEDS: INSULIN ASPART 100 UNITS/ML 3 ML PEN SC SCH ×4 (08:43→21:46)
[2017-10-26 09:02] LABS: ALBUMIN 2.1 gm/dl (3.4-5.0); CALCIUM 8.8 mg/dl (8.5-10.1); CREATININE 0.87 mg/dl (0.60-1.40); POTASSIUM 3.8 mmol/L (3.5-5.1)
[2017-10-26 09:06] LABS: TOTAL PROTEIN 6.1 gm/dl (6.4-8.2)
[2017-10-26] MEDS ORDERED: HEPARIN SOD 5000 UNIT/0.5 ML CARP SQ ONE (09:30)
[2017-10-26] MEDS: TRAMADOL HCL 50 MG TAB PO PRN (09:49)
[2017-10-26 10:29] LABS: BASO % 0.2 %; BASO ABS # 0.03 K/uL (0-0.2); EOS % 1.3 %; EOS ABS # 0.18 K/uL (0-0.5); HEMATOCRIT 41.8 % (42-52); HEMOGLOBIN 13.7 g/dL (14.0-18.0); IG# 0.34 K/uL (0.00-0.02); LYMPH ABS # 1.54 K/uL (1.2-3.4); MEAN CELL VOLUME 90.7 fL (80-100); MEAN CORPUSCULAR HEMOGLOBIN 29.7 pg (25-34); MEAN CORPUSCULAR HGB CONC 32.8 g/dl (32-36); MEAN PLATELET VOLUME 9.9 fL (7.4-10.4); MONO % 11.7 %; MONO ABS # 1.63 K/uL (0.11-0.59); NEUT % 73.4 %; NEUT ABS # 10.26 K/uL (1.4-6.5); PLATELET COUNT 370 K/uL (130-400); RED CELL DISTRIBUTION WIDTH SD 49.4 fL (36.4-46.3); WHITE BLOOD COUNT 13.98 K/uL (4.8-10.8)
--- NOTE | 2017-10-26 14:28 | CARDIOLOGY PROGRESS NOTE ---
DATE: 10/26/2017 SUBJECTIVE: Mr. Noguera is resting comfortably in bed without complaints of chest pain or dyspnea. His cough has improved. He is anxious to start chemotherapy for his newly diagnosed lung malignancy. OBJECTIVE: VITAL SIGNS: Blood pressure 125/70 with a regular pulse of 86. Respiratory rate is 20 and the patient is afebrile at 36.9 degrees Celsius. Saturation is 93% on 4 liters nasal cannula. NECK: Supple with full carotid upstrokes. There are no carotid bruits. Jugular venous pressure is flat at 90 degrees. There is no thyromegaly. CARDIOVASCULAR: Reveals a regular rhythm with normal S1 and S2. Heart sounds are distant. No obvious murmurs. LUNGS: Notes diffuse expiratory and inspiratory wheezes. ABDOMEN: Soft without bruits. EXTREMITIES: Reveal intact radial artery pulses bilaterally. There is no edema. DATA: CBC notes a hemoglobin of 13.7, hematocrit 41.8, white count 13.9, and platelet count 370,000. Electrolytes note a sodium of 134, potassium 3.8, chloride 98, bicarb 27, BUN 12, creatinine 0.87, and glucose 98. ekg monitor tech notes sinus rhythm. IMPRESSION AND PLAN: 1. Coronary artery disease status post coronary artery bypass grafting x4. His complaints of chest discomfort do not likely represent angina pectoris. It may be related to his large lung mass. 2. Hypertension -- adequate control. 3. Chronic obstructive pulmonary disease. 4. Metastatic lung carcinoma -- chemotherapy per Dr. Morales. 5. Disposition -- stable for transfer to the floor.
[2017-10-26] MEDS: OXYCODONE HCL IR 5 MG TAB (IMMEDIATE RELEASE) PO PRN ×2 (14:54→20:18)
[2017-10-26] MEDS: HEPARIN SOD 5000 UNIT/0.5 ML CARP SQ SCH ×2 (14:57→21:47)
--- NOTE | 2017-10-26 15:24 | DIAGNOSTIC IMAGING REPORT ---
BONE SCAN WHOLE BODY CLINICAL HISTORY: Small-cell lung cancer, left shoulder pain, rule out bone mets. COMPARISON STUDY: CT of the chest October 24, [address] of the abdomen and pelvis October 25, 2017. TECHNIQUE: 27.4 mCi of technetium 99m MDP was injected IV at 11:15 AM on October 26, 2017. Flow body imaging was performed in the anterior and posterior projections 3 hours following injection. FINDINGS: Expected soft tissue and renal uptake is present. A focus of uptake projecting over the right shoulder is likely due to contamination. Uptake projecting of the right hand is due to contamination. A small focus of moderate radiotracer uptake within a right lower rib corresponds to a healing fracture on CT. There is a small focus of radiotracer uptake within a left posterior mid rib which is indeterminate. Uptake projecting over the lesser trochanter the right femur corresponds to heterotopic ossification/insertional calcification on CT. IMPRESSION: 1. Small indeterminate focus of mild radiotracer uptake within a left mid posterior rib. 2. No overtly suspicious radiotracer uptake. Electronically signed by: Fabian Zavala M.D. 10/26/2017 3:22 PM Dictated Date/Time: 10/26/2017 3:16 PM
[2017-10-26] MEDS ORDERED: ALLOPURINOL 300 MG TAB PO ONE (17:15)
--- NOTE | 2017-10-26 18:09 | Hematology/Oncology Prog Note ---
Hematology/Onc Progress Note Date of Service Oct 26, 2017. Subjective I saw him at bedside in the evening, several family members where once again present at bedside, I reviewed his medical records, no new symptoms, he is receiving oxen therapy required nasal cannula, 2 L per minute, hemodynamically he has remained stable, eating well, no nausea, no vomiting, feeling weak and tired which is expected. - Bone scan done on 10/26/2017 --> Some increased activity noted in the left made posteriorly. No other suspicious findings noted in the any other bones. - Brain MRI done on 10/25/2017 --> 4.1 x 3.3 x 3.6 cm peripheral enhancing lesion noted in the anterior right frontal region appears to be extraction and location, mild to moderate surrounding edema without any mass effect noted, this could be meningioma but requires CT scan for further evaluation. - CT scan of the abdomen and pelvis done on 10/25/2017 --> Multiple liver lesions suspicious for metastasis, scattered upper abdominal lymphadenopathy. Blood workup done on 10/26/2017: - WBC 13,900, H&H of 13.7/41.8, Platelet count of 370,000. - BUN/creatinine: 12/0.8, AST 63, ALT 31, alkaline phosphatase 92 - LDH --> 126 - Uric acid --> 3.9. I reviewed with the patient's family member regarding additional staging workup done in the last [address] scan of the head without intravenous contrast for further erosion of the right frontal region mass noted in the brain MRI. Bone scan does not show any significant bony metastases. He has stage IV disease (small-cell lung cancer) with involvement of the liver. Once again I discussed with the family member regarding treatment option in the form of systemic chemotherapy, treatment schedule, side effect profile, overall prognosis with and without the chemotherapy treatment. They would like to discuss among themselves and with the patient and then they will decide about whether we should proceed further chemotherapy are not at this time. Meanwhile will start allopurinol prophylaxis 300 mg once-a-day. If they agree for the chemotherapy, he will need port for upcoming chemotherapy. Chemotherapy treatment scheduled would be: - Carboplatin at AUC of 4 on day 1 - Etoposide at 80 mg/m2 daily for 3 days - prophylactic Neulasta 24 after the completion of the chemotherapy on day 4 - Repeating chemotherapy every 21 days. Because of his age, comorbid conditions and he lives about 1 1/2 hour from the [place], I would prefer that he should get 1st cycle of chemotherapy in the hospital. If her family member agrees about having comfort care, will initiate home hospice services in to provide supportive and symptom treatment at home. Discussed with the family member regarding advanced directive in the form of DNR /DNI and they agree for that. Will follow-up Sebastian Morales MD Hem/Onc Vital Signs Vital Signs Past 12 Hours Date Time Temp Pulse Resp B/P (MAP) Pulse Ox O2 Delivery O2 Flow Rate FiO2 10/26/17 16:00 Nasal Cannula 3.0 10/26/17 15:16 37.5 95 20 155/79 (104) 94 Nasal Cannula 2.0 10/26/17 12:00 Nasal Cannula 3.0 10/26/17 11:23 36.9 86 20 125/69 (87) 93 Nasal Cannula 4.0 10/26/17 11:18 72 20 96 Nasal Cannula 4.0 10/26/17 08:00 Nasal Cannula 3.0 10/26/17 07:21 95 20 95 Nasal Cannula 4.0
--- NOTE | 2017-10-26 21:19 | DIAGNOSTIC IMAGING REPORT ---
HEAD CT NONCONTRAST CT DOSE: 655.73 mGy.cm HISTORY: Abnormal brain MRI. meningioma vs. Met TECHNIQUE: Multiaxial CT images of the head were performed without the use of intravenous contrast. Automated exposure control was utilized for this study. A dose lowering technique was utilized adhering to the principles of ALARA. Comparison: Brain MRI 10/25/2017. Findings: Small amount of bubbly secretions within the maxillary mastoid air cells are clear. The calvarium and skull base are intact. There is again noted a 4.5 x 2.7 cm mass within the right frontal region. No associated calcification. This lesion is slightly hyperdense. There is patient edema within the right frontal lobe. There is no hyperostosis of the adjacent frontal bone. A few old lacunar infarcts seen within the bilateral basal ganglia. No significant midline shift. No acute hemorrhage identified. Impression: The right frontal 4.5 x 2.7 cm mass is again noted. This is indeterminate. No associated calcification to confirm a meningioma. Electronically signed by: Wilber Pennington M.D. 10/26/2017 9:18 PM Dictated Date/Time: 10/26/2017 9:14 PM
[2017-10-26] MEDS ORDERED: INSULIN GLARGINE SOLOSTAR 100 UNITS/ML 3 ML PEN SC ONE (21:31)
[2017-10-27] VITALS (13 sets, daily range): BP systolic 128–182; BP diastolic 68–90; PULSE 88–97; TEMP 37.1–37.8; O2SAT 90–94
[2017-10-27] MEDS: ALBUT/IPRATROP 3MG/0.5MG NEB 3 ML VIAL INH SCH ×5 (01:48→19:16)
[2017-10-27] MEDS: PIPERACILL/TAZOBAC IV 3.375 GM in DEXTROSE 5% 100ML 100 ML IV SCH ×3 (03:33→19:53)
[2017-10-27] MEDS: HEPARIN SOD 5000 UNIT/0.5 ML CARP SQ SCH ×3 (06:23→21:35)
[2017-10-27] MEDS: BUDESONIDE 0.5 MG/2 ML VIAL (PULMICORT) INH SCH ×2 (07:17→19:16)
[2017-10-27 07:29] LABS: BASO % 0.2 %; BASO ABS # 0.03 K/uL (0-0.2); EOS % 1.7 %; EOS ABS # 0.21 K/uL (0-0.5); HEMATOCRIT 40.7 % (42-52); HEMOGLOBIN 13.4 g/dL (14.0-18.0); IG# 0.34 K/uL (0.00-0.02); LYMPH ABS # 1.01 K/uL (1.2-3.4); MEAN CORPUSCULAR HEMOGLOBIN 29.6 pg (25-34); MEAN CORPUSCULAR HGB CONC 32.9 g/dl (32-36); MEAN PLATELET VOLUME 9.8 fL (7.4-10.4); MONO % 9.9 %; MONO ABS # 1.26 K/uL (0.11-0.59); NEUT % 77.5 %; NEUT ABS # 9.82 K/uL (1.4-6.5); PLATELET COUNT 343 K/uL (130-400); RED CELL DISTRIBUTION WIDTH CV 14.8 % (11.5-14.5); RED CELL DISTRIBUTION WIDTH SD 48.3 fL (36.4-46.3); WHITE BLOOD COUNT 12.67 K/uL (4.8-10.8)
[2017-10-27] MEDS: [UNRECOGNIZED DRUG - OTHER] SCH ×4 (08:00→23:55)
[2017-10-27] MEDS: AVODART~ORDER AWAITING ACTION SCH ×4 (08:00→23:55)
[2017-10-27 08:05] LABS: CALCIUM 8.7 mg/dl (8.5-10.1); CREATININE 0.81 mg/dl (0.60-1.40); POTASSIUM 3.7 mmol/L (3.5-5.1)
[2017-10-27] MEDS: NICOTINE 21 MG/24 HR TDSY TD SCH (08:40)
[2017-10-27] MEDS: ESCITALOPRAM OXALATE 20 MG TAB PO SCH (08:40)
[2017-10-27] MEDS: METOPROLOL SUCC 25MG EXT REL TAB PO SCH (08:41)
[2017-10-27] MEDS: TAMSULOSIN HCL 0.4 MG CAP PO SCH (08:41)
[2017-10-27] MEDS: LOSARTAN POTASSIUM 25 MG TAB PO SCH (08:41)
[2017-10-27] MEDS: POTASSIUM CHLORIDE 10 MEQ TABCR PO SCH (08:45)
[2017-10-27] MEDS: PANTOprazole SOD 40 MG TAB PO SCH (08:46)
[2017-10-27] MEDS: ISOSORBIDE MONONITRATE 30 MG TABCR PO SCH (08:46)
[2017-10-27] MEDS: ALLOPURINOL 300 MG TAB PO SCH (08:47)
[2017-10-27] MEDS: ASPIRIN 81 MG ECTAB PO SCH (08:48)
[2017-10-27] MEDS: ALBUT/IPRATROP 3MG/0.5MG NEB 3 ML VIAL INH PRN (08:54)
[2017-10-27] MEDS: INSULIN ASPART 100 UNITS/ML 3 ML PEN SC SCH ×4 (09:28→21:34)
[2017-10-27] MEDS ORDERED: LORAZEPAM 0.5 MG TAB ONE (12:41)
[2017-10-27] MEDS ORDERED: LORAZEPAM 0.5 MG TAB PO ONE (12:45)
--- NOTE | 2017-10-27 13:14 | Family Medicine Progress Note ---
Progress Note Date of Service Oct 27, 2017. Subjective Pt evaluation today including: conversation w/ patient, physical exam, chart review, lab review Pain: None Patient denies any pain at this time Still reports some shortness of breath No acute events overnight Nursing notes some intermittent anxiety Constitutional: No fever, No chills, No sweats, No weight loss Eyes: No worsening of vision, No eye pain, No redness, No discharge ENT: No nasal symptoms, No sore throat, No tinnitus Respiratory: + shortness of breath, + dyspnea at rest, No cough, No sputum, No wheezing Cardiovascular: No chest pain, No PND, No palpitations Breast: No change in shape, No nipple discharge, No breast pain Abdomen: No pain, No nausea, No vomiting, No diarrhea, No constipation Musculoskeletal: No joint pain, No muscle pain Male : No urinary frequency, No incontinence, No nocturia more than once/ night Neurologic: No weakness, No numbness/tingling, No vertigo Psychiatric: + anxiety, No depression symptoms, No anhedonism Heme: No clotting problems, No swollen lymph nodes, No night sweats Endo: No excessive thirst, No excessive urination Skin: No rash, No new/changing skin lesions, No color change Medications Current Inpatient Medications Medications (Trade) Dose Ordered Sig/Ramin Route Start Time Stop Time Status Last Admin Dose Admin Escitalopram Oxalate (Lexapro Tab) 20 mg DAILY PO 10/24/17 09:00 11/23/17 08:59 10/27/17 08:40 20 MG Isosorbide Mononitrate (Imdur Ext Rel Tab) 30 mg DAILY PO 10/24/17 09:00 11/23/17 08:59 10/27/17 08:46 30 MG Losartan Potassium (coZAAR TAB) 25 mg DAILY PO 10/24/17 09:00 11/23/17 08:59 10/27/17 08:41 25 MG Metoprolol Succinate (Toprol Xl Tab) 25 mg DAILY PO 10/24/17 09:00 11/23/17 08:59 10/27/17 08:41 25 MG Nitroglycerin (Nitrostat Tab) 0.4 mg PRN PRN UT 10/23/17 23:15 11/22/17 23:14 Pantoprazole Sodium (Protonix Tab) 40 mg DAILY PO 10/24/17 09:00 11/23/17 08:59 10/27/17 08:46 40 MG Potassium Chloride (Klor-Con M10) 20 meq DAILY PO 10/24/17 09:00 11/23/17 08:59 10/27/17 08:45 20 MEQ Tamsulosin HCl (Flomax Cap) 0.4 mg DAILY PO 10/24/17 09:00 11/23/17 08:59 10/27/17 08:41 0.4 MG Tramadol HCl (Ultram Tab) 50 mg Q6H PRN PO 10/23/17 23:15 11/22/17 23:14 10/26/17 09:49 50 MG Miscellaneous Information (Order Awaiting Action) 1 ea QS N/A 10/24/17 00:00 11/23/17 00:00 Miscellaneous Information (Order Awaiting Action) 1 ea QS N/A 10/24/17 08:00 11/23/17 07:59 Piperacillin Sod/ Tazobactam Sod 3.375 gm/Dextrose 115 ml @ 28.75 mls/ hr Q8H IV 10/24/17 04:00 10/31/17 03:59 10/27/17 12:28 28.75 MLS/HR Albuterol/ Ipratropium (Duoneb) 3 ml QIDR INH 10/24/17 08:00 11/23/17 07:59 10/27/17 11:28 3 ML Acetaminophen (Tylenol Tab) 650 mg Q4H PRN PO 10/23/17 23:30 11/22/17 23:29 10/24/17 21:36 650 MG Magnesium Hydroxide (Milk Of Magnesia Susp) 30 ml Q12H PRN PO 10/23/17 23:30 11/22/17 23:29 10/24/17 11:39 30 ML Ondansetron HCl (Zofran Inj) 4 mg Q6H PRN IV 10/23/17 23:30 11/22/17 23:29 10/25/17 10:16 4 MG Nicotine (Nicoderm Cq 21MG Patch) 1 patch QAM TD 10/24/17 09:00 11/23/17 08:59 10/27/17 08:40 1 PATCH Miscellaneous (Remove Nicoderm Patch) 1 ea HS N/A 10/24/17 21:00 2/9/18 20:59 10/26/17 21:24 1 EA Budesonide (Pulmicort Respules 0.5MG/ 2ML Neb Soln) 0.5 mg BIDR INH 10/24/17 01:15 11/23/17 01:14 10/27/17 07:17 0.5 MG Insulin Aspart (novoLOG ASPART) SLIDING SCALE G... ACHS SC 10/24/17 07:00 11/23/17 06:59 10/27/17 12:31 5 UNITS Glucose (Glucose 40% Gel) 15-30 GRAMS 15 GRAMS... UD PRN PO 10/24/17 02:00 11/23/17 01:59 Glucose (Glucose Chew Tab) 4-8 Tablets 4 Tabl... UD PRN PO 10/24/17 02:00 11/23/17 01:59 Dextrose (Dextrose 50% 50ML Syringe) 25-50ML OF 50% DW IV FOR... UD PRN IV 10/24/17 02:00 11/23/17 01:59 10/25/17 10:17 50 ML Glucagon (Glucagon Inj) 1 mg UD PRN SQ 10/24/17 02:00 11/23/17 01:59 Albuterol/ Ipratropium (Duoneb) 3 ml Q2H PRN INH 10/24/17 02:30 11/23/17 02:29 10/27/17 08:54 3 ML Miscellaneous (Iv Fluids Completed) 1 ea PRN PRN N/A 10/24/17 03:00 10/24/18 02:59 Piperacillin Sod/ Tazobactam Sod (Consult) 1 ea UD PRN N/A 10/24/17 08:30 10/31/17 08:29 Ioversol (Optiray 320) 111 ml UD PRN IV 10/25/17 19:45 10/29/17 19:44 Gadobutrol (Gadavist) 8.4 mmol UD PRN IV 10/25/17 23:30 10/29/17 23:29 Heparin Sodium (Porcine) (Heparin Sq 5000 Unit/0.5ml) 5,000 unit Q8 SQ 10/26/17 14:00 11/25/17 13:59 10/27/17 06:23 5,000 UNIT Oxycodone HCl (Roxicodone Immediate Rel Tab) 5 mg Q4H PRN PO 10/26/17 14:00 11/09/17 13:59 10/26/17 20:18 5 MG Allopurinol (Zyloprim Tab) 300 mg QAM PO 10/27/17 08:00 11/26/17 08:59 10/27/17 08:47 300 MG Aspirin (Ecotrin Tab) 81 mg QAM PO 10/27/17 08:00 11/26/17 07:59 10/27/17 08:48 81 MG Insulin Glargine (Lantus Solostar Pen) 15 units QPM SC 10/27/17 21:00 11/26/17 20:59 Objective Vital Signs Date Time Temp Pulse Resp B/P (MAP) Pulse Ox O2 Delivery O2 Flow Rate FiO2 10/27/17 11:47 37.3 88 20 128/68 (88) 94 5.0 10/27/17 11:28 96 20 93 Nasal Cannula 5.0 10/27/17 08:54 94 20 91 Nasal Cannula 5.0 10/27/17 08:00 Nasal Cannula 5.0 10/27/17 07:54 37.5 93 20 166/77 (106) 90 5.0 10/27/17 07:16 92 20 93 Nasal Cannula 5.0 10/27/17 03:57 37.1 93 20 182/90 (120) 94 Nasal Cannula 6.0 10/27/17 01:48 89 20 92 Nasal Cannula 5.0 10/27/17 00:09 37.6 90 18 160/85 (110) 91 Nasal Cannula 5.0 10/26/17 23:00 93 Nasal Cannula 4.0 10/26/17 21:00 92 Nasal Cannula 4.0 10/26/17 20:39 37.5 86 22 157/71 (99) 92 Nasal Cannula 5.0 10/26/17 19:46 93 20 95 Nasal Cannula 4.0 10/26/17 19:08 37.2 84 18 151/70 (97) 87 Nasal Cannula 3.5 10/26/17 16:00 Nasal Cannula 3.0 10/26/17 15:16 37.5 95 20 155/79 (104) 94 Nasal Cannula 2.0 10/26/17 15:11 78 20 96 Nasal Cannula 4.0 Physical Exam General Appearance: WD/WN, no apparent distress Eyes: normal inspection, EOMI ENT: hearing grossly normal, pharynx normal Neck: supple, no adenopathy, no JVD Respiratory/Chest: lungs clear, no respiratory distress Cardiovascular: regular rate, rhythm, no gallop, no murmur Abdomen: normal bowel sounds, non tender, soft Extremities: non-tender, no pedal edema Neurologic/Psychiatric: alert, normal mood/affect Skin: normal color, warm/dry, no rash Lymphatic: no adenopathy Laboratory Results Last 24 Hours Test 10/26/17 16:20 10/26/17 20:06 10/27/17 07:02 10/27/17 07:47 Bedside Glucose 262 mg/dl 230 mg/dl 169 mg/dl White Blood Count 12.67 K/uL Red Blood Count 4.52 M/uL Hemoglobin 13.4 g/dL Hematocrit 40.7 % Mean Corpuscular Volume 90.0 fL Mean Corpuscular Hemoglobin 29.6 pg Mean Corpuscular Hemoglobin Concent 32.9 g/dl Platelet Count 343 K/uL Mean Platelet Volume 9.8 fL Neutrophils (%) (Auto) 77.5 % Lymphocytes (%) (Auto) 8.0 % Monocytes (%) (Auto) 9.9 % Eosinophils (%) (Auto) 1.7 % Basophils (%) (Auto) 0.2 % Neutrophils # (Auto) 9.82 K/uL Lymphocytes # (Auto) 1.01 K/uL Monocytes # (Auto) 1.26 K/uL Eosinophils # (Auto) 0.21 K/uL Basophils # (Auto) 0.03 K/uL RDW Standard Deviation 48.3 fL RDW Coefficient of Variation 14.8 % Immature Granulocyte % (Auto) 2.7 % Immature Granulocyte # (Auto) 0.34 K/uL Sodium Level 135 mmol/L Potassium Level 3.7 mmol/L Chloride Level 98 mmol/L Carbon Dioxide Level 29 mmol/L Anion Gap 8.0 mmol/L Blood Urea Nitrogen 10 mg/dl Creatinine 0.81 mg/dl Est Creatinine Clear Calc Drug Dose 78.6 ml/min Estimated GFR () 99.4 Estimated GFR (Non- 85.7 BUN/Creatinine Ratio 12.3 Random Glucose 175 mg/dl Calcium Level 8.7 mg/dl Test 10/27/17 11:42 Bedside Glucose 200 mg/dl Assessment and Plan 77-year-old male with a past medical history of Severe COPD, Type 2 diabetes, hypertension, congestive heart failure, and CAD with CABG x 4, that presents as a transfer from [facility] for worsening shortness of breath. Acute on chronic Hypoxic Respiratory Failure secondary to right middle and lower lobe collapse from mass obstruction, possible pneumonia and COPD - Since he has minimal hypercapnia on ABG will aim to maintain O2 sats > 94% Stage IV Small cell lung cancer Right hilar mass obstructing bronchus intermedius with collapse of right middle and lower lobes - Next step would be palliative chemotherapy - Discussed at the bedside with the patient; per my review of the notes, re- affirmed diagnosis and discussed the possibility of pursuing chemotherapy versus going home with hospice/comfort care. Re-iterated to patient to think about what his goals of care would be. He does not have any substitute decision makers but does seek consult from family members. I will revisit bedside this afternoon to discuss further with the patient. - Continue Allopurinol prophylaxis Right sided pleural effusion s/p thoracocentesis 10/24/17 - Malignant small cell neuroendocrine cells - gram stain negative, no growth to date Pneumonia - Continue Zosyn, requires 7 day course - If decision to be discharged home, patient can be discharged on Augmentin - Duonebs as needed - Remains hypoxic today, requiring 5 L Oxygen by nasal cannula. - follow up cultures - incentive spirometry, flutter valve, chest physio Severe COPD - On 2L O2 at home - Duonebs QIDR, then Q2H PRN for wheezing - Switch from Dulera to Pulmicort nebulizers - Wheezing most likely from mass obstruction rather than COPD Thoracic aortic aneurysm - saccular aneurysm distal descending 5 x 3.7 cm Abdominal aortic aneurysm - 5.3 x 5.9 cm - recommend against monitoring given overall poor prognosis and unlikely surgical candidate Type 2 Diabetes Mellitus - HbA1C 11.2 - Hold outpatient Sitagliptin - BSG AC and HS - Lantus 15 units. Correction factor 20, carb ratio 8 Diastolic congestive heart failure / Coronary artery disease / Hypertension / Hyperlipidemia - does not appear to be in acute failure - start aspirin, no benefit to statin given overall poor prognosis - continue metoprolol, losartan and ISMN - Stop fenofibrate as not recommended as lipid lowering medication (given increased overall mortality), patient has poor prognosis and no history of pancreatitis - takes lasix PRN outpatient - no current need for this now - ECHO LVEF 60-65%, small proximal inferoposterior wall akinetic region, diastolic dysfunction suggested - appreciate cardiology management Depression - Continue home Doxepin and Lexapro BPH - Continue Tamsulosin Chronic Pain - Continue Tramadol 50mg q6h PRN - Hold meloxicam as awaiting bronchoscopy Smoking Cessation - Nicotine Patch 21mg qAM VTE Prophylaxis - SCDs - Start heparin 5000 units SQ Q8H Code Status - DNR Disposition - once respiratory status stable will transfer to med/surg. Reviewed: Pt Seen/Exam by Me History laying in bed - during visit- became short of breath due to inability to cough up phlegm. Constitutional: denies: fever Cardiovascular: denies chest pain Gastrointestinal/Abdominal: negative: abdominal pain General Appearance: mild distress Respiratory: decreased breath sounds, rhonchi Cardiovascular: regular rate, rhythm Neurologic/Psychiatric: alert Skin Characteristics: warm/dry Assessment/Plan Resident Physician Supervision Note: I independently interviewed and examined the patient and verified the bryant history and physical, reviewed labs and image studies, discussed the case with the resident Dr. Bianchi and agree with the findings and care plan.
[2017-10-27] MEDS: OXYCODONE HCL IR 5 MG TAB (IMMEDIATE RELEASE) PO PRN (14:10)
[2017-10-27] MEDS: MoRPHine SULFATE 2 MG/ML CARP IV PRN ×2 (17:53→22:21)
[2017-10-27] MEDS ORDERED: INSULIN GLARGINE SOLOSTAR 100 UNITS/ML 3 ML PEN SC SCH ×2 (21:00)
[2017-10-27] MEDS: ACETAMINOPHEN 325 MG TAB PO PRN (23:56)
[2017-10-28] VITALS (17 sets, daily range): BP systolic 138–209; BP diastolic 75–109; PULSE 83–109; TEMP 36.6–37.7; O2SAT 85–96
[2017-10-28] MEDS: MoRPHine SULFATE 2 MG/ML CARP IV PRN ×4 (00:53→10:30)
[2017-10-28] MEDS: PIPERACILL/TAZOBAC IV 3.375 GM in DEXTROSE 5% 100ML 100 ML IV SCH ×3 (04:39→19:48)
[2017-10-28] MEDS: INSULIN ASPART 100 UNITS/ML 3 ML PEN SC SCH ×4 (05:45→21:06)
[2017-10-28] MEDS: HEPARIN SOD 5000 UNIT/0.5 ML CARP SQ SCH ×3 (06:07→21:06)
[2017-10-28 06:08] LABS: BASO % 0.2 %; BASO ABS # 0.03 K/uL (0-0.2); EOS % 0.6 %; EOS ABS # 0.08 K/uL (0-0.5); HEMATOCRIT 39.8 % (42-52); HEMOGLOBIN 13.3 g/dL (14.0-18.0); IG# 0.46 K/uL (0.00-0.02); LYMPH % 7.3 %; LYMPH ABS # 0.96 K/uL (1.2-3.4); MEAN CORPUSCULAR HEMOGLOBIN 30.1 pg (25-34); MEAN CORPUSCULAR HGB CONC 33.4 g/dl (32-36); MEAN PLATELET VOLUME 9.7 fL (7.4-10.4); MONO % 7.6 %; NEUT % 80.8 %; NEUT ABS # 10.59 K/uL (1.4-6.5); PLATELET COUNT 305 K/uL (130-400); RED CELL DISTRIBUTION WIDTH CV 14.6 % (11.5-14.5); WHITE BLOOD COUNT 13.12 K/uL (4.8-10.8)
[2017-10-28 06:48] LABS: CALCIUM 8.7 mg/dl (8.5-10.1); CREATININE 0.73 mg/dl (0.60-1.40); POTASSIUM 3.9 mmol/L (3.5-5.1)
[2017-10-28] MEDS: ALBUT/IPRATROP 3MG/0.5MG NEB 3 ML VIAL INH SCH ×5 (07:42→19:26)
[2017-10-28] MEDS: BUDESONIDE 0.5 MG/2 ML VIAL (PULMICORT) INH SCH ×2 (07:42→19:26)
[2017-10-28] MEDS: ESCITALOPRAM OXALATE 20 MG TAB PO SCH (07:45)
[2017-10-28] MEDS: ALLOPURINOL 300 MG TAB PO SCH (07:45)
[2017-10-28] MEDS: ISOSORBIDE MONONITRATE 30 MG TABCR PO SCH (07:45)
[2017-10-28] MEDS: NICOTINE 21 MG/24 HR TDSY TD SCH (07:45)
[2017-10-28] MEDS: ASPIRIN 81 MG ECTAB PO SCH (07:45)
[2017-10-28] MEDS: METOPROLOL SUCC 25MG EXT REL TAB PO SCH (07:46)
[2017-10-28] MEDS: POTASSIUM CHLORIDE 10 MEQ TABCR PO SCH (07:46)
[2017-10-28] MEDS: TAMSULOSIN HCL 0.4 MG CAP PO SCH (07:46)
[2017-10-28] MEDS: LOSARTAN POTASSIUM 25 MG TAB PO SCH (07:46)
[2017-10-28] MEDS: PANTOprazole SOD 40 MG TAB PO SCH (07:46)
[2017-10-28] MEDS: AVODART~ORDER AWAITING ACTION SCH (08:00)
[2017-10-28] MEDS: [UNRECOGNIZED DRUG - OTHER] SCH ×2 (08:00→15:18)
--- NOTE | 2017-10-28 08:48 | Surgery Consultation ---
Consultation Date of Consultation: Oct 28, 2017. Attending Physician: Kev Rosas MD History of Present Illness The patient is a 77-year-old male with a past medical history of End Stage COPD , Type 2 diabetes, hypertension, congestive heart failure, and CAD with CABG x 4 , that presents as a transfer from [facility] for worsening shortness of breath and pneumonia. The patient was initially evaluated 3 days ago with cough and dyspnea and was sent on chest x-ray to have a right sided lung consolidation. The patient was started on by mouth Levaquin and discharged home. Earlier today the patient returned to the hospital with worsening shortness of breath and increased work of breathing. The patient states that he has had this cough for the last month, and it has recently become productive of clear sputum. He denies any fevers or chills during this time but states that in the hospital he is started to develop some sweats. The patient is normally on 2 L of oxygen at home, and currently smokes 2 packs per day which is how much she has been smoking for an extensive period of time. The patient also states that he has been having left sided pain around his abdomen and flank for the last month as well along with this cough. At [facility] his chest x-ray showed a questionable mass or infiltrate that had changed in size from a few years ago, and due to concern of the worsening pulmonary status of the patient with the concerning chest x-ray findings the patient was transferred to [facility]. His PCP is Mica Lacey in [place], [place] I got a call fot consult port insertion for chemo therapy, I reviewed pt's H/P with pt, pt denies chest pain now, no fever, Social History Smoking Status: Former Smoker (2 packs per day. Pt states he quit 1 month ago.) Smokeless Tobacco Use: No Alcohol Use: none Drug Use: none Occupation Status: retired Allergies Coded Allergies: Cortisone (Verified Allergy, Unknown, unknown, 10/23/17) Home Medications Scheduled Dutasteride (Avodart), 0.5 MG PO DAILY Escitalopram Oxalate (Lexapro), 20 MG PO DAILY Fenofibrate (Tricor ), 1 TAB PO DAILY Isosorbide Mononitrate Ext Rel (Imdur Ext Rel), 1 TAB PO DAILY Levofloxacin (Levaquin), 500 MG PO DAILY Losartan Potassium (Cozaar), 1 TAB PO DAILY Meloxicam (Mobic), 15 MG PO DAILY Metoprolol Succinate (Toprol Xl), 1 TAB PO DAILY Mometasone Furoate-Formoterol (Dulera 200/5 Mcg), 1 AER INH BID Pantoprazole (Protonix), 1 TAB PO DAILY Potassium Chloride (Micro-K Ext Rel), 20 MEQ PO DAILY Sitagliptin Phosphate (Januvia), 100 MG PO DAILY Tamsulosin Hcl (Flomax), 0.4 MG PO DAILY Scheduled PRN Albuterol Sulf (Ventolin), 2 NEB QID PRN for Shortness of Breath Furosemide (Lasix), 40 MG PO DAILY PRN for edema Ipratropium-Albuterol (Duoneb), 1 TREATMENT INH Q4H PRN for Shortness of Breath Nitroglycerin (Nitrostat), 0.4 MG UT PRN PRN for Chest Pain Tramadol (Ultram), 50 MG PO Q6H PRN for Pain Miscellaneous Medications Doxepin (Sinequan), 3 MG PO Current Inpatient Medications Current Inpatient Medications Medications (Trade) Dose Ordered Sig/Ramin Route Start Time Stop Time Status Last Admin Dose Admin Escitalopram Oxalate (Lexapro Tab) 20 mg DAILY PO 10/24/17 09:00 11/23/17 08:59 10/28/17 07:45 20 MG Isosorbide Mononitrate (Imdur Ext Rel Tab) 30 mg DAILY PO 10/24/17 09:00 11/23/17 08:59 10/28/17 07:45 30 MG Losartan Potassium (coZAAR TAB) 25 mg DAILY PO 10/24/17 09:00 11/23/17 08:59 10/28/17 07:46 25 MG Metoprolol Succinate (Toprol Xl Tab) 25 mg DAILY PO 10/24/17 09:00 11/23/17 08:59 10/28/17 07:46 25 MG Nitroglycerin (Nitrostat Tab) 0.4 mg PRN PRN UT 10/23/17 23:15 11/22/17 23:14 Pantoprazole Sodium (Protonix Tab) 40 mg DAILY PO 10/24/17 09:00 11/23/17 08:59 10/28/17 07:46 40 MG Potassium Chloride (Klor-Con M10) 20 meq DAILY PO 10/24/17 09:00 11/23/17 08:59 10/28/17 07:46 20 MEQ Tamsulosin HCl (Flomax Cap) 0.4 mg DAILY PO 10/24/17 09:00 11/23/17 08:59 10/28/17 07:46 0.4 MG Tramadol HCl (Ultram Tab) 50 mg Q6H PRN PO 10/23/17 23:15 11/22/17 23:14 10/26/17 09:49 50 MG Miscellaneous Information (Order Awaiting Action) 1 ea QS N/A 10/24/17 00:00 11/23/17 00:00 Miscellaneous Information (Order Awaiting Action) 1 ea QS N/A 10/24/17 08:00 11/23/17 07:59 Piperacillin Sod/ Tazobactam Sod 3.375 gm/Dextrose 115 ml @ 28.75 mls/ hr Q8H IV 10/24/17 04:00 10/31/17 03:59 10/28/17 04:39 28.75 MLS/HR Albuterol/ Ipratropium (Duoneb) 3 ml QIDR INH 10/24/17 08:00 11/23/17 07:59 10/28/17 07:42 3 ML Acetaminophen (Tylenol Tab) 650 mg Q4H PRN PO 10/23/17 23:30 11/22/17 23:29 10/27/17 23:56 650 MG Magnesium Hydroxide (Milk Of Magnesia Susp) 30 ml Q12H PRN PO 10/23/17 23:30 11/22/17 23:29 10/24/17 11:39 30 ML Ondansetron HCl (Zofran Inj) 4 mg Q6H PRN IV 10/23/17 23:30 11/22/17 23:29 10/25/17 10:16 4 MG Nicotine (Nicoderm Cq 21MG Patch) 1 patch QAM TD 10/24/17 09:00 11/23/17 08:59 10/28/17 07:45 1 PATCH Miscellaneous (Remove Nicoderm Patch) 1 ea HS N/A 10/24/17 21:00 11/23/17 20:59 10/27/17 21:00 1 EA Budesonide (Pulmicort Respules 0.5MG/ 2ML Neb Soln) 0.5 mg BIDR INH 10/24/17 01:15 11/23/17 01:14 10/28/17 07:42 0.5 MG Insulin Aspart (novoLOG ASPART) SLIDING SCALE G... ACHS SC 10/24/17 07:00 11/23/17 06:59 10/27/17 21:34 4 UNITS Glucose (Glucose 40% Gel) 15-30 GRAMS 15 GRAMS... UD PRN PO 10/24/17 02:00 11/23/17 01:59 Glucose (Glucose Chew Tab) 4-8 Tablets 4 Tabl... UD PRN PO 10/24/17 02:00 11/23/17 01:59 Dextrose (Dextrose 50% 50ML Syringe) 25-50ML OF 50% DW IV FOR... UD PRN IV 10/24/17 02:00 11/23/17 01:59 10/25/17 10:17 50 ML Glucagon (Glucagon Inj) 1 mg UD PRN SQ 10/24/17 02:00 11/23/17 01:59 Albuterol/ Ipratropium (Duoneb) 3 ml Q2H PRN INH 10/24/17 02:30 11/23/17 02:29 10/27/17 08:54 3 ML Miscellaneous (Iv Fluids Completed) 1 ea PRN PRN N/A 10/24/17 03:00 10/24/18 02:59 Piperacillin Sod/ Tazobactam Sod (Consult) 1 ea UD PRN N/A 10/24/17 08:30 10/31/17 08:29 Ioversol (Optiray 320) 111 ml UD PRN IV 10/25/17 19:45 10/29/17 19:44 Gadobutrol (Gadavist) 8.4 mmol UD PRN IV 10/25/17 23:30 10/29/17 23:29 Heparin Sodium (Porcine) (Heparin Sq 5000 Unit/0.5ml) 5,000 unit Q8 SQ 10/26/17 14:00 11/25/17 13:59 10/28/17 06:07 5,000 UNIT Oxycodone HCl (Roxicodone Immediate Rel Tab) 5 mg Q4H PRN PO 10/26/17 14:00 11/09/17 13:59 10/27/17 14:10 5 MG Allopurinol (Zyloprim Tab) 300 mg QAM PO 10/27/17 08:00 11/26/17 08:59 10/28/17 07:45 300 MG Aspirin (Ecotrin Tab) 81 mg QAM PO 10/27/17 08:00 11/26/17 07:59 10/28/17 07:45 81 MG Morphine Sulfate (MoRPHine SULFATE INJ) 1 mg Q2H PRN IV 10/27/17 15:30 11/10/17 15:29 10/28/17 07:33 1 MG Insulin Glargine (Lantus Solostar Pen) 20 units QPM SC 10/28/17 21:00 11/26/17 20:59 Review of Systems Constitutional: No fever, No chills, No sweats, No weight loss, No weakness, No fatigue, No problem reported Eyes: No worsening of vision, No eye pain, No redness, No discharge, No diplopia, No problem reported ENT: No hearing loss, No unusual epistaxis, No nasal symptoms, No sore throat, No tinnitus, No dental problems, No trouble swallowing, No problem reported Respiratory: + problem reported (COPD) Cardiovascular: + chest pain, + problem reported (CABG x 4, CHF, HTN) Abdomen: No pain, No nausea, No vomiting, No diarrhea, No constipation, No GI bleeding, No problem reported Neurologic: No memory loss, No paralysis, No weakness, No numbness/tingling, No vertigo, No balance problems, No problem reported Psychiatric: No depression symptoms, No anhedonism, No anxiety, No insomnia, No substance abuse, No problem reported Endocrine: + problem reported (DM), No fatigue, No excessive thirst, No excessive urination Hematologic / Lymphatic: No abnormal bleeding/bruising, No clotting problems, No swollen lymph nodes, No night sweats, No problem reported Physical Exam Date Time Temp Pulse Resp B/P (MAP) Pulse Ox O2 Delivery O2 Flow Rate FiO2 10/28/17 08:11 36.6 94 20 203/109 (140) 93 6.0 209/96 (133) 10/28/17 07:54 182/103 (129) 10/28/17 07:49 83 20 95 Nasal Cannula 5.0 1/14/18 03:58 37.3 88 19 138/79 (98) 95 Nasal Cannula 5.0 10/28/17 00:52 37.7 97 22 143/76 (98) 92 Nasal Cannula 6.0 10/28/17 00:00 90 Nasal Cannula 6.0 10/27/17 20:00 91 Nasal Cannula 5.0 10/27/17 19:16 88 20 92 Nasal Cannula 5.0 10/27/17 19:13 37.8 93 24 162/79 (106) 91 Nasal Cannula 5.0 10/27/17 16:00 Nasal Cannula 5.0 10/27/17 15:30 97 20 92 Nasal Cannula 5.0 10/27/17 15:15 97 32 180/86 (117) 91 Nasal Cannula 5.0 10/27/17 11:47 37.3 88 20 128/68 (88) 94 5.0 10/27/17 11:28 96 20 93 Nasal Cannula 5.0 10/27/17 08:54 94 20 91 Nasal Cannula 5.0 blind General Appearance: WD/WN, no apparent distress Head: normocephalic Eyes: normal inspection ENT: normal ENT inspection Neck: supple Respiratory/Chest: chest non-tender, lungs clear Cardiovascular: regular rate, rhythm, no edema, no gallop, no JVD Abdomen/GI: normal bowel sounds, non tender, soft, no organomegaly Extremities/Musculoskelatal: normal inspection, no calf tenderness, normal capillary refill Neurologic/Psych: no motor/sensory deficits, alert, normal mood/affect Skin: normal color, warm/dry, no rash Laboratory Results Last 24 Hours Test 10/27/17 11:42 10/27/17 16:58 10/27/17 20:29 10/28/17 05:51 Bedside Glucose 200 mg/dl 174 mg/dl White Blood Count 13.12 K/uL Red Blood Count 4.42 M/uL Hemoglobin 13.3 g/dL Hematocrit 39.8 % Mean Corpuscular Volume 90.0 fL Mean Corpuscular Hemoglobin 30.1 pg Mean Corpuscular Hemoglobin Concent 33.4 g/dl Platelet Count 305 K/uL Mean Platelet Volume 9.7 fL Neutrophils (%) (Auto) 80.8 % Lymphocytes (%) (Auto) 7.3 % Monocytes (%) (Auto) 7.6 % Eosinophils (%) (Auto) 0.6 % Basophils (%) (Auto) 0.2 % Neutrophils # (Auto) 10.59 K/uL Lymphocytes # (Auto) 0.96 K/uL Monocytes # (Auto) 1.00 K/uL Eosinophils # (Auto) 0.08 K/uL Basophils # (Auto) 0.03 K/uL RDW Standard Deviation 48.0 fL RDW Coefficient of Variation 14.6 % Immature Granulocyte % (Auto) 3.5 % Immature Granulocyte # (Auto) 0.46 K/uL Sodium Level 135 mmol/L Potassium Level 3.9 mmol/L Chloride Level 97 mmol/L Carbon Dioxide Level 32 mmol/L Anion Gap 6.0 mmol/L Blood Urea Nitrogen 10 mg/dl Creatinine 0.73 mg/dl Est Creatinine Clear Calc Drug Dose 87.4 ml/min Estimated GFR () 103.7 Estimated GFR (Non- 89.5 BUN/Creatinine Ratio 13.1 Random Glucose 118 mg/dl Calcium Level 8.7 mg/dl Test 10/28/17 07:40 Bedside Glucose 95 mg/dl Assessment & Plan The patient is a 77-year-old male with a past medical history of End Stage COPD , Type 2 diabetes, hypertension, congestive heart failure, and CAD with CABG x 4 , that presents as a transfer from [facility] for worsening shortness of breath and pneumonia. The patient was initially evaluated 7 days ago with cough and dyspnea and was sent on chest x-ray to have a right sided lung consolidation. Plan: pt will have port insertion on 11:00AM 10/31/2017, D/W benefits, risks and alternatives of the procedure, the risks -infection, bleeding, injury lung, blood clot, dysfunction of catheter, , VA, DVT, PE, pt understood, hold Heparin 6 hours before surgery, NPO from [place] 10/30/2016
--- NOTE | 2017-10-28 11:14 | DIAGNOSTIC IMAGING REPORT ---
CHEST ONE VIEW PORTABLE HISTORY: increased congestion and O2 demand COMPARISON: Chest CT 10/24/2017. Chest x-ray 10/24/2017. FINDINGS: No change in the dense consolidation within the right mid to lower lung zone with right lung interstitial thickening. Small right pleural effusion persist. The heart is normal in size. Mild interstitial thickening at left lung base, unchanged. No pneumothorax. Poststernotomy changes. Mild volume loss within the right hemithorax. IMPRESSION: No change compared the prior studies. Dense consolidation within the right mid to lower lung zone likely corresponds the patient's known hilar mass and partial collapse of the right middle and lower lobes. Small right pleural effusion, unchanged. Electronically signed by: Wilber Pennington M.D. 10/28/2017 11:13 AM Dictated Date/Time: 10/28/2017 11:11 AM
[2017-10-28] MEDS: OXYCODONE HCL IR 5 MG TAB (IMMEDIATE RELEASE) PO PRN ×3 (12:58→20:20)
--- NOTE | 2017-10-28 13:11 | Family Medicine Progress Note ---
Progress Note Date of Service Oct 28, 2017. Subjective Pt evaluation today including: conversation w/ patient, physical exam, chart review, lab review Pain: None Voiding: no voiding problems, no incontinence Still gets intermittently very short of breath Nebulizers do not seem to help much Patient does not have any specific concerns at this time; younger son Nahum is suppose to be coming in today. Nursing notes suspicion that patient's breathing is getting slightly worse today. 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), No redness, No discharge ENT: + hearing loss (chronic hearing loss), No nasal symptoms, No sore throat Respiratory: + cough, + wheezing, + shortness of breath Cardiovascular: No chest pain, No orthopnea, No palpitations Abdomen: No pain, No nausea, No vomiting, No diarrhea Musculoskeletal: No joint pain, No muscle pain Male : No dysuria, No urinary frequency, No incontinence Neurologic: No weakness, No numbness/tingling, No vertigo Psychiatric: No depression symptoms, No anxiety Heme: No clotting problems, No swollen lymph nodes Endo: + fatigue, No excessive thirst Skin: No rash, No new/changing skin lesions Medications Current Inpatient Medications Medications (Trade) Dose Ordered Sig/Ramin Route Start Time Stop Time Status Last Admin Dose Admin Escitalopram Oxalate (Lexapro Tab) 20 mg DAILY PO 10/24/17 09:00 11/23/17 08:59 10/28/17 07:45 20 MG Isosorbide Mononitrate (Imdur Ext Rel Tab) 30 mg DAILY PO 10/24/17 09:00 11/23/17 08:59 10/28/17 07:45 30 MG Losartan Potassium (coZAAR TAB) 25 mg DAILY PO 10/24/17 09:00 11/23/17 08:59 10/28/17 07:46 25 MG Metoprolol Succinate (Toprol Xl Tab) 25 mg DAILY PO 10/24/17 09:00 11/23/17 08:59 10/28/17 07:46 25 MG Nitroglycerin (Nitrostat Tab) 0.4 mg PRN PRN UT 10/23/17 23:15 11/22/17 23:14 Pantoprazole Sodium (Protonix Tab) 40 mg DAILY PO 10/24/17 09:00 11/23/17 08:59 10/28/17 07:46 40 MG Potassium Chloride (Klor-Con M10) 20 meq DAILY PO 10/24/17 09:00 11/23/17 08:59 10/28/17 07:46 20 MEQ Tamsulosin HCl (Flomax Cap) 0.4 mg DAILY PO 10/24/17 09:00 11/23/17 08:59 10/28/17 07:46 0.4 MG Tramadol HCl (Ultram Tab) 50 mg Q6H PRN PO 10/23/17 23:15 11/22/17 23:14 10/26/17 09:49 50 MG Miscellaneous Information (Order Awaiting Action) 1 ea QS N/A 10/24/17 00:00 11/23/17 00:00 Miscellaneous Information (Order Awaiting Action) 1 ea QS N/A 10/24/17 08:00 11/23/17 07:59 Piperacillin Sod/ Tazobactam Sod 3.375 gm/Dextrose 115 ml @ 28.75 mls/ hr Q8H IV 10/24/17 04:00 10/31/17 03:59 10/28/17 12:25 28.75 MLS/HR Albuterol/ Ipratropium (Duoneb) 3 ml QIDR INH 10/24/17 08:00 11/23/17 07:59 10/28/17 11:29 3 ML Acetaminophen (Tylenol Tab) 650 mg Q4H PRN PO 10/23/17 23:30 11/22/17 23:29 10/27/17 23:56 650 MG Magnesium Hydroxide (Milk Of Magnesia Susp) 30 ml Q12H PRN PO 10/23/17 23:30 11/22/17 23:29 10/24/17 11:39 30 ML Ondansetron HCl (Zofran Inj) 4 mg Q6H PRN IV 10/23/17 23:30 11/22/17 23:29 10/25/17 10:16 4 MG Nicotine (Nicoderm Cq 21MG Patch) 1 patch QAM TD 10/24/17 09:00 11/23/17 08:59 10/28/17 07:45 1 PATCH Miscellaneous (Remove Nicoderm Patch) 1 ea HS N/A 10/24/17 21:00 11/23/17 20:59 10/27/17 21:00 1 EA Budesonide (Pulmicort Respules 0.5MG/ 2ML Neb Soln) 0.5 mg BIDR INH 10/24/17 01:15 11/23/17 01:14 10/28/17 07:42 0.5 MG Insulin Aspart (novoLOG ASPART) SLIDING SCALE G... ACHS SC 10/24/17 07:00 11/23/17 06:59 10/27/17 21:34 4 UNITS Glucose (Glucose 40% Gel) 15-30 GRAMS 15 GRAMS... UD PRN PO 10/24/17 02:00 11/23/17 01:59 Glucose (Glucose Chew Tab) 4-8 Tablets 4 Tabl... UD PRN PO 10/24/17 02:00 11/23/17 01:59 Dextrose (Dextrose 50% 50ML Syringe) 25-50ML OF 50% DW IV FOR... UD PRN IV 10/24/17 02:00 11/23/17 01:59 10/25/17 10:17 50 ML Glucagon (Glucagon Inj) 1 mg UD PRN SQ 10/24/17 02:00 11/23/17 01:59 Albuterol/ Ipratropium (Duoneb) 3 ml Q2H PRN INH 10/24/17 02:30 11/23/17 02:29 10/27/17 08:54 3 ML Miscellaneous (Iv Fluids Completed) 1 ea PRN PRN N/A 10/24/17 03:00 10/24/18 02:59 Piperacillin Sod/ Tazobactam Sod (Consult) 1 ea UD PRN N/A 10/24/17 08:30 10/31/17 08:29 Ioversol (Optiray 320) 111 ml UD PRN IV 10/25/17 19:45 10/29/17 19:44 Gadobutrol (Gadavist) 8.4 mmol UD PRN IV 10/25/17 23:30 10/29/17 23:29 Heparin Sodium (Porcine) (Heparin Sq 5000 Unit/0.5ml) 5,000 unit Q8 SQ 10/26/17 14:00 11/25/17 13:59 10/28/17 06:07 5,000 UNIT Allopurinol (Zyloprim Tab) 300 mg QAM PO 10/27/17 08:00 11/26/17 08:59 10/28/17 07:45 300 MG Aspirin (Ecotrin Tab) 81 mg QAM PO 10/27/17 08:00 11/26/17 07:59 10/28/17 07:45 81 MG Insulin Glargine (Lantus Solostar Pen) 20 units QPM SC 10/28/17 21:00 11/26/17 20:59 Oxycodone HCl (Roxicodone Immediate Rel Tab) 5 mg Q6H PRN PO 10/28/17 12:00 11/09/17 13:59 Objective Vital Signs Date Time Temp Pulse Resp B/P (MAP) Pulse Ox O2 Delivery O2 Flow Rate FiO2 10/28/17 11:29 90 20 92 Nasal Cannula 5.0 10/28/17 11:12 36.6 89 20 152/79 (103) 96 10/28/17 08:51 85 156/83 (107) 10/28/17 08:11 36.6 94 20 203/109 (140) 93 6.0 209/96 (133) 10/28/17 08:00 Nasal Cannula 6.0 10/28/17 07:54 182/103 (129) 10/28/17 07:49 83 20 95 Nasal Cannula 5.0 10/28/17 03:58 37.3 88 19 138/79 (98) 95 Nasal Cannula 5.0 10/28/17 00:52 37.7 97 22 143/76 (98) 92 Nasal Cannula 6.0 10/28/17 00:00 90 Nasal Cannula 6.0 10/27/17 20:00 91 Nasal Cannula 5.0 10/27/17 19:16 88 20 92 Nasal Cannula 5.0 10/27/17 19:13 37.8 93 24 162/79 (106) 91 Nasal Cannula 5.0 10/27/17 16:00 Nasal Cannula 5.0 10/27/17 15:30 97 20 92 Nasal Cannula 5.0 10/27/17 15:15 97 32 180/86 (117) 91 Nasal Cannula 5.0 Physical Exam General Appearance: WD/WN, no apparent distress Eyes: normal inspection, EOMI ENT: pharynx normal, + pertinent finding (diminished hearing at baseline) Neck: supple, no adenopathy, no JVD Respiratory/Chest: chest non-tender, + pertinent finding (extremely coarse with expiratory wheezing) Cardiovascular: regular rate, rhythm, no gallop, no murmur Abdomen: normal bowel sounds, non tender, soft Extremities: non-tender, no pedal edema Neurologic/Psychiatric: alert, + pertinent finding (fatigued appearing) Skin: normal color, warm/dry, no rash Lymphatic: no adenopathy Laboratory Results Last 24 Hours Test 10/27/17 16:58 10/27/17 20:29 10/28/17 05:51 10/28/17 07:40 Bedside Glucose 174 mg/dl 95 mg/dl White Blood Count 13.12 K/uL Red Blood Count 4.42 M/uL Hemoglobin 13.3 g/dL Hematocrit 39.8 % Mean Corpuscular Volume 90.0 fL Mean Corpuscular Hemoglobin 30.1 pg Mean Corpuscular Hemoglobin Concent 33.4 g/dl Platelet Count 305 K/uL Mean Platelet Volume 9.7 fL Neutrophils (%) (Auto) 80.8 % Lymphocytes (%) (Auto) 7.3 % Monocytes (%) (Auto) 7.6 % Eosinophils (%) (Auto) 0.6 % Basophils (%) (Auto) 0.2 % Neutrophils # (Auto) 10.59 K/uL Lymphocytes # (Auto) 0.96 K/uL Monocytes # (Auto) 1.00 K/uL Eosinophils # (Auto) 0.08 K/uL Basophils # (Auto) 0.03 K/uL RDW Standard Deviation 48.0 fL RDW Coefficient of Variation 14.6 % Immature Granulocyte % (Auto) 3.5 % Immature Granulocyte # (Auto) 0.46 K/uL Sodium Level 135 mmol/L Potassium Level 3.9 mmol/L Chloride Level 97 mmol/L Carbon Dioxide Level 32 mmol/L Anion Gap 6.0 mmol/L Blood Urea Nitrogen 10 mg/dl Creatinine 0.73 mg/dl Est Creatinine Clear Calc Drug Dose 87.4 ml/min Estimated GFR () 103.7 Estimated GFR (Non- 89.5 BUN/Creatinine Ratio 13.1 Random Glucose 118 mg/dl Calcium Level 8.7 mg/dl Test 10/28/17 11:57 Bedside Glucose 127 mg/dl Assessment and Plan 77-year-old male with a past medical history of Severe COPD, Type 2 diabetes, hypertension, congestive heart failure, and CAD with CABG x 4, that presents as a transfer from [facility] for worsening shortness of breath. 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 Acute on chronic Hypoxic Respiratory Failure - Multifactorial: Cancer mass effect, partial lung collapse, COPD and concurrent PNA - Right pleural effusion on admission drained on 10/24/17 - Since he has minimal hypercapnia on ABG will aim to maintain O2 sats > 94% - Breathing appears more labored today; CXR ordered - IV Morphine for subjective SOB is discontinued at this time as patient wants to continue treatment; as such will avoid respiratory depression with Morphine Stage IV Small cell lung cancer - Per my conversation with patient yesterday; he would like to pursue chemotherapy - He does look slightly decompensated today compared to yesterday - Port placement tentatively scheduled for 10/31/17 - Continue Allopurinol prophylaxis - Surgical recommendations appreciated regarding Port placement Pneumonia - Continue Zosyn for total of 7 days.; treatment stop date on 10/31/17. - If discharged, switch to Augmentin - Duonebs as needed - incentive spirometry, flutter valve, chest physio Severe COPD - Continue Duonebs and Pulmicort - Continue Pulmicort - Wheezing does not seem to be improved with nebs; query this is more an effect of malignancy rather than underlying COPD Thoracic aortic aneurysm and Abdominal aortic aneurysm - saccular aneurysm distal descending 5 x 3.7 cm - Thoracic Aneurysm 5.3 x 5.9 cm - No amenable to long-term monitoring or treatment given poor prognosis Type 2 Diabetes Mellitus - HbA1C 11.2 - Hold outpatient Sitagliptin - BSG AC and HS - Lantus increased to 20 units PM Diastolic congestive heart failure / Coronary artery disease / Hypertension / Hyperlipidemia - Currently euvolemic - Continue Aspirin, Metoprolol, Losartan and Imdur - No statin given poor prognosis; start aspirin, no benefit to statin given overall poor prognosis - ECHO LVEF 60-65%, small proximal inferoposterior wall akinetic region, diastolic dysfunction suggested Depression - Continue home Doxepin and Lexapro BPH - Continue Tamsulosin Chronic Pain - Continue Tramadol 50mg q6h PRN - Hold meloxicam as awaiting bronchoscopy Smoking Cessation - Nicotine Patch 21mg qAM VTE Prophylaxis - SCDs - Start heparin 5000 units SQ Q8H Code Status - DNR Disposition - Med/Surg - Given overall poor appearance today will revisit discussion on plan to move forward with chemotherapy to ensure he wants to continue on with this course - Palliative care consultation has been placed in accordance with guidance on involvement at any stage IV malignancy diagnosis Continued [facility] stay due to: abnormal vital signs, other (difficulty breathing) Discharge planning: home, uncertain Reviewed: Pt Seen/Exam by Me History continues to have trouble with breathing off and on with having difficulty with expectoration. Constitutional: denies: fever General Appearance: mild distress (respiratory) Respiratory: decreased breath sounds, rhonchi Cardiovascular: regular rate, rhythm Neurologic/Psychiatric: alert, oriented x 3 Skin Characteristics: warm/dry Assessment/Plan Resident Physician Supervision Note: I independently interviewed and examined the patient and verified the bryant history and physical, reviewed labs and image studies, discussed the case with the resident Dr. Bianchi and agree with the findings and care plan.
[2017-10-28] MEDS ORDERED: NURSING VERBAL MED ORDER ONE (14:30)
[2017-10-28] MEDS ORDERED: OXYCODONE HCL IR 5 MG TAB (IMMEDIATE RELEASE) PO ONE (15:00)
[2017-10-28] MEDS: TRAMADOL HCL 50 MG TAB PO PRN (16:30)
[2017-10-28] MEDS: ALBUT/IPRATROP 3MG/0.5MG NEB 3 ML VIAL INH PRN (18:01)
[2017-10-28] MEDS ORDERED: MoRPHine SULFATE 2 MG/ML CARP ONE (20:58)
[2017-10-28] MEDS ORDERED: LORATADINE 10 MG TAB PO ONE (21:00)
--- NOTE | 2017-10-28 21:03 | Progress Note ---
Progress Note Date of Service Oct 28, 2017. Progress Note RR> 40, dyspnea, coarse throughout, pursed lip breathing c/o pain discussed addition of morphine with the son as this is considered comfort measures and may decrease respiratory drive, both son and patient was agreeable and can be discussed further tomorrow for comfort vs chemo Son states family will be in for a family meeting tomorrow morning with appropriate POA paper work no scopolamine patch as of yet but did give loratadine 10 mg to possibly help with secretions discussed with RN and will update family with changes in status throughout night if patient decompensates further DNR
[2017-10-28] MEDS: INSULIN GLARGINE SOLOSTAR 100 UNITS/ML 3 ML PEN SC SCH (21:05)
[2017-10-29] VITALS (12 sets, daily range): BP systolic 128–190; BP diastolic 75–94; PULSE 87–97; TEMP 36.6–36.9; O2SAT 85–94
[2017-10-29] MEDS: MoRPHine SULFATE 2 MG/ML CARP IV PRN ×9 (00:17→14:34)
[2017-10-29] MEDS: PIPERACILL/TAZOBAC IV 3.375 GM in DEXTROSE 5% 100ML 100 ML IV SCH ×3 (04:17→19:59)
[2017-10-29] MEDS: HEPARIN SOD 5000 UNIT/0.5 ML CARP SQ SCH ×3 (04:22→20:48)
[2017-10-29 05:20] LABS: BASO % 0.2 %; BASO ABS # 0.03 K/uL (0-0.2); EOS % 0.3 %; EOS ABS # 0.04 K/uL (0-0.5); HEMATOCRIT 40.5 % (42-52); HEMOGLOBIN 13.2 g/dL (14.0-18.0); IG# 0.23 K/uL (0.00-0.02); LYMPH % 6.9 %; LYMPH ABS # 0.96 K/uL (1.2-3.4); MEAN CELL VOLUME 90.6 fL (80-100); MEAN CORPUSCULAR HEMOGLOBIN 29.5 pg (25-34); MEAN CORPUSCULAR HGB CONC 32.6 g/dl (32-36); MEAN PLATELET VOLUME 10.1 fL (7.4-10.4); MONO % 7.3 %; MONO ABS # 1.01 K/uL (0.11-0.59); NEUT % 83.6 %; NEUT ABS # 11.62 K/uL (1.4-6.5); PLATELET COUNT 305 K/uL (130-400); RED CELL DISTRIBUTION WIDTH CV 14.7 % (11.5-14.5); RED CELL DISTRIBUTION WIDTH SD 48.3 fL (36.4-46.3); WHITE BLOOD COUNT 13.89 K/uL (4.8-10.8)
[2017-10-29 05:50] LABS: CALCIUM 8.8 mg/dl (8.5-10.1); CREATININE 0.75 mg/dl (0.60-1.40)
[2017-10-29] MEDS: ALBUT/IPRATROP 3MG/0.5MG NEB 3 ML VIAL INH PRN (06:30)
[2017-10-29] MEDS: BUDESONIDE 0.5 MG/2 ML VIAL (PULMICORT) INH SCH ×2 (07:14→19:11)
[2017-10-29] MEDS: ALBUT/IPRATROP 3MG/0.5MG NEB 3 ML VIAL INH SCH ×4 (07:14→19:11)
--- NOTE | 2017-10-29 08:15 | Family Medicine Progress Note ---
Progress Note Date of Service Oct 29, 2017. Subjective Pt evaluation today including: conversation w/ patient, conversation w/ family , physical exam, chart review, lab review, review of studies, conversation w/ outside solar sales consultant, review of inpatient medication list Patient feeling uncomfortable. Having ongoing difficulty with breathing. Somewhat improved with neb treatment overnight. Experiencing lots of secretions , that were not improved with loratadine. Otherwise also complaining of soreness in his bottom from constant sitting position. He otherwise denies fevers/chills, headaches, CP, palpitations, abdominal pain, lower extremity swelling or rashes. He has diminished appetite, but did eat most of his breakfast this morning. Family is requesting softer foods given some difficulty swallowing. No nausea or vomiting. Patient is not ambulating significantly. He is voiding and stooling appropriately. ROS is unremarkable except as noted above. Objective Vital Signs Date Time Temp Pulse Resp B/P (MAP) Pulse Ox O2 Delivery O2 Flow Rate FiO2 10/29/17 08:00 36.6 87 22 128/82 (97) 92 Oxymask 10.0 10/29/17 07:14 87 24 91 Mask 10.0 10/29/17 06:30 96 24 85 Mask 10.0 10/29/17 05:01 91 157/82 (107) 10/29/17 03:56 36.9 92 18 190/94 (126) 92 Oxymask 7.0 Humidified Oxygen 10/29/17 00:00 94 Oxymask 7.0 10/28/17 23:58 37.2 90 23 166/75 (105) 94 Oxymask 7.0 10/28/17 20:25 40 85 Oxymask 10/28/17 19:27 98 20 89 Nasal Cannula 7.0 10/28/17 19:14 31 10/28/17 18:36 36.6 98 21 165/81 (109) 88 Nasal Cannula 7.0 10/28/17 18:01 109 20 89 Nasal Cannula 6.0 10/28/17 17:15 90 Nasal Cannula 5.0 10/28/17 15:28 95 20 91 Nasal Cannula 5.0 10/28/17 14:51 36.6 94 20 152/76 (101) 90 10/28/17 11:29 90 20 92 Nasal Cannula 5.0 10/28/17 11:12 36.6 89 20 152/79 (103) 96 10/28/17 08:51 85 156/83 (107) Physical Exam General Appearance: WD/WN, + mild distress (Look uncomfortable) Eyes: normal inspection ENT: hearing grossly normal Neck: supple Respiratory/Chest: + respiratory distress, + decreased breath sounds, + accessory muscle use, + crackles, + rales, + pertinent finding (Secretions audible) Cardiovascular: regular rate, rhythm, no edema, no murmur Abdomen: normal bowel sounds, non tender, soft Extremities: non-tender, normal inspection, no pedal edema Neurologic/Psychiatric: alert, oriented x 3 Skin: normal color, warm/dry, no rash Laboratory Results Results Past 24 Hours Test 10/28/17 17:00 10/28/17 20:53 10/29/17 04:48 10/29/17 08:07 Range/Units Bedside Glucose 148 160 98 70-99 mg/dl White Blood Count 13.89 4.8-10.8 K/uL Red Blood Count 4.47 4.7-6.1 M/uL Hemoglobin 13.2 14.0-18.0 g/dL Hematocrit 40.5 42-52 % Mean Corpuscular Volume 90.6 80-100 fL Mean Corpuscular Hemoglobin 29.5 25-34 pg Mean Corpuscular Hemoglobin Concent 32.6 32-36 g/dl Platelet Count 305 130-400 K/uL Mean Platelet Volume 10.1 7.4-10.4 fL Neutrophils (%) (Auto) 83.6 % Lymphocytes (%) (Auto) 6.9 % Monocytes (%) (Auto) 7.3 % Eosinophils (%) (Auto) 0.3 % Basophils (%) (Auto) 0.2 % Neutrophils # (Auto) 11.62 1.4-6.5 K/uL Lymphocytes # (Auto) 0.96 1.2-3.4 K/uL Monocytes # (Auto) 1.01 0.11-0.59 K/uL Eosinophils # (Auto) 0.04 0-0.5 K/uL Basophils # (Auto) 0.03 0-0.2 K/uL RDW Standard Deviation 48.3 36.4-46.3 fL RDW Coefficient of Variation 14.7 11.5-14.5 % Immature Granulocyte % (Auto) 1.7 % Immature Granulocyte # (Auto) 0.23 0.00-0.02 K/uL Sodium Level 132 136-145 mmol/L Potassium Level 4.0 3.5-5.1 mmol/L Chloride Level 94 98-107 mmol/L Carbon Dioxide Level 33 21-32 mmol/L Anion Gap 5.0 3-11 mmol/L Blood Urea Nitrogen 10 7-18 mg/dl Creatinine 0.75 0.60-1.40 mg/dl Est Creatinine Clear Calc Drug Dose 85.1 ml/min Estimated GFR () 102.6 Estimated GFR (Non- 88.5 BUN/Creatinine Ratio 13.2 10-20 Random Glucose 107 70-99 mg/dl Calcium Level 8.8 8.5-10.1 mg/dl Test 10/29/17 11:46 Range/Units Bedside Glucose 109 70-99 mg/dl Assessment and Plan 77-year-old male with a past medical history of severe COPD, T2DM, HTN, CAD with CABG x 4, and CHF that presents as a transfer from [facility] for worsening shortness of breath. 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 Acute on chronic hypoxic respiratory failure - Multifactorial: cancer mass effect, partial lung collapse, COPD and concurrent PNA; s/p drainage of right pleural effusion on 10/24/17. - Continue O2 via oxymask. Since he has minimal hypercapnia on ABG will aim to maintain O2 sats > 94% - Suctioning, DuoNebs q2h, guaifenesin, scopolamine patch for symptomatic management of breathing and secretions - IV Morphine PRN for subjective SOB is discontinued at this time as patient wants to continue treatment; as such will avoid respiratory depression with Morphine Stage IV Small cell lung cancer - Patient and family still interested in pursuing chemotherapy. Port placement tentatively scheduled for 10/31/17. Surgical recommendations appreciated regarding port placement. Awaiting discussion with Dr. Morales this afternoon to make final decisions. - Continue Allopurinol prophylaxis Pneumonia - Continue Zosyn for total of 7 days with plans to switch to Augmentin if discharged prior - treatment stop date on 10/31/17. - Duonebs PRN q2h - Continue incentive spirometry, flutter valve, chest physio Severe COPD - wheezing does not seem to be improved with nebs; query this is more an effect of malignancy rather than underlying COPD - Continue Duonebs and Pulmicort Thoracic aortic aneurysm and Abdominal aortic aneurysm - Saccular aneurysm distal descending 5 x 3.7cm, thoracic Aneurysm 5.3 x 5.9 cm - No amenable to long-term monitoring or treatment given poor prognosis Type 2 Diabetes Mellitus - HbA1C 11.2. Hold outpatient Sitagliptin - BSG AC and HS - Lantus increased to 20 units PM Diastolic congestive heart failure / Coronary artery disease / Hypertension / Hyperlipidemia - Currently euvolemic. ECHO LVEF 60-65%, small proximal inferoposterior wall akinetic region, diastolic dysfunction suggested - Continue Aspirin, Metoprolol, Losartan and Imdur - No statin given poor prognosis Depression - Continue home Doxepin and Lexapro BPH - Continue Tamsulosin Chronic Pain - Continue Tramadol 50mg q6h PRN - Hold meloxicam as awaiting bronchoscopy Smoking Cessation - Nicotine Patch 21mg qAM VTE Prophylaxis - SCDs - Start heparin 5000 units SQ Q8H Code Status - DNR Disposition - Med/Surg - Family working on paperwork to make son [employer] legally - Will awake family decision re: on plan to move forward with chemotherapy vs. comfort care - Palliative care consultation has been placed in accordance with guidance on involvement at any stage IV malignancy diagnosis Continued [facility] stay due to: abnormal vital signs (difficulty breathing) Discharge planning: uncertain Resident Tracking Resident Involvement: Resident Care Provided Care Provided: Adult Hospital Medicine Reviewed: Pt Seen/Exam by Me History Ongoing breathing issues noted by pt and nursing to me. Cannot clear secretions well. Family also feels that mechanical soft/ground diet is too much for pt and requesting something easier. Pt denies pain but does feel SOB. Agree with HPI/ROS as noted by resident General Appearance: WD/WN, mild distress (increased work of breathing) Respiratory: respiratory distress (mild, on face mask), stridor Cardiovascular: normal peripheral pulses, regular rate, rhythm Gastrointestinal: non tender, soft Extremities: non-tender, no pedal edema Neurologic/Psychiatric: alert, oriented x 3 Skin Characteristics: normal color, warm/dry Assessment/Plan Agree with plan as outlined above PNA with COPD exacerbation in end stage COPD pt Stage IV small cell lung cancer Pt and family were considering pursuing chemo, however they met with palliative care this afternoon and feel that comfort care is the best route Dr. Morales to see pt later today Surgery does not feel pt would survive port placement Will transition to comfort care when family is ready
[2017-10-29] MEDS: ASPIRIN 81 MG ECTAB PO SCH (08:39)
[2017-10-29] MEDS: TAMSULOSIN HCL 0.4 MG CAP PO SCH (08:39)
[2017-10-29] MEDS: ISOSORBIDE MONONITRATE 30 MG TABCR PO SCH (08:39)
[2017-10-29] MEDS: LOSARTAN POTASSIUM 25 MG TAB PO SCH (08:39)
[2017-10-29] MEDS: ESCITALOPRAM OXALATE 20 MG TAB PO SCH (08:40)
[2017-10-29] MEDS: ALLOPURINOL 300 MG TAB PO SCH (08:40)
[2017-10-29] MEDS: NICOTINE 21 MG/24 HR TDSY TD SCH (08:40)
[2017-10-29] MEDS: POTASSIUM CHLORIDE 10 MEQ TABCR PO SCH (08:40)
[2017-10-29] MEDS: METOPROLOL SUCC 25MG EXT REL TAB PO SCH (08:40)
[2017-10-29] MEDS: PANTOprazole SOD 40 MG TAB PO SCH (08:40)
[2017-10-29] MEDS: INSULIN ASPART 100 UNITS/ML 3 ML PEN SC SCH ×4 (08:56→20:48)
[2017-10-29] MEDS: [UNRECOGNIZED DRUG - OTHER] SCH ×4 (08:57→23:46)
[2017-10-29] MEDS ORDERED: GUAIFENESIN SUGAR FREE 100 MG/5 ML UDC PO PRN (09:15)
[2017-10-29] MEDS ORDERED: SCOPOLAMINE 1.5 MG TDSY TD SCH (10:30)
--- NOTE | 2017-10-29 13:38 | Surgery Progress Note ---
Surgery Progress Note Date of Service Oct 29, 2017. Subjective pt is worsening condition, SOB, Objective Vital Signs: Date Time Temp Pulse Resp B/P (MAP) Pulse Ox O2 Delivery O2 Flow Rate FiO2 10/29/17 11:18 87 25 90 Mask 10.0 10/29/17 11:06 36.6 95 22 172/82 (112) 88 Oxymask 10.0 10/29/17 10:18 Nasal Cannula 10.0 10/29/17 08:00 36.6 87 22 128/82 (97) 92 Oxymask 10.0 10/29/17 07:14 87 24 91 Mask 10.0 10/29/17 06:30 96 24 85 Mask 10.0 10/29/17 05:01 91 157/82 (107) 10/29/17 03:56 36.9 92 18 190/94 (126) 92 Oxymask 7.0 Humidified Oxygen 10/29/17 00:00 94 Oxymask 7.0 10/28/17 23:58 37.2 90 23 166/75 (105) 94 Oxymask 7.0 10/28/17 20:25 40 85 Oxymask 10/28/17 19:27 98 20 89 Nasal Cannula 7.0 10/28/17 19:14 31 10/28/17 18:36 36.6 98 21 165/81 (109) 88 Nasal Cannula 7.0 10/28/17 18:01 109 20 89 Nasal Cannula 6.0 10/28/17 17:15 90 Nasal Cannula 5.0 10/28/17 15:28 95 20 91 Nasal Cannula 5.0 10/28/17 14:51 36.6 94 20 152/76 (101) 90 General Appearance: + mild distress Neck: no JVD Respiratory/Chest: + accessory muscle use Extremities: normal range of motion, non-tender Laboratory Results: Results Past 24 Hours Test 10/28/17 17:00 10/28/17 20:53 10/29/17 04:48 10/29/17 08:07 Range/Units Bedside Glucose 148 160 98 70-99 mg/dl White Blood Count 13.89 4.8-10.8 K/uL Red Blood Count 4.47 4.7-6.1 M/uL Hemoglobin 13.2 14.0-18.0 g/dL Hematocrit 40.5 42-52 % Mean Corpuscular Volume 90.6 80-100 fL Mean Corpuscular Hemoglobin 29.5 25-34 pg Mean Corpuscular Hemoglobin Concent 32.6 32-36 g/dl Platelet Count 305 130-400 K/uL Mean Platelet Volume 10.1 7.4-10.4 fL Neutrophils (%) (Auto) 83.6 % Lymphocytes (%) (Auto) 6.9 % Monocytes (%) (Auto) 7.3 % Eosinophils (%) (Auto) 0.3 % Basophils (%) (Auto) 0.2 % Neutrophils # (Auto) 11.62 1.4-6.5 K/uL Lymphocytes # (Auto) 0.96 1.2-3.4 K/uL Monocytes # (Auto) 1.01 0.11-0.59 K/uL Eosinophils # (Auto) 0.04 0-0.5 K/uL Basophils # (Auto) 0.03 0-0.2 K/uL RDW Standard Deviation 48.3 36.4-46.3 fL RDW Coefficient of Variation 14.7 11.5-14.5 % Immature Granulocyte % (Auto) 1.7 % Immature Granulocyte # (Auto) 0.23 0.00-0.02 K/uL Sodium Level 132 136-145 mmol/L Potassium Level 4.0 3.5-5.1 mmol/L Chloride Level 94 98-107 mmol/L Carbon Dioxide Level 33 21-32 mmol/L Anion Gap 5.0 3-11 mmol/L Blood Urea Nitrogen 10 7-18 mg/dl Creatinine 0.75 0.60-1.40 mg/dl Est Creatinine Clear Calc Drug Dose 85.1 ml/min Estimated GFR () 102.6 Estimated GFR (Non- 88.5 BUN/Creatinine Ratio 13.2 10-20 Random Glucose 107 70-99 mg/dl Calcium Level 8.8 8.5-10.1 mg/dl Test 10/29/17 11:46 Range/Units Bedside Glucose 109 70-99 mg/dl Assessment & Plan base worsening condition, pt is not candidate for port insertion, the surgery is cancelled. D/W with family members, they agree with the plan, I answered all questions,
[2017-10-29] MEDS ORDERED: LIDOCAINE HCL 1% 20 ML VIAL ONE (14:17)
[2017-10-29] MEDS: CHECK SCOPOLAMINE PATCH PLACEMENT SCH ×2 (15:11→23:46)
--- NOTE | 2017-10-29 15:20 | Palliative Care Consultation ---
Consultation Date of Consultation: Oct 29, 2017. Requesting Physician: Dr. Bianchi Attending Physician: Dr. Briscoe, Dr. Powell Reason for Consultation: Goals of care History of Present Illness This 77 year old male patient with PMH severe COPD, CAD s/p CABG, CHF, and others listed below, presented to our hospital as a transfer from [facility] for worsening SOB. 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 Patient also has dense consolidation within right mid to lower lung day, small right pleural effusion, known hilar mass and partial collapse of RML and RLL. Patient was to have A-port placed for potential chemotherapy, as patient wished to pursue treatment. However, patient has continued to decompensate and respiratory status is worsening. He was seen by the surgeon today who told patient and family that patient was not a candidate to undergo surgery at this time. Patient and family understand poor prognosis and stated they would like to focus on comfort. Palliative care consulted. I met with the patient and his family. They all affirmed that patient wants to pursue comfort measures only. See plan below. Past Medical/Surgical History Medical History: Severe COPD DM type 2 Htn CHF CAD s/p CABG x4 Tobacco abuse Non-small cell lung cancer with malignant effusion Social History Smoking Status: Former Smoker (2 packs per day. Pt states he quit 1 month ago.) History of Alcohol Use: No Drug Use: none Occupation Status: retired Review of Systems Constitutional: + weakness ENT: No trouble swallowing Respiratory: + wheezing, + shortness of breath, + dyspnea at rest Cardiac: No chest pain, No edema Abdomen: No pain, No nausea, No vomiting Male : No problem reported Psychiatric: No anxiety Allergies Coded Allergies: Cortisone (Verified Allergy, Unknown, unknown, 10/23/17) Medications Current Inpatient Medications Medications (Trade) Dose Ordered Sig/Ramin Route Start Time Stop Time Status Last Admin Dose Admin Escitalopram Oxalate (Lexapro Tab) 20 mg DAILY PO 10/24/17 09:00 11/23/17 08:59 10/29/17 08:40 20 MG Isosorbide Mononitrate (Imdur Ext Rel Tab) 30 mg DAILY PO 10/24/17 09:00 11/23/17 08:59 10/29/17 08:39 30 MG Losartan Potassium (coZAAR TAB) 25 mg DAILY PO 10/24/17 09:00 11/23/17 08:59 10/29/17 08:39 25 MG Metoprolol Succinate (Toprol Xl Tab) 25 mg DAILY PO 10/24/17 09:00 11/23/17 08:59 10/29/17 08:40 25 MG Nitroglycerin (Nitrostat Tab) 0.4 mg PRN PRN UT 10/23/17 23:15 11/22/17 23:14 Pantoprazole Sodium (Protonix Tab) 40 mg DAILY PO 10/24/17 09:00 11/23/17 08:59 10/29/17 08:40 40 MG Potassium Chloride (Klor-Con M10) 20 meq DAILY PO 10/24/17 09:00 11/23/17 08:59 10/29/17 08:40 20 MEQ Tamsulosin HCl (Flomax Cap) 0.4 mg DAILY PO 10/24/17 09:00 11/23/17 08:59 10/29/17 08:39 0.4 MG Tramadol HCl (Ultram Tab) 50 mg Q6H PRN PO 10/23/17 23:15 11/22/17 23:14 10/28/17 16:30 50 MG Miscellaneous Information (Order Awaiting Action) 1 ea QS N/A 10/24/17 08:00 11/23/17 07:59 Piperacillin Sod/ Tazobactam Sod 3.375 gm/Dextrose 115 ml @ 28.75 mls/ hr Q8H IV 10/24/17 04:00 10/31/17 03:59 10/29/17 12:01 28.75 MLS/HR Albuterol/ Ipratropium (Duoneb) 3 ml QIDR INH 10/24/17 08:00 11/23/17 07:59 10/29/17 11:17 3 ML Acetaminophen (Tylenol Tab) 650 mg Q4H PRN PO 10/23/17 23:30 11/22/17 23:29 10/27/17 23:56 650 MG Magnesium Hydroxide (Milk Of Magnesia Susp) 30 ml Q12H PRN PO 10/23/17 23:30 11/22/17 23:29 10/24/17 11:39 30 ML Ondansetron HCl (Zofran Inj) 4 mg Q6H PRN IV 10/23/17 23:30 11/22/17 23:29 10/25/17 10:16 4 MG Nicotine (Nicoderm Cq 21MG Patch) 1 patch QAM TD 10/24/17 09:00 11/23/17 08:59 10/29/17 08:40 1 PATCH Miscellaneous (Remove Nicoderm Patch) 1 ea HS N/A 10/24/17 21:00 11/23/17 20:59 10/28/17 21:02 1 EA Budesonide (Pulmicort Respules 0.5MG/ 2ML Neb Soln) 0.5 mg BIDR INH 10/24/17 01:15 11/23/17 01:14 10/29/17 07:14 0.5 MG Insulin Aspart (novoLOG ASPART) SLIDING SCALE G... ACHS SC 10/24/17 07:00 11/23/17 06:59 10/29/17 13:33 1 UNITS Glucose (Glucose 40% Gel) 15-30 GRAMS 15 GRAMS... UD PRN PO 10/24/17 02:00 11/23/17 01:59 Glucose (Glucose Chew Tab) 4-8 Tablets 4 Tabl... UD PRN PO 10/24/17 02:00 11/23/17 01:59 Dextrose (Dextrose 50% 50ML Syringe) 25-50ML OF 50% DW IV FOR... UD PRN IV 10/24/17 02:00 11/23/17 01:59 10/25/17 10:17 50 ML Glucagon (Glucagon Inj) 1 mg UD PRN SQ 10/24/17 02:00 11/23/17 01:59 Albuterol/ Ipratropium (Duoneb) 3 ml Q2H PRN INH 10/24/17 02:30 11/23/17 02:29 10/29/17 06:30 3 ML Miscellaneous (Iv Fluids Completed) 1 ea PRN PRN N/A 10/24/17 03:00 10/24/18 02:59 Piperacillin Sod/ Tazobactam Sod (Consult) 1 ea UD PRN N/A 10/24/17 08:30 10/31/17 08:29 Ioversol (Optiray 320) 111 ml UD PRN IV 10/25/17 19:45 1/15/18 19:44 Gadobutrol (Gadavist) 8.4 mmol UD PRN IV 10/25/17 23:30 10/29/17 23:29 Heparin Sodium (Porcine) (Heparin Sq 5000 Unit/0.5ml) 5,000 unit Q8 SQ 10/26/17 14:00 11/25/17 13:59 10/29/17 13:34 5,000 UNIT Allopurinol (Zyloprim Tab) 300 mg QAM PO 10/27/17 08:00 11/26/17 08:59 10/29/17 08:40 300 MG Aspirin (Ecotrin Tab) 81 mg QAM PO 10/27/17 08:00 11/26/17 07:59 10/29/17 08:39 81 MG Insulin Glargine (Lantus Solostar Pen) 20 units QPM SC 10/28/17 21:00 11/26/17 20:59 10/28/17 21:05 20 UNITS Oxycodone HCl (Roxicodone Immediate Rel Tab) 5 mg Q6H PRN PO 10/28/17 12:00 11/09/17 13:59 10/28/17 20:20 5 MG Dutasteride (Avodart) 0.5 mg DAILY PO 10/29/17 08:00 11/28/17 07:59 10/29/17 08:41 0.5 MG Morphine Sulfate (MoRPHine SULFATE INJ) 2 mg Q1H PRN IV 10/28/17 21:00 11/11/17 20:59 10/29/17 13:39 2 MG Guaifenesin (Robitussin Sugar Free Syrup) 100 mg Q6H PRN PO 10/29/17 09:15 11/28/17 09:14 10/29/17 10:07 100 MG Scopolamine (Transderm-Scop Patch) 1.5 mg Q72H TD 10/29/17 10:30 11/28/17 10:29 10/29/17 10:58 1.5 MG Miscellaneous (Remove Transderm-Scop Patch) 1 ea Q72H N/A 11/01/17 10:29 12/01/17 10:28 Miscellaneous Information (Check Scopolamine Patch Placement) 1 ea QS N/A 10/29/17 16:00 11/28/17 15:59 Acetylcysteine (Mucomyst 20% Inh Soln) 5 ml QID INH 10/29/17 17:00 11/28/17 16:59 Physical Exam Date Time Temp Pulse Resp B/P (MAP) Pulse Ox O2 Delivery O2 Flow Rate FiO2 10/29/17 11:18 87 25 90 Mask 10.0 10/29/17 11:06 36.6 95 22 172/82 (112) 88 Oxymask 10.0 10/29/17 10:18 Nasal Cannula 10.0 10/29/17 08:00 36.6 87 22 128/82 (97) 92 Oxymask 10.0 10/29/17 07:14 87 24 91 Mask 10.0 10/29/17 06:30 96 24 85 Mask 10.0 10/29/17 05:01 91 157/82 (107) 10/29/17 03:56 36.9 92 18 190/94 (126) 92 Oxymask 7.0 Humidified Oxygen 10/29/17 00:00 94 Oxymask 7.0 10/28/17 23:58 37.2 90 23 166/75 (105) 94 Oxymask 7.0 10/28/17 20:25 40 85 Oxymask 10/28/17 19:27 98 20 89 Nasal Cannula 7.0 10/28/17 19:14 31 10/28/17 18:36 36.6 98 21 165/81 (109) 88 Nasal Cannula 7.0 10/28/17 18:01 109 20 89 Nasal Cannula 6.0 10/28/17 17:15 90 Nasal Cannula 5.0 10/28/17 15:28 95 20 91 Nasal Cannula 5.0 10/28/17 14:51 36.6 94 20 152/76 (101) 90 General Appearance: no apparent distress ENT: hearing grossly normal Neck: supple, no JVD Respiratory: + accessory muscle use, + rhonchi, + wheezing (insp/exp), + pertinent finding (Oxy-mask 10L) Cardiovascular: regular rate, rhythm, no edema, + normal peripheral pulses Abdomen: normal bowel sounds, non tender, soft, + distended (patient's normal body habitus) Neurologic/Psychiatric: alert, normal mood/affect, oriented x 3 Skin: normal color Laboratory Results Last 24 Hours Test 10/28/17 17:00 10/28/17 20:53 10/29/17 04:48 10/29/17 08:07 Bedside Glucose 148 mg/dl 160 mg/dl 98 mg/dl White Blood Count 13.89 K/uL Red Blood Count 4.47 M/uL Hemoglobin 13.2 g/dL Hematocrit 40.5 % Mean Corpuscular Volume 90.6 fL Mean Corpuscular Hemoglobin 29.5 pg Mean Corpuscular Hemoglobin Concent 32.6 g/dl Platelet Count 305 K/uL Mean Platelet Volume 10.1 fL Neutrophils (%) (Auto) 83.6 % Lymphocytes (%) (Auto) 6.9 % Monocytes (%) (Auto) 7.3 % Eosinophils (%) (Auto) 0.3 % Basophils (%) (Auto) 0.2 % Neutrophils # (Auto) 11.62 K/uL Lymphocytes # (Auto) 0.96 K/uL Monocytes # (Auto) 1.01 K/uL Eosinophils # (Auto) 0.04 K/uL Basophils # (Auto) 0.03 K/uL RDW Standard Deviation 48.3 fL RDW Coefficient of Variation 14.7 % Immature Granulocyte % (Auto) 1.7 % Immature Granulocyte # (Auto) 0.23 K/uL Sodium Level 132 mmol/L Potassium Level 4.0 mmol/L Chloride Level 94 mmol/L Carbon Dioxide Level 33 mmol/L Anion Gap 5.0 mmol/L Blood Urea Nitrogen 10 mg/dl Creatinine 0.75 mg/dl Est Creatinine Clear Calc Drug Dose 85.1 ml/min Estimated GFR () 102.6 Estimated GFR (Non- 88.5 BUN/Creatinine Ratio 13.2 Random Glucose 107 mg/dl Calcium Level 8.8 mg/dl Test 10/29/17 11:46 Bedside Glucose 109 mg/dl Assessment & Plan Palliative Performance Scale: 20 % Problem list: SOB/Dyspnea Left-sided pain Stage IV small cell lung cancer Respiratory failure Right pleural effusion Pneumonia Severe COPD Diastolic CHF/CAD/hx CABG Goals of care (Z51.5) Palliative care recs: discussed with patient, patient's sons/POAs Aaron and Nahum, patient's two daughters, Dr. Briscoe and Dr. Powell. -Surgeon came to see patient today for possible A-port placement for potential chemotherapy. Given patient's worsening condition today, surgeon deemed patient ineligible for surgery which he conveyed to the patient and his family. Patient' s family verbalized understanding and stated they just want patient to be comfortable. -I met with the patient and all family members listed above. Patient and his family all confirmed with me that they would like to strictly focus on comfort at this point. They understand that patient cannot have port placement or chemotherapy. -We discussed increasing morphine for the respiratory distress-- patient states that is what he wants and he is okay with side effects. Family agrees as well. -Given that patient has required 4 doses of morphine 2mg IV in last 7 hours and is still acutely SOB and uncomfortable, I think it is reasonable to start a continuous infusion at this point. Would start at 2mg/hr, titrate by 1mg/hr Q10min PRN pain or SOB. Goal would be for respirations to be 12-18. -Has scopolamine patch ordered. Would also order atropine 1% oph soln 4 drops SL Q1h PRN secretions. Can add second scopolamine patch if needed. -Family asked about getting patient home. I explained hospice care, but patient is currently too unstable for transfer out of hospital. Need to get patient comfortable at this point and reassess. He will likely be GIP hospice candidate. -Patient did complete a combined POA/living will here with out patient sales representative printing. Her note reads as follows: "Advance Directive for Healthcare completed by patient and copy placed on chart. Patient's Healthcare Agent is his son Aaron Noguera ([phone]) and his first alternative is his other son Nahum Farooq Jr Chuckie ([phone]). In the event patient has an end-stage medical condition or is permanently unconscious and there is no realistic hope of significant recovery,the patient does not wish aggressive medical care,tube feedings, nor does he wish to organ donor. Patient requested that son Dave is listed as Emergency Contact and son Praneeth is listed as Contact so that both sons are listed on record." Thank you kindly for this consult. I will follow as needed.
--- NOTE | 2017-10-29 15:27 | DIAGNOSTIC IMAGING REPORT ---
CHEST ONE VIEW PORTABLE HISTORY: 77 years-old Male pleural effusion pneumonia with COPD and right-sided pleural effusion COMPARISON: Chest radiograph 10/28/2017, chest CT 10/24/2017 TECHNIQUE: Portable AP view of the chest FINDINGS: Prior median sternotomy with several fractured sternotomy wires redemonstrated, unchanged. Cardiac silhouette again appears to be in the upper limits of normal. Atherosclerosis of the aorta. Dense consolidation is again seen within the mid right lung zone and right lung base which has not significantly changed. Small right pleural effusion appears of slightly decreased in size with Right-sided pleural drainage catheter noted overlying the right midlung. Mild interstitial coarsening is seen to the left lung. The bones appear grossly intact. IMPRESSION: 1. Right-sided chest tube overlies the right midlung. Small right-sided pleural effusion appears to have slightly decreased in size. 2. Persistent dense airspace consolidation throughout the right lung likely corresponding with partial collapse of the right middle and lower lobes with associated postobstructive pneumonitis. 3. Patient's known right hilar mass is better evaluated on comparison chest CT. The above report was generated using voice recognition software. It may contain grammatical, syntax or spelling errors. Electronically signed by: Manolo Dill M.D. 10/29/2017 3:26 PM Dictated Date/Time: 10/29/2017 3:21 PM
[2017-10-29] MEDS: MoRPHine SULF/NSS 250MG/250ML 250 ML IV SCH (15:33)
[2017-10-29] MEDS: ACETYLCYSTEINE 20% INHAL SOLN ***DISPENSED BY RESP. INH SCH ×2 (17:00→19:12)
--- NOTE | 2017-10-29 18:01 | Hematology/Oncology Prog Note ---
Hematology/Onc Progress Note Date of Service Oct 29, 2017. Subjective I saw him at bedside, several family members where also at bedside, reviewed his chart, over the weekend and today morning family member decided not to proceed with aggressive kind of treatment in his case, now they would like to focus on supportive and symptomatic treatment, he is requiring more oxygen around 12 L per minute, no new fever, blood pressure has remained in normal range, feeling weak and tired, has some nonspecific left-sided chest pain, poor oral intake noted, also seen by palliative care team, decided not to proceed with aggressive kind of chemotherapy, no need for port placement, agree with the current medical management to provide comfort care. Blood workup done on 10/29/2017: - WBC 13,800, H&H of 13.2/40.5, Platelet count of 305,000. - BUN/creatinine: 10/0.7, calcium 8.8. Chest x-ray done on 10/29/2016 --> Small bilateral pleural effusion noted which is slightly decreased in the size, persistent dance airspace consolidation toward the right lung corresponding with a partial collapse of the right middle and lower lobe with postobstructive pneumonitis noted. I also spoke with the patient's family member at bedside and reviewed about his overall clinical condition, overall prognosis remains quite poor, will continue to provide supportive and symptomatic treatment in the hospital. Vital Signs Vital Signs Past 12 Hours Date Time Temp Pulse Resp B/P (MAP) Pulse Ox O2 Delivery O2 Flow Rate FiO2 10/29/17 16:11 36.9 97 18 137/75 (95) 91 Nasal Cannula 12.0 10/29/17 16:00 90 Oxymask 12.0 10/29/17 11:18 87 25 90 Mask 10.0 10/29/17 11:06 36.6 95 22 172/82 (112) 88 Oxymask 10.0 10/29/17 10:18 Nasal Cannula 10.0 10/29/17 08:00 36.6 87 22 128/82 (97) 92 Oxymask 10.0 10/29/17 07:14 87 24 91 Mask 10.0 10/29/17 06:30 96 24 85 Mask 10.0
--- NOTE | 2017-10-29 18:34 | OPERATIVE REPORT ---
DATE OF OPERATION: 10/29/2017 INDICATIONS FOR PROCEDURE: Mr. Noguera was seen today. He is in respiratory distress. there has been a discussion about making him comfort measures only. He is on 10 liters on a mask with saturations anywhere from 85-92%. He has markedly decreased breath sounds on the right side. An x-ray shows reaccumulation of fluid. I had a long discussion with the patient, his daughter, and Dr. Huff. We have a bit of a difficult situation with this patient. He has a few reasons for having fluid in his chest. One reason is that this is a malignant effusion from cytology from his small cell lung cancer. The other is compression on the right lower lobe and middle lobe bronchi, which are causing collapse of his right lower lobe and right middle lobe. There does not appear to be anything to be done from an endobronchial standpoint. At this point, I think draining the fluid would be helpful if nothing else for symptomatic relief. It is my hope that he will respond to radiation and perhaps he will respond enough that a Port-A-Cath could be placed for chemotherapy. This was cancelled today due to his shortness of breath. On the afternoon of 10/29/2017, I placed a PleurX catheter without difficulty and drained about 1100 mL of fluid. He seemed better after that, although he is still markedly short of breath. DESCRIPTION OF PROCEDURE: The patient was placed in a relatively upright position with the reverse Trendelenburg and was placed in the left lateral decubitus position. His right chest was then evaluated with an ultrasound and an area was marked which was a good window to get into the fluid. He was prepped and draped in the usual sterile fashion. After appropriate timeout had been called. A 25 gauge needle, 1% Xylocaine were used to raise a skin wheal over the area which had been marked. About 12 cm anterior to this, another skin wheal was raised 25 gauge needle, 1% Xylocaine. A large bore needle was used to get to the posterior skin wheal and free-flowing fluid was obtained. A guidewire was inserted through the needle and needle removed. A 1 cm incision was made at both skin wheals. A long needle was used to anesthetize the subcutaneous tissues between these 2 skin wheals. The tunnel was attached to the PleurX catheter and dragged from the anterior to posterior incision and the tunneler then removed. Introducer sheath was slid over the guidewire posteriorly and inner cannula and guidewire removed and the PleurX catheter was placed through the peel away sheath which was removed. Two separate 3-0 silk sutures were used to close the posterior incision and a 3-0 silk suture was used to anchor the catheter to the patient's skin anteriorly. 1100 mL of a light yellow fluid was drained. We had no bleeding. He had no air leak. Chest x-ray showed decrease in the pleural fluid at the base and no evidence of a pneumothorax. He tolerated it well, although he is still markedly short of breath. If he does not respond to radiation and perhaps chemotherapy, then I think his time is short. I attest to the content of the Intraoperative Record and any orders documented therein. Any exception s are noted below.
[2017-10-29] MEDS: INSULIN GLARGINE SOLOSTAR 100 UNITS/ML 3 ML PEN SC SCH (20:48)
[2017-10-29] MEDS: ATROPINE SULFATE 1% OP SOLN 5 ML BTL OP PRN (21:07)
[2017-10-30] MEDS: MoRPHine SULF/NSS 250MG/250ML 250 ML IV SCH ×2 (00:31→01:56)
[2017-10-30] MEDS: PIPERACILL/TAZOBAC IV 3.375 GM in DEXTROSE 5% 100ML 100 ML IV SCH ×2 (04:41→12:00)
[2017-10-30] MEDS: HEPARIN SOD 5000 UNIT/0.5 ML CARP SQ SCH ×2 (05:29→12:12)
[2017-10-30 07:28] VITALS: PULSE 94; O2SAT 90
[2017-10-30] MEDS: BUDESONIDE 0.5 MG/2 ML VIAL (PULMICORT) INH SCH ×2 (07:28→19:45)
[2017-10-30] MEDS: ACETYLCYSTEINE 20% INHAL SOLN ***DISPENSED BY RESP. INH SCH ×3 (07:28→19:45)
[2017-10-30] MEDS: ALBUT/IPRATROP 3MG/0.5MG NEB 3 ML VIAL INH SCH ×4 (07:28→19:45)
--- NOTE | 2017-10-30 07:30 | Family Medicine Progress Note ---
Progress Note Date of Service Oct 30, 2017. Subjective Pt evaluation today including: conversation w/ patient, physical exam, chart review, lab review, review of studies, conversation w/ human resources consultant, review of inpatient medication list Patient is drowsy but arousable. He is able to respond appropriately with yes/ no. He denies chest pain but admits to ongoing difficulty with breathing. He denies any other pain/discomfort otherwise. No further ROS was obtained nor was physical examination performed in detail out of respect for patient and family, given he was on comfort measures only. Objective Vital Signs Date Time Temp Pulse Resp B/P (MAP) Pulse Ox O2 Delivery O2 Flow Rate FiO2 10/30/17 00:00 Oxymask 15.0 10/29/17 20:00 92 Oxymask 12.0 10/29/17 19:12 94 24 92 Mask 10.0 10/29/17 16:11 36.9 97 18 137/75 (95) 91 Nasal Cannula 12.0 10/29/17 16:00 90 Oxymask 12.0 10/29/17 11:18 87 25 90 Mask 10.0 10/29/17 11:06 36.6 95 22 172/82 (112) 88 Oxymask 10.0 10/29/17 10:18 Nasal Cannula 10.0 10/29/17 08:00 36.6 87 22 128/82 (97) 92 Oxymask 10.0 Physical Exam General Appearance: + mild distress, + pertinent finding (OxyMask on) Eyes: normal inspection ENT: hearing grossly normal Respiratory/Chest: + accessory muscle use, + wheezing Neurologic/Psychiatric: + pertinent finding (obtunded) Assessment and Plan 77 year old male with a past medical history of severe COPD, T2DM, HTN, CAD with CABG x 4, and CHF that presents as a transfer from [facility] for worsening shortness of breath. 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 ON COMFORT MEASURES: - Morphine drip currently at 4mg/hr - to be titrated 1mg/hr q10min for respiratory distress - Atropine drops and scopolamine patch as needed for secretions - IV Ativan 1mg PRN agitation - Pleur-X catheter inserted for comfort yesterday PM - 1.1L fluid drained. Further management of Pleur-X as per Dr. Mock Resident Tracking Resident Involvement: Resident Care Provided Care Provided: [facility] Medicine Reviewed: Pt Seen/Exam by Me History Pt was more awake earlier this morning, however by early afternoon he was barely able to be aroused. Family feels he is comfortable. Have moved to comfort care. Agree with HPI/ROS as noted by resident General Appearance: WD/WN, no apparent distress Respiratory: no respiratory distress, other (upper respiratory congestion present, but improved from yesterday) Cardiovascular: normal peripheral pulses, regular rate, rhythm, no edema Gastrointestinal: non tender, soft Extremities: non-tender, no pedal edema Neurologic/Psychiatric: other (pt appears comfortable, does not open eyes or otherwise acknowledge my verbal stimulation) Skin Characteristics: normal color, warm/dry Assessment/Plan Agree with plan as outlined above PNA with COPD exacerbation in end stage COPD pt Stage IV small cell lung cancer Transitioned to comfort care and now with morphine drip
[2017-10-30] MEDS: CHECK SCOPOLAMINE PATCH PLACEMENT SCH ×2 (07:49→16:08)
[2017-10-30] MEDS: [UNRECOGNIZED DRUG - OTHER] SCH ×2 (07:49→16:00)
[2017-10-30] MEDS: INSULIN ASPART 100 UNITS/ML 3 ML PEN SC SCH ×2 (08:20→11:54)
--- NOTE | 2017-10-30 08:23 | DIAGNOSTIC IMAGING REPORT ---
CHEST ONE VIEW PORTABLE CLINICAL HISTORY: Effusion. Pneumonia. Small cell lung cancer. COMPARISON STUDY: Chest radiograph October 29, 2017. FINDINGS: A right pleural catheter remains in place. There is no pneumothorax. There are median sternotomy wires. Right lung volume loss is noted. Mass-like right perihilar opacity is again noted. Asymmetric right lung airspace opacity is noted. There is diffuse interstitial thickening. This is unchanged. Right lower lung aeration has slightly improved. IMPRESSION: 1. Right pleural catheter in place. No pneumothorax. Interval improvement in right lower lung aeration. 2. Known right hilar mass better evaluated on prior chest CT. Electronically signed by: Fabian Zavala M.D. 10/30/2017 8:22 AM Dictated Date/Time: 10/30/2017 8:19 AM
--- NOTE | 2017-10-30 09:29 | SURGERY PROGRESS NOTE ---
DATE: 10/30/2017 Mr. Noguera was seen today on 10/30/2017. I placed a PleurX catheter in him yesterday as he was in marked distress. We drained about 1100 mL of fluid and he improved. He still is on high levels of oxygen. He is not as much respiratory distress as he was yesterday. His heart rate is in the 90s. He was on as much as 15 liters of oxygen. He is now down to 10 with 90% saturations. He was drained for 160 mL of fluid this morning. I think his x-ray looks a bit better to me with better aeration but he still has a large tumor mass. I had a talk with the family. At this point they do not want to proceed with any chemotherapy or radiation. This is an ongoing discussion with the family.
[2017-10-30] MEDS: ASPIRIN 81 MG ECTAB PO SCH (09:38)
[2017-10-30] MEDS: ALLOPURINOL 300 MG TAB PO SCH (09:38)
[2017-10-30] MEDS: TAMSULOSIN HCL 0.4 MG CAP PO SCH (09:38)
[2017-10-30] MEDS: NICOTINE 21 MG/24 HR TDSY TD SCH (09:38)
[2017-10-30] MEDS: ESCITALOPRAM OXALATE 20 MG TAB PO SCH (09:38)
[2017-10-30] MEDS: ISOSORBIDE MONONITRATE 30 MG TABCR PO SCH (09:38)
--- NOTE | 2017-10-30 10:50 | Pulmonology Progress Note ---
Pulmonary Progress Note Date of Service Oct 30, 2017. Attending Dr. Huff Subjective Patient is obtained today and mildly responsive to vocal commands. Objective Notably appended and minimally responsive to verbal commands. Patient not showing signs of accessory muscle use, tachypnea no signs of respiratory insufficiency distress. Physical exam: Patient's family asked to defer the physical exam is patient is on hospice/ comfort care issues only. Assessment & Plan 77-year-old gentleman with diffuse small cell lung carcinoma: 1. Small Cell Lung Carcinoma: Patient with diffuse small cell lung carcinoma currently on comfort measures and notably comfortable. At this time I agree with the current plan. I have followed up with the family and they are currently please with his level of care. Pulmonary will currently sign off thank you for this consultation. Data Medications: Current Inpatient Medications Medications (Trade) Dose Ordered Sig/Ramin Route Start Time Stop Time Status Last Admin Dose Admin Escitalopram Oxalate (Lexapro Tab) 20 mg DAILY PO 10/24/17 09:00 11/23/17 08:59 10/29/17 08:40 20 MG Isosorbide Mononitrate (Imdur Ext Rel Tab) 30 mg DAILY PO 10/24/17 09:00 11/23/17 08:59 10/29/17 08:39 30 MG Nitroglycerin (Nitrostat Tab) 0.4 mg PRN PRN UT 10/23/17 23:15 11/22/17 23:14 Tamsulosin HCl (Flomax Cap) 0.4 mg DAILY PO 10/24/17 09:00 11/23/17 08:59 10/29/17 08:39 0.4 MG Tramadol HCl (Ultram Tab) 50 mg Q6H PRN PO 10/23/17 23:15 11/22/17 23:14 10/28/17 16:30 50 MG Miscellaneous Information (Order Awaiting Action) 1 ea QS N/A 10/24/17 08:00 11/23/17 07:59 Piperacillin Sod/ Tazobactam Sod 3.375 gm/Dextrose 115 ml @ 28.75 mls/ hr Q8H IV 10/24/17 04:00 10/31/17 03:59 10/30/17 04:41 28.75 MLS/HR Albuterol/ Ipratropium (Duoneb) 3 ml QIDR INH 10/24/17 08:00 11/23/17 07:59 10/30/17 07:28 3 ML Acetaminophen (Tylenol Tab) 650 mg Q4H PRN PO 10/23/17 23:30 11/22/17 23:29 10/27/17 23:56 650 MG Magnesium Hydroxide (Milk Of Magnesia Susp) 30 ml Q12H PRN PO 10/23/17 23:30 11/22/17 23:29 10/24/17 11:39 30 ML Ondansetron HCl (Zofran Inj) 4 mg Q6H PRN IV 10/23/17 23:30 11/22/17 23:29 10/25/17 10:16 4 MG Nicotine (Nicoderm Cq 21MG Patch) 1 patch QAM TD 10/24/17 09:00 11/23/17 08:59 10/29/17 08:40 1 PATCH Miscellaneous (Remove Nicoderm Patch) 1 ea HS N/A 10/24/17 21:00 11/23/17 20:59 10/29/17 20:48 1 EA Budesonide (Pulmicort Respules 0.5MG/ 2ML Neb Soln) 0.5 mg BIDR INH 10/24/17 01:15 11/23/17 01:14 10/30/17 07:28 0.5 MG Insulin Aspart (novoLOG ASPART) SLIDING SCALE G... ACHS SC 10/24/17 07:00 11/23/17 06:59 10/29/17 13:33 1 UNITS Glucose (Glucose 40% Gel) 15-30 GRAMS 15 GRAMS... UD PRN PO 10/24/17 02:00 11/23/17 01:59 Glucose (Glucose Chew Tab) 4-8 Tablets 4 Tabl... UD PRN PO 10/24/17 02:00 11/23/17 01:59 Dextrose (Dextrose 50% 50ML Syringe) 25-50ML OF 50% DW IV FOR... UD PRN IV 10/24/17 02:00 11/23/17 01:59 10/25/17 10:17 50 ML Glucagon (Glucagon Inj) 1 mg UD PRN SQ 10/24/17 02:00 11/23/17 01:59 Albuterol/ Ipratropium (Duoneb) 3 ml Q2H PRN INH 10/24/17 02:30 11/23/17 02:29 10/29/17 06:30 3 ML Miscellaneous (Iv Fluids Completed) 1 ea PRN PRN N/A 10/24/17 03:00 10/24/18 02:59 Piperacillin Sod/ Tazobactam Sod (Consult) 1 ea UD PRN N/A 10/24/17 08:30 10/31/17 08:29 Heparin Sodium (Porcine) (Heparin Sq 5000 Unit/0.5ml) 5,000 unit Q8 SQ 10/26/17 14:00 11/25/17 13:59 10/29/17 13:34 5,000 UNIT Allopurinol (Zyloprim Tab) 300 mg QAM PO 10/27/17 08:00 11/26/17 08:59 10/29/17 08:40 300 MG Aspirin (Ecotrin Tab) 81 mg QAM PO 10/27/17 08:00 11/26/17 07:59 10/29/17 08:39 81 MG Oxycodone HCl (Roxicodone Immediate Rel Tab) 5 mg Q6H PRN PO 10/28/17 12:00 11/09/17 13:59 10/28/17 20:20 5 MG Dutasteride (Avodart) 0.5 mg DAILY PO 10/29/17 08:00 11/28/17 07:59 10/29/17 08:41 0.5 MG Guaifenesin (Robitussin Sugar Free Syrup) 100 mg Q6H PRN PO 10/29/17 09:15 11/28/17 09:14 10/29/17 10:07 100 MG Scopolamine (Transderm-Scop Patch) 1.5 mg Q72H TD 10/29/17 10:30 11/28/17 10:29 10/29/17 10:58 1.5 MG Miscellaneous (Remove Transderm-Scop Patch) 1 ea Q72H N/A 11/01/17 10:29 12/01/17 10:28 Miscellaneous Information (Check Scopolamine Patch Placement) 1 ea QS N/A 10/29/17 16:00 11/28/17 15:59 10/30/17 07:49 1 EA Acetylcysteine (Mucomyst 20% Inh Soln) 5 ml QID INH 10/29/17 17:00 11/28/17 16:59 10/30/17 07:28 5 ML Atropine Sulfate (Atropine Sulfate 1% Oph Soln) 4 drops Q1H PRN OP 10/29/17 15:00 11/28/17 14:59 10/29/17 21:07 4 DROPS Morphine Sulfate/ Dextrose 250 ml @ 2 mls/hr Q24H IV 10/29/17 15:00 11/12/17 14:59 10/30/17 01:56 4 MLS/HR Vital Signs: Date Time Temp Pulse Resp B/P (MAP) Pulse Ox O2 Delivery O2 Flow Rate FiO2 10/30/17 10:09 Mask 10.0 10/30/17 07:28 94 24 90 Mask 10.0 10/30/17 00:00 Oxymask 15.0 10/29/17 20:00 92 Oxymask 12.0 10/29/17 19:12 94 24 92 Mask 10.0 10/29/17 16:11 36.9 97 18 137/75 (95) 91 Nasal Cannula 12.0 10/29/17 16:00 90 Oxymask 12.0 10/29/17 11:18 87 25 90 Mask 10.0 10/29/17 11:06 36.6 95 22 172/82 (112) 88 Oxymask 10.0 Laboratory Results: Last 24 Hours Test 10/29/17 11:46 10/29/17 16:51 10/30/17 07:54 Bedside Glucose 109 mg/dl 89 mg/dl 98 mg/dl
--- NOTE | 2017-10-30 10:53 | Palliative Care Progress Note ---
Palliative Care Progress Note Date of Service Oct 30, 2017. Subjective Pt evaluation today including: conversation w/ patient, conversation w/ family (daughter, Rhonda), physical exam, chart review, conversation w/ distributor sales consultant ( Dr. Powell), review of inpatient medication list Pain: "better" PO Intake: minimal Voiding: saenz catheter in place -Patient remains on comfort measures only. -On morphine infusion at 4mg/hr. Patient still easily wakens but is somewhat drowsy. Is very hard of hearing, but is able to answer questions. States his pain is better and feels less short of breath. -Still has somewhat labored respirations but much improved from yesterday. Will likely continue to require IV morphine infusion. -Had Pleur-x catheter placed yesterday afternoon by Dr. Mock and had 1100ml fluid drained. Review of Systems unable to obtain full ROS due to patient condition Objective Vital Signs Date Time Temp Pulse Resp B/P (MAP) Pulse Ox O2 Delivery O2 Flow Rate FiO2 10/30/17 10:09 Mask 10.0 10/30/17 07:28 94 24 90 Mask 10.0 10/30/17 00:00 Oxymask 15.0 10/29/17 20:00 92 Oxymask 12.0 10/29/17 19:12 94 24 92 Mask 10.0 10/29/17 16:11 36.9 97 18 137/75 (95) 91 Nasal Cannula 12.0 10/29/17 16:00 90 Oxymask 12.0 10/29/17 11:18 87 25 90 Mask 10.0 10/29/17 11:06 36.6 95 22 172/82 (112) 88 Oxymask 10.0 Physical Exam General Appearance: no apparent distress (but has dyspnea), + obese ENT: + pertinent finding (hard of hearing) Neck: supple, no JVD Respiratory/Chest: + decreased breath sounds, + rhonchi (coarse throughout), + pertinent finding (secretions are less than yesterday) Cardiovascular: regular rate, rhythm, no edema, + normal peripheral pulses Abdomen: normal bowel sounds, non tender, + pertinent finding (firm abdomen- normal body habitus) Neurologic/Psychiatric: + pertinent finding (drowsy, but does wake up) Skin: normal color Laboratory Results Last 24 Hours Test 10/29/17 11:46 10/29/17 16:51 10/30/17 07:54 Bedside Glucose 109 mg/dl 89 mg/dl 98 mg/dl Assessment and Plan Problem list: SOB/Dyspnea Left-sided pain Stage IV small cell lung cancer Respiratory failure Right pleural effusion Pneumonia Severe COPD Diastolic CHF/CAD/hx CABG Goals of care (Z51.5) Palliative care recs: discussed with patient, daughter Rhonda, son Aaron, and Dr. Powell. -Patient remains comfort measures only. -Again, no plans to pursue any treatment for the cancer. -Will defer to thoracic surgery as far as plan for the Pleur-x catheter. -Continue morphine infusion as ordered. Nurses are able to titrate for comfort. Is currently at 4mg/hr and I do foresee needing to increase this as patient is still having some labored breathing. -Consider adding second scopolamine patch for the secretions. -I believe this patient may qualify for [facility] hospice. I will speak with counter caser. -Patient and his children did confirm yesterday that patient's son Aaron is main decision maker. -If patient becomes anxious/agitated, could use lorazepam 1mg IV Q4h PRN. Thank you again for this consult. I will follow. Palliative Performance Scale: 20 % Continued [facility] stay due to: abnormal vital signs (difficulty breathing) Discharge planning: uncertain
[2017-10-30 11:33] VITALS: PULSE 96; O2SAT 89
[2017-10-30] MEDS ORDERED: NURSING VERBAL MED ORDER ONE (12:15)
[2017-10-30 15:07] VITALS: PULSE 95; O2SAT 91
[2017-10-30] MEDS ORDERED: LORAZEPAM INJ 1 MG in SYRINGE 0.5 ML IV PRN (16:15)
[2017-10-30 19:45] VITALS: PULSE 95; O2SAT 91
[2017-10-31] MEDS ORDERED: NURSING DECISION MEDICATION ORDER SCH
[2017-10-31] MEDS: CHECK SCOPOLAMINE PATCH PLACEMENT SCH ×5 (00:22→15:18)
[2017-10-31] MEDS: ATROPINE SULFATE 1% OP SOLN 5 ML BTL OP PRN ×6 (00:28→15:19)
[2017-10-31] MEDS ORDERED: SCOPOLAMINE 1.5 MG TDSY TD ONE (03:15)
--- NOTE | 2017-10-31 05:31 | Family Medicine Progress Note ---
Progress Note Date of Service Oct 31, 2017. Subjective Pt evaluation today including: conversation w/ family, chart review, conversation w/ business solutions consultant, review of inpatient medication list Patient is not alert. He is breathing with oxymask and having lots of secretions. No further ROS was obtained nor was physical examination performed in detail out of respect for patient and family, given he is on comfort measures only. Objective Vital Signs Date Time Temp Pulse Resp B/P (MAP) Pulse Ox O2 Delivery O2 Flow Rate FiO2 10/31/17 00:00 Oxymask 10.0 10/30/17 19:45 95 26 91 Mask 10.0 10/30/17 16:00 Oxymask 10.0 10/30/17 15:07 95 26 91 Mask 10.0 10/30/17 11:33 96 26 89 Mask 10.0 10/30/17 10:09 Mask 10.0 10/30/17 07:28 94 24 90 Mask 10.0 Physical Exam General Appearance: no apparent distress, + pertinent finding (not alert, not agitated, oxymask on, lots of secretions heard) Assessment and Plan ON COMFORT MEASURES: - Morphine drip currently at 7mg/hr - to be titrated 1mg/hr q10min for respiratory distress - Atropine drops and scopolamine patch as needed for secretions - IV Ativan 1mg PRN agitation - Pleur-X catheter inserted for comfort yesterday PM - 1.3L fluid drained to date. Further management of Pleur-X as per Dr. Mock Resident Tracking Resident Involvement: Resident Care Provided Care Provided: Adult Hospital Medicine Reviewed: Pt Seen/Exam by Me History Resident Physician Supervision Note: I interviewed and examined the patient. Discussed with Dr. Powell and agree with findings and plan as documented in the note. Any exceptions or clarifications are listed here: Patient obtunded. Spoke with multiple family members at the bedside. He is breathing about 5 times per minute and appears comfortable Obtunded, facemask in place Very coarse breath sounds diffusely, regular rate and rhythm Abdomen soft Extremities slightly mottled, still warm to the touch 77-year-old male with metastatic lung cancer, now on comfort measures only -Continue morphine, scopolamine, atropine drops as needed -Expect him to pass within the next 24 hours Documented By: Mary Arambula
[2017-10-31] MEDS: ALBUT/IPRATROP 3MG/0.5MG NEB 3 ML VIAL INH SCH ×4 (07:13→20:33)
[2017-10-31] MEDS: ACETYLCYSTEINE 20% INHAL SOLN ***DISPENSED BY RESP. INH SCH ×4 (07:13→20:33)
[2017-10-31] MEDS: BUDESONIDE 0.5 MG/2 ML VIAL (PULMICORT) INH SCH ×2 (07:13→20:34)
[2017-10-31 07:15] VITALS: PULSE 104; O2SAT 92
[2017-10-31] MEDS ORDERED: NURSING VERBAL MED ORDER ONE ×3 (07:45→12:15)
[2017-10-31] MEDS: NICOTINE 21 MG/24 HR TDSY TD SCH (09:20)
[2017-10-31] MEDS: [UNRECOGNIZED DRUG - OTHER] SCH ×3 (09:21→15:20)
[2017-10-31] MEDS: LORAZEPAM 2 MG/ML 1 ML VIAL IV PRN ×2 (12:01→17:38)
[2017-10-31 16:00] VITALS: O2SAT 92
[2017-10-31] MEDS: MoRPHine SULF/NSS 250MG/250ML 250 ML IV SCH (20:30)
[2017-11-01] MEDS: [UNRECOGNIZED DRUG - OTHER] SCH
[2017-11-01] MEDS: CHECK SCOPOLAMINE PATCH PLACEMENT SCH ×2 (01:11→01:13)
--- NOTE | 2017-11-01 15:21 | Death Summary ---
Summary of Admission Date Oct 24, 2017 at 10:39 (Alka. Powell MD) Date & Time of Nov 01, 2017. 02:20 (Alka. Powell MD) Cause of Hypoxia, respiratory decompensation (Alka. Powell MD) Secondary Diagnoses Small cell lung cancer, pneumonia (Alka. Powell MD) Hospital Course 77-year-old male with a past medical history of end stage COPD with 3L home O2 at baseline, CAD with CABG x 4 with congestive heart failure, type 2 diabetes, and hypertension, was transferred from [facility] for worsening shortness of breath and pneumonia. His chest x-ray showed a questionable mass or infiltrate that had changed in size from a few years ago, and due to concern of the worsening pulmonary status of the patient with the concerning chest x-ray findings the patient was transferred to [facility]. He was treated with IV antibiotics Vancomycin, Zosyn, and Levaquin, and managed with nebulizers and mucolytics. Cardiothoracics and pulmonology were consulted, as were cardiology. CT scan of chest done on 10/23/2017 showed: multiple hypodense lesions noted throughout the liver, the largest one in the left lobe of the liver measuring 3 cm. Right supraclavicular lymph node measuring 1.6 x 1.4 cm, mediastinal and left hilar lymphadenopathy, subcarinal lymph node measuring up to 5.6 cm, dominant left hilar lymph node measuring 2.5 cm, right hilum appears to be replaced by ill-defined soft tissue mass which cannot be really measured on the non-contrast study, results in the complete obstruction of the bronchus intermedius. Upper abdominal lymphadenopathy noted. Small to moderate right pleural effusion noted. 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 CT scan of the chest done on 10/25/2017 reported: large irregular right infrahilar/hilar mass causing occlusion of the bronchus intermedius and volume loss within the right middle lobe and right lower lobe, decreasing right pleural effusion noted after thoracocentesis, extensive right supraclavicular communist of the bilateral hilar and upper abdominal lymphadenopathy noted. Descending thoracic aorta can resume measuring 5 x 3.7 cm, moderate emphysema noted. Nodular septal thickening within the right lung favoring lymphangitic carcinomatosis noted. Bronchoscopic invitation by Dr. Huff was performed on 10/25/2017 and his findings were: -Bronchus intermedius: Caudal and notable mucosal tumor infiltration with external compression of the right middle lobe and right lower lobes -Right middle lobe: Mucosal Tumor infiltration with external compression of the takeoff -Right lower lobe: Mucosal Tumor infiltration with external compression of the takeoff. Hematology and oncology were consulted. In view of his extensive stage small- cell lung cancer, goal was palliative and not curative. CT scan of the abdomen and pelvis, bone scan as well as brain MRI were performed for initial staging workup. Bone scan done on 10/26/2017 showed: some increased activity noted in the left made posteriorly. No other suspicious findings noted in the any other bones. Brain MRI done on 10/25/2017 reported: 4.1 x 3.3 x 3.6 cm peripheral enhancing lesion noted in the anterior right frontal region appears to be extraction and location, mild to moderate surrounding edema without any mass effect noted, this could be meningioma but requires CT scan for further evaluation. CT scan of the abdomen and pelvis done on 10/25/2017 revealed: multiple liver lesions suspicious for metastasis, scattered upper abdominal lymphadenopathy. Prophylaxis allopurinol was started and plans for systemic chemotherapy were put in place. Surgery was consulted 10/28 for port insertion for chemotherapy, to be performed on 10/31/2017. However the procedure was cancelled the following day as the patient acutely decompensated. Family and patient changed status from full code to do not resuscitate Palliative was consulted on 10/29/2017 where goals of care were discussed in detail. Patient and family switched to comfort measures only, which included the insertion of a PleurX catheter on the same day for some symptom relief of the dyspnea. Patient on 11/01/2017 at 2:20. (Alka. Powell MD) Resident Tracking Resident Involvement: Resident Care Provided Care Provided: Adult Hospital Medicine (Alka. Powell MD) Reviewed: Pt Seen/Exam by Me (Mary Arambula MD) History Resident Physician Supervision Note: Discussed with Dr. Powell and agree with findings and plan as documented in the note. Any exceptions or clarifications are listed here: Pt admitted with PNA and pleural effusion, found to have widespread metastatic lung CA, rapidly progressed. Transitioned to comfort measures only and . Documented By: Mary Arambula (Mary Arambula MD)
[2017-11-03] MEDS ORDERED: SCOPOLAMINE 1.5 MG TDSY TD SCH (06:00)
== END 2017-11-01 06:49 | disposition expired | DRG 166 ==
LOC: C.2T 21:08 → INTOOBSV 21:08 → OBSVTOIN 10-24 10:39 → ENRESERV 10-26 18:54 → C.4E 10-26 20:30
PROVIDERS: ADMIT Internal Medicine; ATTEND Family Medicine
PROC: 0W993ZX Drainage of Right Pleural Cavity, Percutaneous Approach, Diagnostic (ICD-10-PCS; 2017-10-24)
PROC: 0B9F8ZZ Drainage of Right Lower Lung Lobe, Via Natural or Artificial Opening Endoscopic (ICD-10-PCS; principal; 2017-10-25 07:53)
DX: C78.00 Secondary malignant neoplasm of unspecified lung (principal); J96.21 Acute and chronic respiratory failure with hypoxia; J18.9 Pneumonia, unspecified organism; J91.0 Malignant pleural effusion; J98.19 Other pulmonary collapse; C7A.8 Other malignant neuroendocrine tumors; C78.7 Secondary malignant neoplasm of liver and intrahepatic bile duct; C77.2 Secondary and unspecified malignant neoplasm of intra-abdominal lymph nodes; J44.0 Chronic obstructive pulmonary disease with (acute) lower respiratory infection; I50.30 Unspecified diastolic (congestive) heart failure; E11.9 Type 2 diabetes mellitus without complications; I11.0 Hypertensive heart disease with heart failure; E78.5 Hyperlipidemia, unspecified; I25.10 Atherosclerotic heart disease of native coronary artery without angina pectoris; F32.9 Major depressive disorder, single episode, unspecified; N40.0 Benign prostatic hyperplasia without lower urinary tract symptoms; G89.29 Other chronic pain; F17.210 Nicotine dependence, cigarettes, uncomplicated; Z99.81 Dependence on supplemental oxygen; I25.2 Old myocardial infarction; Z95.1 Presence of aortocoronary bypass graft; Z79.1 Long term (current) use of non-steroidal anti-inflammatories (NSAID); Z79.899 Other long term (current) drug therapy; Z82.49 Family history of ischemic heart disease and other diseases of the circulatory system; Z83.3 Family history of diabetes mellitus